=== PATIENT | female | born 1955 | race Caucasian/White ===

== ENCOUNTER 2017-07-16 00:24 | Outpatient (RCR) | payer OTHER, SELFPAY ==
[2017-07-16 11:23] VITALS: BP 148/76; PULSE 110; RESP 20; TEMP 36.2; BMI 67.6
--- NOTE | 2017-07-16 12:54 | PCM.WC.HP ---
(1) Obesity (BMI 30.0-34.9) Status: Chronic Current Visit: Yes Code(s): E66.9 - Obesity, unspecified (2) Diabetes mellitus Status: Chronic Current Visit: Yes Qualifiers: Diabetes mellitus type: type 2 Diabetes mellitus complication status: with neurologic complications Code(s): E11.9 - Type 2 diabetes mellitus without complications (3) Diabetic foot ulcer associated with type 2 diabetes mellitus Status: Acute Current Visit: Yes Qualifiers: Diabetic foot ulcer location: midfoot Laterality: left Non-pressure ulcer stage: with necrosis of muscle Qualified Code(s): E11.621 - Type 2 diabetes mellitus with foot ulcer; L97.423 - Non-pressure chronic ulcer of left heel and midfoot with necrosis of muscle; L97.423 - Non-pressure chronic ulcer of left heel and midfoot with necrosis of muscle; L97.423 - Non-pressure chronic ulcer of left heel and midfoot with necrosis of muscle; L97.423 - Non-pressure chronic ulcer of left heel and midfoot with necrosis of muscle Code(s): E11.621 - Type 2 diabetes mellitus with foot ulcer; L97.509 - Non-pressure chronic ulcer of other part of unspecified foot with unspecified severity (4) Gangrene associated with type 2 diabetes mellitus Status: Acute Current Visit: Yes Code(s): E11.52 - Type 2 diabetes mellitus with diabetic peripheral angiopathy with gangrene (5) Cellulitis of foot Status: Acute Current Visit: Yes Code(s): L03.119 - Cellulitis of unspecified part of limb History of Present Illness Date of Service: 07/16/17 Chief Complaint: Mckeon Grade IV diabetic left foot ulceration with gangrene and cellulitis History of Wound: This is a 62-year-old [facility] female who was in her normal state of health until approximately 3 months ago. Apparently, due to an ill-fitting shoe, she developed a small ulceration on the dorsum of her left foot. This became progressively more severe. She was treated by various means by her primary care physician, but the ulceration worsened, subsequently developing into gangrene and cellulitis. Patient presents at this time with a reddened, erythematous, swollen left foot and tino gangrene on the dorsum of her left foot which extends well into the subcutaneous tissue and likely involves tendon. Past Medical History Past Medical History: Chronic Problems Obesity (BMI 30.0-34.9) (Chronic) Diabetes mellitus (Chronic) Past Medical History: Patient is known to be diabetic, suffering from diabetes mellitus type 2. It is suspected that her diabetes is poorly controlled. She checks blood sugars twice weekly. She denies a history of myocardial infarction, congestive heart failure, hypertension, cerebrovascular accident, cancer, pulmonary disease, renal disease, thyroid disease, gastroesophageal reflux disease, arthritis, and hyperlipidemia. The patient is obese. Surgical History: - - Patient is undergone a section in the remote past. Umbilical hernia repair was performed in 1983. The patient is a T12 P 11 Ab1. Allergies/Adverse Reactions: Allergies cephalexin [From Keflex] Allergy (Verified 07/16/17 12:16) Rash - Family History Maternal - - Patient's mother at age of 49 from cardiac disease. Paternal - - Patient's father is 86 years of age and healthy. Social History: The patient is , and lives with her . 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 She denies use of alcohol and tobacco products. Smoking Status: Never smoker Tobacco Use: Non-smoker Alcohol: None Drugs: None Review of Systems Constitutional: Denies: Chills, Fever, Weight Change Eyes: Denies: Pain, Vision Change HEENT: Denies: Difficulty Hearing, Difficulty Swallowing, Sinus Congestion Cardiovascular: Denies: Chest Pain, Palpitations Respiratory: Denies: Cough, Shortness of Breath Gastrointestinal: Denies: Diarrhea, Nausea, Vomiting Genitourinary: Denies: Dysuria, Hematuria Endocrine: Denies: Heat/ Cold Intolerance, Polydipsia, Polyuria Hematologic/ Lymphatic: Denies: Easy Bruising, Easy Bleeding - Physical Exam Vital Signs Temp Pulse Resp BP 97.2 F L 110 H 20 H 148/76 H 07/16/17 11:23 07/16/17 11:23 07/16/17 11:23 07/16/17 11:23 General: Alert, Oriented x3, Cooperative, No apparent distress, Well developed, Well nourished, - - Patient is morbidly obese. HEENT: Atraumatic, PERRLA, EOMI, Normocephalic Oral: Moist Mucosa, No Gingival or Mucosal Lesions/ Ulcerations Neck: Supple, No JVD, Negative Carotid Bruits, No Nodes, No Nuchal Rigidity, Trachea Midline Lungs: Clear to auscultation, Normal air movement, No rhonchi, No wheeze, No rales Cardiovascular: Regular rate, Regular Rhythm, Normal S1, Normal S2, No murmurs, No Ectopic Activity Abdomen: Soft, Non Tender, Non-Distended, Obese Extremities: No clubbing, No cyanosis, No Calf Tenderness, - - Mild bilateral lower extremity swelling and edema is noted. Swelling and edema particularly noted relative to the left foot. Left foot is reddened and erythematous. Tino gangrene engulfs nearly the entire dorsum of the left foot, appearing to extend down to involve tendons. This represents a Mckeon Grade IV diabetic foot ulceration. There is also a small, professional ulceration on the left lateral calf. Wound Measurements and Assessment - Nurse 1 - General Ulcer Measurement Start: 07/16/17 00:28 Freq: Status: Active Protocol: Activity Type Activity Date Activity User E-Sign Co-Sign Detail Recorded Client Recorded Date Recorded By Document 07/16/17 11:23 DL [id number] 07/16/17 11:48 DL 07/16/17 11:23 Wound Center Nurse 1 [Ulcer Assessment Protocol: WC.WD.LOC] #2 L Lat LE -Current Size (cm) - Length 1 -Current Size (cm) - Width 0.7 -Current Size (cm) - Depth 0.1 -Total Square Cm 0.7 -Photo Taken Yes -Classification - Thickness Unclassifiable (Eschar Covered ) -Exudate Amt None Present (0 %) -Wound Margin Thickened -Granulation Amt None Present (0 %) -Necrosis Amt Large (67-100%) -Necrotic Tissue Type Eschar -Structure Exposed N/A -Texture (Kristel-wound Skin Appearance) No Abnormality -Moisture (Kristel-wound Skin Appearance No Abnormality ) -Color (Kristel-wound Skin Appearance) Erythema -Temperature (Kristel-wound Skin No Abnormality Appearance) (Pt Warm) -Ulcer Cleansing Wound Cleanser -Foul Odor after Cleansing No -Anesthetic Used 4% Lidocaine Solution #1 L Dorsal Foot -Current Size (cm) - Length 7.7 -Current Size (cm) - Width 9.6 -Current Size (cm) - Depth 0.6 -Total Square Cm 73.92 -Photo Taken Yes -Epithelialization Small 1-33% -Classification - Thickness Full Thickness without Exposed Support Structure -Classification - Mckeon Grading ( Grade 3 Diabetic Ulcer) -Exudate Amt Medium (34-66%) -Exudate Type Serosanguineous -Wound Margin Distinct, Outline Attached -Granulation Amt Small (1-33%) -Granulation Quality Red -Necrosis Amt Large (67-100%) -Necrotic Tissue Type Adherent Slough -Structure Exposed N/A -Texture (Kristel-wound Skin Appearance) Localized Edema -Moisture (Kristel-wound Skin Appearance No Abnormality ) -Color (Kristel-wound Skin Appearance) Erythema -Temperature (Kristel-wound Skin Hot Appearance) -Tenderness on Palpation (Kristel-wound Yes Skin Appearance) -Ulcer Cleansing Wound Cleanser -Foul Odor after Cleansing No -Anesthetic Used 4% Lidocaine Solution [Edema Assessment] -Right Calf (cm) 30 -Right Ankle (cm) 20.5 -Left Calf (cm) 31 -Left Ankle (cm) 24 WC - Nurse 2 - General Ulcer CM Notes Start: 07/16/17 00:28 Freq: Status: Active Protocol: Activity Type Activity Date Activity User E-Sign Co-Sign Detail Recorded Client Recorded Date Recorded By Document 07/16/17 12:43 [email or web address] [id number] 07/16/17 12:49 07/16/17 12:43 Wound Center Nurse 2 [Procedure/Treatment] #2 L Lat LE -Time 12:44 -Correct Patient Yes -Correct Side, Site, Position Yes -Procedure Performed No -Wound/Ulcer Outcome Not Healed -Ulcer Cleansing Not Cleansed -Cetacaine [place] No -Bleeding Controlled with NA #1 L Dorsal Foot -Time 12:49 -Correct Patient Yes -Correct Side, Site, Position Yes -Procedure Performed No -Wound/Ulcer Outcome Not Healed [See Physician Procedure note for Specifics] Pain Scale: 0-10 Numeric [Pain] -Is Patient Pain Free? Yes Neurological: Cranial nerves II-XII grossly intact Psych/Mental Status: Normal Affect, Appropriate, Alert and oriented to time, place, person, mood and affect Debridement Note Post-Debridement Measurements/Treatment WC - Nurse 2 - General Ulcer CM Notes Start: 07/16/17 00:28 Freq: Status: Active Protocol: Activity Type Activity Date Activity User E-Sign Co-Sign Detail Recorded Client Recorded Date Recorded By Document 07/16/17 12:43 [email or web address] [id number] 07/16/17 12:49 07/16/17 12:43 Wound Center Nurse 2 #2 L Lat LE -Time 12:44 -Correct Patient Yes -Correct Side, Site, Position Yes -Procedure Performed No -Wound/Ulcer Outcome Not Healed -Ulcer Cleansing Not Cleansed -Cetacaine [place] No -Bleeding Controlled with NA #1 L Dorsal Foot -Time 12:49 -Correct Patient Yes -Correct Side, Site, Position Yes -Procedure Performed No -Wound/Ulcer Outcome Not Healed Pain Scale: 0-10 Numeric Is Patient Pain Free? Yes No debridement was completed today Assessment/Plan Active Problems Obesity (BMI 30.0-34.9) (Chronic) Diabetes mellitus (Chronic) Diabetic foot ulcer associated with type 2 diabetes mellitus (Acute) Gangrene associated with type 2 diabetes mellitus (Acute) Cellulitis of foot (Acute) Assessment: This is a 62-year-old [facility] female who presents with a diabetic left foot ulceration representing a Mckeon Grade IV diabetic foot ulceration. There is tino gangrene, with apparent involvement of underlying subcutaneous tissues and tendons. There is an associated cellulitis. It appears as though this process started approximately 3 months ago with ill-fitted footwear. The patient's presenting manifestations are highly concerning for a limb threatening situation. This issue has been discussed with the patient and her , who is at the bedside, in detail. Plan: Arrangements are to be made for the patient to be transferred to the hospital Emergency Department. Delay of diagnosis and management is not felt to be in the patient's best interest, as her presenting symptoms and manifestations presented limb threatening condition. Diagnostic assessment will likely include admission laboratory studies, including a CBC, a metabolic profile, hemoglobin A1c, wound cultures, radiographs of the left foot, etc. Consultation with a practice consultant would likely be of benefit. It is anticipated that the patient will be started on appropriate antibiotic coverage. Noninvasive lower extremity arterial assessment will allow for assessment of the patient's lower extremity arterial perfusion. Once the patient's medical condition has been stabilized, her continuing outpatient management can be managed at the [facility]. Arrangements have been initiated for patient transfer.
--- NOTE | 2017-07-16 13:05 | HP.PCM_ITS ---
(1) Obesity (BMI 30.0-34.9) Status: Chronic Current Visit: Yes Code(s): E66.9 - Obesity, unspecified (2) Diabetes mellitus Status: Chronic Current Visit: Yes Qualifiers: Diabetes mellitus type: type 2 Diabetes mellitus complication status: with neurologic complications Code(s): E11.9 - Type 2 diabetes mellitus without complications (3) Diabetic foot ulcer associated with type 2 diabetes mellitus Status: Acute Current Visit: Yes Qualifiers: Diabetic foot ulcer location: midfoot Laterality: left Non-pressure ulcer stage: with necrosis of muscle Qualified Code(s): E11.621 - Type 2 diabetes mellitus with foot ulcer; L97.423 - Non-pressure chronic ulcer of left heel and midfoot with necrosis of muscle; L97.423 - Non-pressure chronic ulcer of left heel and midfoot with necrosis of muscle; L97.423 - Non-pressure chronic ulcer of left heel and midfoot with necrosis of muscle; L97.423 - Non- pressure chronic ulcer of left heel and midfoot with necrosis of muscle Code(s): E11.621 - Type 2 diabetes mellitus with foot ulcer; L97.509 - Non- pressure chronic ulcer of other part of unspecified foot with unspecified severity (4) Gangrene associated with type 2 diabetes mellitus Status: Acute Current Visit: Yes Code(s): E11.52 - Type 2 diabetes mellitus with diabetic peripheral angiopathy with gangrene (5) Cellulitis of foot Status: Acute Current Visit: Yes Code(s): L03.119 - Cellulitis of unspecified part of limb History of Present Illness Date of Service: 07/16/17 Chief Complaint: Mckeon Grade IV diabetic left foot ulceration with gangrene and cellulitis History of Wound: This is a 62-year-old [facility] female who was in her normal state of health until approximately 3 months ago. Apparently, due to an ill- fitting shoe, she developed a small ulceration on the dorsum of her left foot. This became progressively more severe. She was treated by various means by her primary care physician, but the ulceration worsened, subsequently developing into gangrene and cellulitis. Patient presents at this time with a reddened, erythematous, swollen left foot and tino gangrene on the dorsum of her left foot which extends well into the subcutaneous tissue and likely involves tendon. Past Medical History Past Medical History: Chronic Problems Obesity (BMI 30.0-34.9) (Chronic) Diabetes mellitus (Chronic) Past Medical History: Patient is known to be diabetic, suffering from diabetes mellitus type 2. It is suspected that her diabetes is poorly controlled. She checks blood sugars twice weekly. She denies a history of myocardial infarction , congestive heart failure, hypertension, cerebrovascular accident, cancer, pulmonary disease, renal disease, thyroid disease, gastroesophageal reflux disease, arthritis, and hyperlipidemia. The patient is obese. Surgical History: - - Patient is undergone a section in the remote past. Umbilical hernia repair was performed in 1983. The patient is a T12 P 11 Ab1. Allergies/Adverse Reactions: Allergies cephalexin [From Keflex] Allergy (Verified 07/16/17 12:16) Rash - Family History Maternal - - Patient's mother at age of 49 from cardiac disease. Paternal - - Patient's father is 86 years of age and healthy. Social History: The patient is , and lives with her . 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 She denies use of alcohol and tobacco products. Smoking Status: Never smoker Tobacco Use: Non-smoker Alcohol: None Drugs: None Review of Systems Constitutional: Denies: Chills, Fever, Weight Change Eyes: Denies: Pain, Vision Change HEENT: Denies: Difficulty Hearing, Difficulty Swallowing, Sinus Congestion Cardiovascular: Denies: Chest Pain, Palpitations Respiratory: Denies: Cough, Shortness of Breath Gastrointestinal: Denies: Diarrhea, Nausea, Vomiting Genitourinary: Denies: Dysuria, Hematuria Endocrine: Denies: Heat/ Cold Intolerance, Polydipsia, Polyuria Hematologic/ Lymphatic: Denies: Easy Bruising, Easy Bleeding - Physical Exam Vital Signs Temp Pulse Resp BP 97.2 F L 110 H 20 H 148/76 H 07/16/17 11:23 07/16/17 11:23 07/16/17 11:23 07/16/17 11:23 General: Alert, Oriented x3, Cooperative, No apparent distress, Well developed, Well nourished, - - Patient is morbidly obese. HEENT: Atraumatic, PERRLA, EOMI, Normocephalic Oral: Moist Mucosa, No Gingival or Mucosal Lesions/ Ulcerations Neck: Supple, No JVD, Negative Carotid Bruits, No Nodes, No Nuchal Rigidity, Trachea Midline Lungs: Clear to auscultation, Normal air movement, No rhonchi, No wheeze, No rales Cardiovascular: Regular rate, Regular Rhythm, Normal S1, Normal S2, No murmurs, No Ectopic Activity Abdomen: Soft, Non Tender, Non-Distended, Obese Extremities: No clubbing, No cyanosis, No Calf Tenderness, - - Mild bilateral lower extremity swelling and edema is noted. Swelling and edema particularly noted relative to the left foot. Left foot is reddened and erythematous. Tino gangrene engulfs nearly the entire dorsum of the left foot, appearing to extend down to involve tendons. This represents a Mckeon Grade IV diabetic foot ulceration. There is also a small, professional ulceration on the left lateral calf. Wound Measurements and Assessment - Nurse 1 - General Ulcer Measurement Start: 07/16/17 00:28 Freq: Status: Active Protocol: Activity Type Activity Date Activity User E-Sign Co-Sign Detail Recorded Client Recorded Date Recorded By Document 07/16/17 11:23 DL [id number] 07/16/17 11:48 DL 07/16/17 11:23 Wound Center Nurse 1 [Ulcer Assessment Protocol: WC.WD.LOC] #2 L Lat LE -Current Size (cm) - Length 1 -Current Size (cm) - Width 0.7 -Current Size (cm) - Depth 0.1 -Total Square Cm 0.7 -Photo Taken Yes -Classification - Thickness Unclassifiable (Eschar Covered ) -Exudate Amt None Present (0 %) -Wound Margin Thickened -Granulation Amt None Present (0 %) -Necrosis Amt Large (67-100%) -Necrotic Tissue Type Eschar -Structure Exposed N/A -Texture (Kristel-wound Skin Appearance) No Abnormality -Moisture (Kristel-wound Skin Appearance No Abnormality ) -Color (Kristel-wound Skin Appearance) Erythema -Temperature (Kristel-wound Skin No Abnormality Appearance) (Pt Warm) -Ulcer Cleansing Wound Cleanser -Foul Odor after Cleansing No -Anesthetic Used 4% Lidocaine Solution #1 L Dorsal Foot -Current Size (cm) - Length 7.7 -Current Size (cm) - Width 9.6 -Current Size (cm) - Depth 0.6 -Total Square Cm 73.92 -Photo Taken Yes -Epithelialization Small 1-33% -Classification - Thickness Full Thickness without Exposed Support Structure -Classification - Mckeon Grading ( Grade 3 Diabetic Ulcer) -Exudate Amt Medium (34-66%) -Exudate Type Serosanguineous -Wound Margin Distinct, Outline Attached -Granulation Amt Small (1-33%) -Granulation Quality Red -Necrosis Amt Large (67-100%) -Necrotic Tissue Type Adherent Slough -Structure Exposed N/A -Texture (Kristel-wound Skin Appearance) Localized Edema -Moisture (Kristel-wound Skin Appearance No Abnormality ) -Color (Kristel-wound Skin Appearance) Erythema -Temperature (Kristel-wound Skin Hot Appearance) -Tenderness on Palpation (Kristel-wound Yes Skin Appearance) -Ulcer Cleansing Wound Cleanser -Foul Odor after Cleansing No -Anesthetic Used 4% Lidocaine Solution [Edema Assessment] -Right Calf (cm) 30 -Right Ankle (cm) 20.5 -Left Calf (cm) 31 -Left Ankle (cm) 24 WC - Nurse 2 - General Ulcer CM Notes Start: 07/16/17 00:28 Freq: Status: Active Protocol: Activity Type Activity Date Activity User E-Sign Co-Sign Detail Recorded Client Recorded Date Recorded By Document 07/16/17 12:43 [email or web address] [id number] 07/16/17 12:49 07/16/17 12:43 Wound Center Nurse 2 [Procedure/Treatment] #2 L Lat LE -Time 12:44 -Correct Patient Yes -Correct Side, Site, Position Yes -Procedure Performed No -Wound/Ulcer Outcome Not Healed -Ulcer Cleansing Not Cleansed -Cetacaine [place] No -Bleeding Controlled with NA #1 L Dorsal Foot -Time 12:49 -Correct Patient Yes -Correct Side, Site, Position Yes -Procedure Performed No -Wound/Ulcer Outcome Not Healed [See Physician Procedure note for Specifics] Pain Scale: 0-10 Numeric [Pain] -Is Patient Pain Free? Yes Neurological: Cranial nerves II-XII grossly intact Psych/Mental Status: Normal Affect, Appropriate, Alert and oriented to time, place, person, mood and affect Debridement Note Post-Debridement Measurements/Treatment WC - Nurse 2 - General Ulcer CM Notes Start: 07/16/17 00:28 Freq: Status: Active Protocol: Activity Type Activity Date Activity User E-Sign Co-Sign Detail Recorded Client Recorded Date Recorded By Document 07/16/17 12:43 [email or web address] [id number] 07/16/17 12:49 07/16/17 12:43 Wound Center Nurse 2 #2 L Lat LE -Time 12:44 -Correct Patient Yes -Correct Side, Site, Position Yes -Procedure Performed No -Wound/Ulcer Outcome Not Healed -Ulcer Cleansing Not Cleansed -Cetacaine [place] No -Bleeding Controlled with NA #1 L Dorsal Foot -Time 12:49 -Correct Patient Yes -Correct Side, Site, Position Yes -Procedure Performed No -Wound/Ulcer Outcome Not Healed Pain Scale: 0-10 Numeric Is Patient Pain Free? Yes No debridement was completed today Assessment/Plan Active Problems Obesity (BMI 30.0-34.9) (Chronic) Diabetes mellitus (Chronic) Diabetic foot ulcer associated with type 2 diabetes mellitus (Acute) Gangrene associated with type 2 diabetes mellitus (Acute) Cellulitis of foot (Acute) Assessment: This is a 62-year-old [facility] female who presents with a diabetic left foot ulceration representing a Mckeon Grade IV diabetic foot ulceration. There is tino gangrene, with apparent involvement of underlying subcutaneous tissues and tendons. There is an associated cellulitis. It appears as though this process started approximately 3 months ago with ill-fitted footwear. The patient's presenting manifestations are highly concerning for a limb threatening situation. This issue has been discussed with the patient and her , who is at the bedside, in detail. Plan: Arrangements are to be made for the patient to be transferred to the hospital Emergency Department. Delay of diagnosis and management is not felt to be in the patient's best interest, as her presenting symptoms and manifestations presented limb threatening condition. Diagnostic assessment will likely include admission laboratory studies, including a CBC, a metabolic profile, hemoglobin A1c, wound cultures, radiographs of the left foot, etc. Consultation with a can tender would likely be of benefit. It is anticipated that the patient will be started on appropriate antibiotic coverage. Noninvasive lower extremity arterial assessment will allow for assessment of the patient's lower extremity arterial perfusion. Once the patient's medical condition has been stabilized, her continuing outpatient management can be managed at the [facility]. Arrangements have been initiated for patient transfer.
== END 2017-08-11 23:59 ==
LOC: WC 00:24
PROVIDERS: Visit Provider Surgery
DX: E11.621 Type 2 diabetes mellitus with foot ulcer (principal); E66.01 Morbid (severe) obesity due to excess calories; Z71.3 Dietary counseling and surveillance; L97.423 Non-pressure chronic ulcer of left heel and midfoot with necrosis of muscle; E11.52 Type 2 diabetes mellitus with diabetic peripheral angiopathy with gangrene; L03.119 Cellulitis of unspecified part of limb
CPT/HCPCS: 99212; G0463

== ENCOUNTER 2017-08-26 14:14 | Inpatient (IN) | payer OTHER, SELFPAY ==
[2017-08-26 14:42] VITALS: BP 180/84; PULSE 73; RESP 16; TEMP 36.7; O2SAT 95
[2017-08-26 14:48] VITALS: BMI 31.6
[2017-08-26 14:52] VITALS: BMI 31.6
[2017-08-26 15:25] VITALS: PULSE 68
--- NOTE | 2017-08-26 15:25 | PCM.HP.STD ---
Problem List (1) Gangrene of left foot Status: Chronic (2) Cellulitis of left foot Status: Resolved (3) Diabetic foot ulcer associated with type 2 diabetes mellitus Status: Acute Qualifiers: Diabetic foot ulcer location: midfoot Laterality: left Non-pressure ulcer stage: with necrosis of muscle Qualified Code(s): E11.621 - Type 2 diabetes mellitus with foot ulcer; L97.423 - Non-pressure chronic ulcer of left heel and midfoot with necrosis of muscle (4) Chronic ulcer of left foot with necrosis of muscle Status: Chronic (5) Diabetes mellitus Status: Chronic Qualifiers: Diabetes mellitus type: type 2 Diabetes mellitus complication detail: with polyneuropathy (6) Obesity (BMI 30.0-34.9) Status: Chronic (7) Peripheral vascular disease Status: Chronic (8) Non-compliance Status: Acute Comment: with medications and with follow up in the wound care clinic (9) Hypertension Status: Chronic History of Present Illness Date of Admission: 08/26/17 Chief Complaint: Pt sent to the hosp by Dr. Aguillon. She has gangrene of the left hallux and a non-healing wound of the dorsum of the left foot and is scheduled for surgery 08/27 for amputation and debridement The patient is a 62 year old F with a past medical history of hypertension, diabetes mellitus type 2, diabetic peripheral polyneuropathy, peripheral vascular disease and obesity who is well known to me from a recent admission to [facility] in early July 2017 for wet gangrene of the left lower extremity associated with diabetes mellitus type 2 and peripheral vascular disease. She had a stent placed in the left mid popliteal artery and a balloon angioplasty of the mid left anterior tibial artery. At that admission she also had extensive debridement by podiatry and was discharged home on Levaquin and flagyl, metformin, lisinopril and Plavix however currently she is taking only a multivitamin daily and vitamin C. She has not been compliant with her medications and also has not been compliant with regular follow-up in the wound care center or with podiatry. She was seen in the office by Dr. Aguillon today and sent to the hospital for debridement of the wound on the dorsum of the foot and amputation of the Left Hallux. During the admission in July 2017 she complained of exertional chest pain and had an abnormal nuclear stress test. She was taken for cardiac catheterization but that report is not in the chart and we will request it from [facility]. She denies fever, chills, sweats, pain in her left foot, nausea, vomiting, abdominal pain. She is not checking her blood sugars at home. Hemoglobin A1c at her last admission was 6.9%. Past Medical History Past Medical History (Chronic Problems): Chronic Problems Gangrene of left foot (Chronic) Hypertension (Chronic) Obesity (BMI 30.0-34.9) (Chronic) Diabetes mellitus (Chronic) Chronic ulcer of left foot with necrosis of muscle (Chronic) Peripheral vascular disease (Chronic) Diabetes mellitus with neuropathy (Chronic) Malnutrition (Chronic) Allergies cephalexin [From Keflex] Allergy (Verified 08/01/17 10:34) Rash morphine Allergy (Verified 08/01/17 10:34) Unknown Home Medications: Ambulatory Orders Medication Instructions Recorded Ascorbic Acid [Vitamin C] 500 mg PO DAILY@0800 08/26/17 Multivitamins,Therapeutic 1 tablet PO DAILY 08/26/17 [Multivitamin] Surgical History: herniorrhaphy, - - Extensive debridement of the left foot in July 2017 secondary to wet gangrene. She had an angiogram of the left lower extremity with a stent placed in the popliteal artery and balloon angioplasty of the left tibial artery down to the dorsalis pedis. Psychiatric History: No pertinent psych hx [employer] History: No pertinent [employer] history Smoking Status: Never smoker Tobacco Use: Non-smoker Alcohol: None Drugs: None - *Family History Maternal History Items: - - Patient's mother at age of 49 from cardiac disease. Paternal History Items: - - Patient's father is 86 years of age and healthy. Review of Systems Constitutional: Denies: Chills, Fever, Weight Change HEENT: Denies: Head Aches, Sinus Congestion, Sinus Drainage Cardiovascular: Denies: Chest Pain, Light Headedness, Palpitations Respiratory: Denies: Cough, Shortness of breath at rest, Sputum production Gastrointestinal: Denies: Abdominal Pain, Nausea, Vomiting Genitourinary: Denies: Dysuria Gynecological: Denies: Breast symptoms, Vaginal bleeding Musculoskeletal: Denies: Foot Pain, Joint Pain, Joint Tenderness, Leg Pain Skin: Reports: Wounds - She has a nonhealing wound on the dorsum of the left foot and dry gangrene of the left hallux.. Denies: Jaundice, Rash Psychiatric: Denies: Anxiety, Depression, Homicidal Ideations, Suicidal Ideations Endocrine: Denies: Change in Body Habitus Hematologic/ Lymphatic: Denies: Hx of blood clot VTE Information - Inpt Only VTE Present on Admission: No VTE Mechan Device Prophylaxis: SCD's, Knee High CASSANDRA Hose VTE Pharm Prophylaxis ordered?: Yes Patient Problems: Active and Suspected Problems Non-compliance (Acute) with medications and with follow up in the wound care clinic Gangrene associated with type 2 diabetes mellitus (Acute) - Physical Exam General: Alert, Oriented x3, Cooperative, No apparent distress, Well developed, Well nourished HEENT: Atraumatic, PERRLA, EOMI, Normocephalic Oral: Moist Mucosa Neck: Supple, No JVD, Negative Carotid Bruits Lungs: Clear to auscultation, Normal air movement Cardiovascular: Regular rate, Regular Rhythm, Normal S1, Normal S2, Murmur - She has a 2/6 systolic murmur at the second right intercostal space with radiation to the lower left sternal border. Abdomen: Bowel Sounds Present, Soft, Non Tender Extremities: No clubbing, No cyanosis, No edema Skin: Ulcer/ Wound - on the dorsum of the left foot.....80% red granulation tissue with islands of black/louis necrosis.......there is a dry black area on the medial side of the first metatarsal and the great toes is black and dry. The extensor hallux tendon is exposed and dry. the is no odor and no periwound erythema. There is no purulent DC. the margins of the wound on the dorsum of the foot are dry and somewhat rolled under Musculoskeletal: No Muscle Wasting Neurological: Cranial nerves II-XII grossly intact, Neuro grossly intact Psych/Mental Status: Normal Affect, Appropriate - she does not really seem to have good insight to the gravity of the situation and has been non-compliant with medications and follow up and I am very surprised it looks as good as it does Vital Signs Temp Pulse Resp BP Pulse Ox 98.0 F 73 16 180/84 H 95 08/26/17 14:42 08/26/17 14:42 08/26/17 14:42 08/26/17 14:42 08/26/17 14:42 Oxygen Delivery Method Room Air Weight: 195 lb 12.328 oz Body Mass Index (BMI) 31.6 Assessment/Plan Active and Suspected Problems Non-compliance (Acute) with medications and with follow up in the wound care clinic Gangrene associated with type 2 diabetes mellitus (Acute) Impressions 1. Dry gangrene left hallux 2. Nonhealing ulceration on the dorsum of the left foot 3. Peripheral vascular disease-status post stent to the left popliteal artery and balloon angioplasty of the tibial artery in Jul [address] Cm 4. Diabetes mellitus type 2 5. Hypertension 6. Obesity 7. Diabetic peripheral polyneuropathy 8. Noncompliance with medication and with follow-up for wound care-complicates care, management, prognosis and recovery. N.p.o. after midnight 1 dose Lovenox 40 mg subcu now and hold after midnight...... resume 24 hours after surgery Start lisinopril for blood pressure control Hold Plavix for now but would suggest restarting postoperatively due to significant peripheral vascular disease Lab has been ordered. No evidence of infection at this time so no antibiotics have been ordered 4 times daily blood sugars with sliding scale insulin coverage......... diabetes is well controlled as an outpatient with diet alone Code Visit Inpatient E&M: 19167 Init Hosp L2
--- NOTE | 2017-08-26 15:48 | NURSING ---
wound photo: left foot
[2017-08-26] MEDS: 0.9% Normal Saline 1,000 ML 50 ML IV (16:26)
[2017-08-26 17:21] LABS: Bedside Glucose 145 mg/dL (70-110)
--- NOTE | 2017-08-26 17:52 | PN_ITS ---
Patient Problems: Active and Suspected Problems Non-compliance (Acute) with medications and with follow up in the wound care clinic Gangrene associated with type 2 diabetes mellitus (Acute) Subjective: This 62-year-old diabetic female was directly admitted to the hospital this afternoon in order to be medically optimized prior to undergoing her surgical procedure tomorrow afternoon August 27. The patient is well-known to me, as I followed the patient last time she was admitted in early July. After vascular optimization by Dr. Cm on July 19, I surgically debrided the dorsal left foot ulcer on July 20. After first debridement procedure, the left hallux remained slightly dusky, and there were some areas of the ulcer that showed less bleeding than other parts. The patient and her were both notified that further procedures would need to be done in the future, however at this point we would need to let the area demarcate over the coming weeks. After the patient was eventually discharged from the hospital, she has been following up with me in office. Initially, the patient was non compliant and placed what she described as a charcoal tar/olive oil mix over the ulcer because she said it was shown to heal wounds in the [facility]. She also would show up to office wearing a boot with laces overlying the ulcer site. It was stressed to the patient the importance of following dressing change instructions and keeping pressure off of the ulcer site and left hallux. The last month the ulcer has continued to demarcate as well as the left hallux. At this point, the area has been remaining stable and further surgical debridement as well as partial amputation of the first ray is warranted at this time. Currently, the patient denies any feelings of nausea, vomiting, fever, chills, or pain to the left foot. - Physical Exam General: Alert, Oriented x3, Cooperative Extremities: Diminished Peripheral Pulses - DP and PT pulses nonpalpable at this time due to ulcer., Edema - Slight lower extremity edema appreciated, - - Delayed capillary refill time appreciated to digits Skin: Ulcer/ Wound - Ulcer appreciated to the dorsal aspect of the right foot. Desiccated tendon appreciated in the ulcer. Dry gangrenous hallux is noted. No purulence, no malodor, no probing, no tracking, no undermining are appreciated at this time. No surrounding cellulitis noted. The ulcer base is a combination of granular tissue, fibrotic tissue, necrotic tissue, and slough. More granulation tissue present proximally and laterally. Musculoskeletal: - - Muscle strength to the left lower extremity unable to be tested due to ulcer. Neurological: - - Protective sensation absent to greater than 2 of 5 pedal sites tested at random using a 5.07 [place] monofilament Psych/Mental Status: Normal Affect, Appropriate Vital Signs Temp Pulse Resp BP Pulse Ox 98.0 F 73 16 180/84 H 95 08/26/17 14:42 08/26/17 14:42 08/26/17 14:42 08/26/17 14:42 08/26/17 14:42 Oxygen Delivery Method Room Air Weight: 88.8 kg Body Mass Index (BMI) 31.6 POC Glucose 08/26/17 17:16 POC Glucose 145 H Assessment/Plan Active and Suspected Problems Non-compliance (Acute) with medications and with follow up in the wound care clinic Gangrene associated with type 2 diabetes mellitus (Acute) Chronic ulcer left dorsal foot Dry gangrene of left hallux Diabetes mellitus II with neuropathy PVD The patient was examined and evaluated bedside this evening. The wound nurse had already seen and evaluated the patient as well as took pictures of the left foot and dressed the foot. The dressing was not taken down this evening, as it had just been wrapped. Order placed for surgical consent for debridement of all necrotic, nonviable, infected soft tissue and bone as well as partial first ray amputation of the left foot. N.p.o. orders also placed for surgery, as patient is scheduled to undergo this procedure on August [address] Mcdonnell already had orders placed for CBC with differential, CMP, ESR, CRP, hemoglobin A1c and results are pending at this time. Vital signs were reviewed. The planned surgical procedure was then discussed in depth and in detail with the patient as well as the patient's with her permission. All risks, benefits, alternative procedures, and possible outcomes were discussed with the patient and her . They are advised that the complications and risks include, but are not limited to, infection, need for further surgeries in the future, reoccurrence, transfer lesions, deformities, weakness, loss of strength, loss of function, further ulceration, nonhealing, delayed healing, blood clots, chronic swelling, arthritis, Charcot foot and ankle, nerve damage, inability to walk, inability to wear shoes, severe pain, complex regional pain syndrome, need for below knee amputation and complete loss of limb, or even loss of life. They relate that they understand all of this. The alternative options were discussed. All of the patient's and the patient's 's questions were answered to their satisfaction. They agree to continue with the planned procedure for tomorrow. Please feel free to contact me with any questions or concerns.
[2017-08-26 18:10] LABS: Absolute Lymphocyte Count 1.94 X10^3/ul (0.83-4.51); Absolute Neutrophil Count 3.2 X10^3/uL (2.0-7.7); Basophil# 0.02 X10^3/uL; Basophil% 0.3 % (0-1); Eosinophil# 0.11 X10^3/uL; Eosinophils% 1.9 % (0-5); Hematocrit 38.5 % (37-47); Hemoglobin 12.6 g/dl (12.0-15.0); Lymphocyte # 1.94 X10^3/ul (4.0); Lymphocyte % 33.2 % (19-41); Mean Corp Hgb Conc 32.7 g/gl (32-36); Mean Corpuscular Hgb 27.7 pg (27.0-32.0); Mean Corpuscular Volume 84.6 fL (81-99); Mean Platelet Vol. 9.4 fl (6.2-12.0); Monocyte# 0.57 X10^3/uL; Monocyte% 9.8 % (0-10); Neutrophil # 3.19 X10^3/uL (2.7-7.7); Neutrophil % 54.6 % (47-70); Platelet Count 240 K/mm3 (150-450); RBC Distribution Width CV 16.1 % (11.6-14.6); Red Blood Count 4.55 M/mm3 (4.2-5.4); White Blood Count 5.8 K/mm3 (4.4-11.0)
[2017-08-26 18:18] LABS: POSITIVE DIFFERENTIAL NO; POSITIVE MORPHOLOGY NO
[2017-08-26 18:26] LABS: Hemoglobin A1c 6.4 % (4.2-6.3)
[2017-08-26 18:51] LABS: ALB/GLOB Ratio 0.9 RATIO (0.9-2.4); AST(SGOT) 27 U/L (15-37); Alanine Aminotransfer ALT/SGPT 25 U/L (12-78); Albumin, Serum 3.2 g/dL (3.4-5.0); Alkaline Phosphatase 66 U/L (45-117); Anion Gap 6 (5-15); BUN 16 mg/dL (7-18); BUN/Creat Ratio 31.1 RATIO (10-20); Calcium,Total 8.9 mg/dL (8.5-10.1); Chloride 105 mmol/L (98-107); Creatinine, Serum 0.51 mg/dL (0.55-1.02); EST Glomerular Filtration Rate 129 mL/min (>60); Est Glom Filt Rate - Afr Amer 156 mL/min (>60); Estimated Creatinine Clearance 107.07 ml/min; Globulin 3.7 g/dL (2.2-4.2); Glucose 131 mg/dL (70-110); Magnesium 1.8 mg/dL (1.6-2.6); Potassium 4.1 mmol/L (3.5-5.1); Protein, Total 6.9 g/dL (6.4-8.2); Sodium Level 138 mmol/L (136-145)
[2017-08-26 18:56] LABS: Erythrocyte Sedimentation Rate 38 mm/hr (0-30)
[2017-08-26 21:46] VITALS: BP 147/76; PULSE 71; RESP 16; TEMP 36.9; O2SAT 95
[2017-08-26] MEDS: Lisinopril 10 MG Tablet PO (22:02)
[2017-08-26 22:16] LABS: Bedside Glucose 139 mg/dL (70-110)
[2017-08-27] VITALS (12 sets, daily range): BP systolic 136–182; BP diastolic 68–87; PULSE 66–91; RESP 16–20; TEMP 35.5–36.4; O2SAT 94–97; BMI 31.6
--- NOTE | 2017-08-27 06:00 | EKG12_ITS ---
Test Reason : PRE OP Blood Pressure : / mmHG Vent. Rate : 071 BPM Atrial Rate : 071 BPM P-R Int : 188 ms QRS Dur : 084 ms QT Int : 408 ms P-R-T Axes : 066 044 056 degrees QTc Int : 443 ms Sinus rhythm with occasional Premature ventricular complexes Otherwise normal ECG When compared with ECG of 20-JUL-2017 05:27, Premature ventricular complexes are now Present Confirmed by TIMMY GREEN ([id number]), editor trade journal MARILYN WRIGHT ([id number]) on 09/05/2017 1:40:25 PM Referred By: KIRA Confirmed By:TIMMY GREEN
[2017-08-27 06:40] LABS: Bedside Glucose 131 mg/dL (70-110)
[2017-08-27] MEDS: Multivitamins,Therapeutic Tablet 1 TABLET PO (07:30)
[2017-08-27] MEDS: Ascorbic Acid 500 MG Tablet PO (07:30)
[2017-08-27] MEDS: Lisinopril 10 MG Tablet PO ×2 (07:31→21:43)
--- NOTE | 2017-08-27 12:09 | CASEMGMT ---
RN CM Face to Face with patient for initial transition planning/care coordination assessment. RN CM introduced self and role at [facility]. Patient sitting up in bed, alert and oriented, at bedside. Patient willing to participate in assessment and is able to answer all questions appropriately. Care providers, pharmacy, and demographics verified. See link attached. Patient wishes to discharge home, denies need for home health or DME at this time. Patient states that daughter assists with dressing changes and per patient doctor stated they would be doing a dressing that is once weekly and changed in wound clinic. Patient and state that they have a wheelchair at home as well as cane and crutches. If walker is needed patient and state they will find one on their own. Patient and state they have access to transportation to appointments. Patient states he has no further needs or concerns at this time. CM to follow for discharge planning needs that may arise. Disposition Plan: Patient to discharge home with family support and follow-up plans in place. SEKOU SPRAGUE to monitor for discharge needs.
[2017-08-27] MEDS: 0.9% Normal Saline 1,000 ML 50 ML IV (12:10)
[2017-08-27 12:16] LABS: Bedside Glucose 129 mg/dL (70-110)
--- NOTE | 2017-08-27 14:58 | RAD_ITS ---
STUDY: X-RAY - LEFT FOOT CLINICAL: Female, 62 years old. Fluoroscopic guidance for toe amputation TECHNIQUE: 1 view(s) of the foot. Dose area product: 0.284 cGycm2 COMPARISON: None. FINDINGS: Partial amputation of the first metatarsus. No malalignment. RAD/Foot 2 Views IMPRESSION: Fluoroscopic guidance for first metatarsal amputation. Electronically Signed: Tj Campbell MD at 19:53 EST , Service support ,
--- NOTE | 2017-08-27 15:00 | BON_PTH ---
PATIENT: CLAYTON ALVAREZ LOC: MS3 U#:[id number] AGE/SX: 62/F ROOM: MS311 RE08/26/[address]: Dr. Juan Aguillon DPM : 1955 BED: 1 DIS: 08/29/2017 SPEC #: [id number] RECD: 08/28/17 09:31 STATUS: TORI REJesse #: [id number] CLARITA: 08/27/17 15:[address]: Juan Aguillon DEPT: SURGICAL PATHOLOGY RECD BY: Otis Orr ENTERED: 08/28/17 10:22 SP TYPE: Bone OTHR DR: Dr. Billie Mcdonnell, DO Dr. Rinku Mercado DO Tissues: A - Great toe, NOS B - Bone of foot, NOS Procedures: Decalcification bone/plaque Special Stain Group I Surgery Specimen Level III Surgery Specimen Level IV AFB Stain (control) GMS Stain (control) HEADER OPERATION: Debridement of all nonviable, necrotic, infected soft tissue PRE-OP DIAGNOSIS: Gangrene, left foot, cellulitis, left foot, diabetic foot ulcer, chronic ulcer of left foot with necrosis of muscle, peripheral vascular disease TISSUE SUBMITTED: A. Left great toe and 1st metatarsal, B. Clearance fragment, left foot MICROSCOPIC DIAGNOSIS A. Left great toe and first metatarsal, amputation: Gangrenous necrosis and associated inflammation. Special stains for acid fast bacilli and fungi are negative for organisms; matched controls are appropriate. Detached piece of bone with chronic inflammation, negative for acute osteomyelitis. B. Clearance fragment left foot: A piece of bone with chronic inflammation, negative for acute osteomyelitis. SJ:sophia 09/03/17 MICROSCOPIC DESCRIPTION Slides are reviewed. GROSS DESCRIPTION A - Received in fixative is one container labeled with the patient's name and designated left great toe and first metatarsal. The specimen consists of a portion of toe measuring 6 x 3 x 2.5 cm. The entire skin appears to be brownish-black and gangrenous. Also present in the container are multiple detached pieces of soft tissue measuring in aggregate 6 x 4 x 0.5 cm. Also present in the container are three detached pieces of bone measuring in aggregate 4 x 2.5 x 2.5 cm. Quarter Trimmer sections are submitted in five cassettes as follows: 1 ? Gangrenous portion of skin, 2 ? Detached pieces of soft tissue, 3 ? Bone underneath the gangrenous area, 4 & 5 ? detached pieces of bone. B - Received in fixative is one container labeled with the patient's name and designated clearance fragment left foot. The specimen consists of a piece of bone measuring 1 x 1.2 x 1 cm. The entire specimen is submitted in one cassette after decalcification. / TSERING:sophia 08/28/17 TC:2 CPT: 86376, 54262, 92625, 50329 x2
[2017-08-27] MEDS: Clindamycin 900 MG/50 ML BAG 75 MG IV (15:10)
[2017-08-27] MEDS: Bupivacaine Mpf 0.5% 30 ML VIAL (15:16)
--- NOTE | 2017-08-27 15:26 | PCA ---
PT OFF FLOOR
--- NOTE | 2017-08-27 16:54 | RAD_ITS ---
STUDY: X-RAY - LEFT FOOT CLINICAL: Female, 62 years old. Postop TECHNIQUE: 3 view(s) of the foot. COMPARISON: August 27, 2017 FINDINGS: Normal talus, calcaneus, and tarsal bones. Normal visualized subtalar, talonavicular, calcaneocuboid, tarsal and tarsometatarsal articulations. Postsurgical changes status post amputation of the great toe through the base of the metatarsal.. Normal metatarsophalangeal joint of the great toe. Normal tibial and fibular sesamoid bones. Normal interphalangeal joint of the great toe. Normal phalanges of the great toe. Normal second through fifth metatarsophalangeal joints. Normal interphalangeal joints and phalanges of the lesser toes. There is diffuse soft tissue swelling of the mid to distal medial foot RAD/Foot min 3 Views IMPRESSION: Postsurgical changes status post amputation of the great toe through the proximal metatarsal Electronically Signed: Luis Germain MD at 17:47 EST , Service support ,
--- NOTE | 2017-08-27 16:56 | PCA ---
PT OFF FLOOR
--- NOTE | 2017-08-27 17:04 | PCM.IMDPSTOP ---
Problem List (1) Chronic ulcer of left foot with necrosis of bone Status: Chronic (2) Gangrene of left foot Status: Chronic (3) Diabetes mellitus with neuropathy Status: Chronic (4) Obesity (BMI 30.0-34.9) Status: Chronic (5) Peripheral vascular disease Status: Chronic (6) Malnutrition Status: Chronic Immediate Post-Op Note Date of Procedure: 08/27/17 Primary Surgeon/Physician: Juan Aguillon DPM deputy of counter intelligence: Marci Hardin Pre-Operative Diagnosis: Gangrene of left hallux with chronic ulcer of dorsal left foot down to necrotic bone. Post-Operative Diagnosis: same Surgery/Procedure Performed:: Debridement of ulceration down to bone of left foot with partial first ray amputation. Description of Surgical Findings:: Necrotic and infected ulcer down to bone. Hemostasis controlled. See detailed operation report. The patient tolerated the procedure and anesthesia well. She was transferred to PACU with vital signs stable and vascular status intact to the left foot. All orders were placed electronically and patient will continue to be followed while in the hospital. Estimated Blood Loss: 100 Specimen's removed: Amputated left hallux and distal part of left first metatarsal sent to pathology and microbiology for further evaluation. Clear fragment of left first metatarsal sent to pathology and microbiology for further evaluation. Type of Anesthesia:: Local MAC - Admit VTE Documentation VTE Present on Admission: No VTE Mechan Device Prophylaxis: SCD's VTE Pharm Prophylaxis ordered?: Yes
--- NOTE | 2017-08-27 17:17 | OP.PN_ITS ---
Problem List (1) Chronic ulcer of left foot with necrosis of bone Status: Chronic (2) Gangrene of left foot Status: Chronic (3) Diabetes mellitus with neuropathy Status: Chronic (4) Obesity (BMI 30.0-34.9) Status: Chronic (5) Peripheral vascular disease Status: Chronic (6) Malnutrition Status: Chronic Immediate Post-Op Note Date of Procedure: 08/27/17 Primary Surgeon/Physician: Juan Aguillon DPM bus and trolley inspecting dispatcher: Marci Hardin Pre-Operative Diagnosis: Gangrene of left hallux with chronic ulcer of dorsal left foot down to necrotic bone. Post-Operative Diagnosis: same Surgery/Procedure Performed:: Debridement of ulceration down to bone of left foot with partial first ray amputation. Description of Surgical Findings:: Necrotic and infected ulcer down to bone. Hemostasis controlled. See detailed operation report. The patient tolerated the procedure and anesthesia well. She was transferred to PACU with vital signs stable and vascular status intact to the left foot. All orders were placed electronically and patient will continue to be followed while in the hospital. Estimated Blood Loss: 100 Specimen's removed: Amputated left hallux and distal part of left first metatarsal sent to pathology and microbiology for further evaluation. Clear fragment of left first metatarsal sent to pathology and microbiology for further evaluation. Type of Anesthesia:: Local MAC - Admit VTE Documentation VTE Present on Admission: No VTE Mechan Device Prophylaxis: SCD's VTE Pharm Prophylaxis ordered?: Yes
--- NOTE | 2017-08-27 17:33 | OP.PCM_ITS ---
Problem List (1) Chronic ulcer of left foot with necrosis of bone Status: Chronic (2) Gangrene of left foot Status: Chronic (3) Diabetes mellitus with neuropathy Status: Chronic (4) Obesity (BMI 30.0-34.9) Status: Chronic (5) Peripheral vascular disease Status: Chronic (6) Malnutrition Status: Chronic Report of Operation Date of Procedure: 08/27/17 Pre-Operative Diagnosis: Gangrene of left hallux with chronic ulcer of dorsal left foot down to necrotic bone. Post-Operative Diagnosis: same Surgery/Procedure Performed:: Debridement of ulceration down to bone of left foot with partial first ray amputation. Description of Surgical Findings:: Materials: 2-0 prolene Hemostasis: Anatomic dissection. 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 Clear fragment of left first metatarsal sent to pathology and microbiology for further evaluation. Estimated Blood Loss (mL): 100 Description of Procedure: Indications: This patient is a 62-year-old diabetic female, who has a history of diabetes, peripheral vascular disease, obesity, and a nonhealing ulcer to the dorsal aspect of the left foot down to necrotic bone as well as a gangrenous left hallux. This patient was first seen on consult during an earlier hospital stay in early July 2017. At that time, the patient and her relate that the ulcer area started as a scab 3 months prior, and it continued to increase in size while they were trying to treat by applying different lotions and salves as well as herbs and home wound care. Eventually the patient presented to the wound center and was then admitted to the hospital with a gangrenous and malodorous ulcer. On July 19, 2017, Dr. Cm with vascular surgery, performed an angiogram. After completion of angiogram Dr. Cm indicated that the patient was maximized from a vascular circulation standpoint and it was okay to proceed with debridement of her ulcer. The next day on July 20, I took the patient to surgery for surgical debridement of the ulceration down to the tendon and muscle layer. Upon completion of the procedure, I related to the patient as well as the patient's with her permission, that the blood flow was much better to the lateral and proximal aspects of the ulcer site, and there was less bleeding distally and medially. Her left hallux at that time was slightly dusky. The patient and her were both informed that further surgical intervention would be needed in the future once the left ulcer site and hallux were able to further demarcate. Once the patient was discharged from the hospital, she has been following up with me in office on a weekly basis. At her initial office visit the patient presented to office with a thick black layer of topical ointment over her ulcer site. She says that in the [facility] community they use this charcoal tar/olive oil mixture to help heal areas. It was stressed with the patient that she needs to strictly obey the dressing change orders and be compliant in order to heal the foot. She has also presented to office wearing a tied boot over the foot when she was instructed to have absolutely no pressure over the left foot. Again compliance was stressed. Over the last month, the ulcer site and left hallux have been closely monitored while allowing the area to demarcate. As previously noted, tissue to the lateral and proximal aspects of the ulcer site was noted to be more granular in nature and there were increasing areas of fibrotic tissue, slough, necrotic and gangrenous tissue further distal and medial. The left hallux that started out as dusky, continued to progress into a dry gangrene of the entire hallux. All of the options were then discussed with the patient and the patient's . At the patient's most recent office visit, the area was noted to be stable and demarcated, and it was recommended at this time to the patient and the patient's , that we go ahead and proceed with further debridement of all nonviable necrotic and infected soft tissue and bone with partial first ray amputation of the left foot. The patient was then admitted back to the hospital in order to be medically optimized for surgery. The case was discussed with Dr. Mcdonnell, who is familiar with the patient. This planned procedure was then discussed in great detail and to the patient and her 's understanding. The patient and her both agree to proceed with the operation at this time. All of the risks and potential complications were reviewed with the patient. She understands the importance of proper compliance following this procedure to optimize the potential for healing, but no guarantees were given. She is advised that the complications and risks include, but are not limited to, further infection, need for further surgeries, recurrence, transfer lesions, deformity, weakness, loss of strength, loss of function, further ulceration, nonhealing, delayed healing, blood clots, chronic swelling, arthritis, Charcot foot/ankle, nerve damage, inability to walk, inability to wear shoes, severe pain, complex regional pain syndrome, need for below the knee amputation, loss of complete limb, or loss of life. The alternative options were discussed with the patient as well as her . All their questions were answered to their satisfaction. It was then agreed to proceed forward with debridement of the ulcer as well as partial first ray amputation of the left foot. The consent form was reviewed with the patient and was freely signed. Again, no guarantees were given. Description of Procedure: The patient was brought back to the operating room and placed on the operating table in the supine position. The patient was given a dose of clindamycin preoperatively. The patient received MAC anesthesia per the anesthesiologist. A local anesthetic block was then performed consisting of 20 mL of 0.5% Marcaine plain. No tourniquet was used during this procedure, and hemostasis was obtained using anatomic dissection and local control. The left foot and ankle was then scrubbed prepped and draped in the usual aseptic manner. A timeout was performed and the patient was properly identified and the surgical plan was confirmed. Next attention was directed to the dorsal aspect of the left foot. Prior to debridement, a measurement was taken, and then the ulcer was shown to measure 9.3 cm x 7.7 cm x 0.3 cm. The entire hallux was gangrenous. Next, a [employer] versa jet was used on setting 8 for debridement of necrotic, nonviable, and infected soft tissue in the ulcer site. Again, the bleeding tissue was noted to be better to the proximal lateral aspects of the ulcer. Next, a #15 scalpel blade was used to carefully dissect and disarticulate the gangrenous hallux at the left first metatarsophalangeal joint, and passed from the operative table. Following removal of the hallux, dissection was carefully carried back freeing up the distal half of the first metatarsal. A sagittal saw was then used to carefully remove the first metatarsal head. Once the bone cut was made, a 15 blade was used to carefully dissect and remove the metatarsal head as well as both sesamoid bones. These were also passed from the operative table. Some of the bone and tissue from the left hallux and first metatarsal head was then sent to microbiology for aerobic, anaerobic, fungal, and acid-fast evaluation, and some of the bone and tissue was sent to pathology for further evaluation. The desiccated extensor hallucis tendon was then debrided as far proximally as possible using a #15 scalpel blade. Next, a clearance fragment was taken from the remaining distal aspect of the first metatarsal, and part of this was sent to microbiology for aerobic, anaerobic, fungal, and acid-fast evaluation, and some of the bone was also sent to pathology for evaluation. A small area of slight periosteal bone necrosis was appreciated to the proximal first metatarsal. This small area of bone necrosis was debrided using a combination of bone rongeur and curette. The remaining underlying bone appeared healthy. No purulence was appreciated during this procedure. Next, using a combination of a #15 scalpel blade, versa jet, and curette, the entire surgical site was again carefully debrided and all nonviable and necrotic tissue was removed. Upon completion, all of the necrotic and nonviable soft tissue and bone was removed, leaving behind healthy bleeding tissue and bone. The operative site was then flushed with copious amounts of normal sterile saline. The distal and medial tissue was mobilized as much as possible and used to cover as much of the first metatarsal as possible. This was held in place using 4 retention sutures using 2-0 Prolene. Post debridement measurement was taken and shown to be 12.2 cm x 8.3 cm x 0.4 cm. A dressing was then applied, consisting of Adaptic, saline soaked 4 x 4's, dry 4 x 4's, ABDs, and a Kerlix bandage. The patient tolerated the procedure and anesthesia well with no complications. Postoperative orders were placed electronically. Postoperative instructions were reviewed with the patient and the patient's in great detail. She was instructed to remain nonweightbearing to the left foot at all times. She is able to move short distances with assistance and heel weightbearing to the left foot. She will be readmitted to the floor. She was transferred to the recovery room with vital signs stable and in good condition. No complications took place during this procedure. She will continue to be followed as an inpatient.
[2017-08-27 17:46] LABS: Bedside Glucose 108 mg/dL (70-110)
[2017-08-27] MEDS: Enoxaparin 40 MG/0.4 ML Syringe SC (18:38)
[2017-08-27] MEDS: oxyCODONE 5 MG Tablet PO (21:43)
[2017-08-27] MEDS: Glucerna Shake 120 ML LIQUID PO (21:44)
[2017-08-27 21:51] LABS: Bedside Glucose 265 mg/dL (70-110)
[2017-08-28] MEDS: 0.9% Normal Saline 1,000 ML 50 ML IV (02:38)
[2017-08-28 04:23] VITALS: BP 142/85; PULSE 68; RESP 18; TEMP 36.7; O2SAT 96
[2017-08-28] MEDS: oxyCODONE 5 MG Tablet PO ×4 (04:44→23:18)
--- NOTE | 2017-08-28 06:56 | PCM.PROGNOTE ---
Patient Problems: Active and Suspected Problems Non-compliance (Acute) with medications and with follow up in the wound care clinic Gangrene associated with type 2 diabetes mellitus (Acute) Subjective: Patient was seen bedside this morning and was resting comfortably status post surgical debridement of left dorsal foot ulcer down to bone and partial first ray amputation. She states that she was feeling some pain over night, but was given some pain medication, and since then she has been resting comfortably. She denies any feelings of nausea, vomiting, fever, or chills at this time. - Physical Exam General: Alert, Oriented x3, Cooperative Extremities: No Calf Tenderness - Negative kathryn and rae sign, Diminished Peripheral Pulses - DP and PT pulses non palpable due to ulcer to dorsal left foot., Edema - some left lower extremity edema appreciated Skin: Ulcer/ Wound - Ulcer to dorsal left foot noted down to bone in surgery. Upon examination this morning, the base is still granular. The four retention sutures are still intact. No purulence appreciated. Some sanguinous drainage appreciated to dressing, but no striketrhough. No extending cellulitis surrounding the surgical site. No malodor. Ulcer noted to be 12.2 cm x 8.3 cm x 0.4 cm. Musculoskeletal: - - muscle strength not tested this morning to left lower extremity Neurological: - - protective sensation absent to greater than 2 of 5 pedal sites tested at random using a 5.07 semmes eileen monofilament Psych/Mental Status: Normal Affect, Appropriate Vital Signs Temp Pulse Resp BP Pulse Ox 98.1 F 68 18 142/85 H 96 08/28/17 04:23 08/28/17 04:23 08/28/17 04:23 08/28/17 04:23 08/28/17 04:23 Oxygen Delivery Method Room Air Weight: 88.8 kg Body Mass Index (BMI) 31.6 Finger Stick Blood Glucose 108 Intake and Output for Last 24 Hours 08/26/17 08/27/17 08/28/17 23:59 23:59 23:59 Intake Total 2080 / 2080 1530 / 1530 Output Total 500 / 500 300 / 300 Balance 1580 / 1580 1230 / 1230 POC Glucose 08/27/17 08/27/17 08/27/17 21:39 17:43 12:04 POC Glucose 265 H 108 129 H Assessment/Plan Active and Suspected Problems Non-compliance (Acute) with medications and with follow up in the wound care clinic Gangrene associated with type 2 diabetes mellitus (Acute) S/P Surgical debridement of chronic ulcer to left foot and partial left first ray amputation Patient was examined and evaluated this morning. No excessive bleeding was noted over night and there was no strike through to dressing. Patient pain controlled at this time. Microbiology and Patholoy results are still pending. The surgical site appears to be granular in nature at this time. Orders were placed for the wound nurse to please place a wound vac over the surgical site before the patient is discharged home, along with education on how the wound vac works. I spoke with the patient and her about this as well. Orders were also placed to coordinate home health care for wound vac changes twice a week. CBC with diff and CMP ordered this morning. Patient is to continue to be non weight bearing as much as possible to the left foot. If she has to move, she must have assistance and use heel touch weight bearing to the left foot. Once patient is discharged, she is to follow up in my office. I went over any questions or concerns with the patient and her in great detail this morning. Please contact me with any further questions or concerns.
[2017-08-28 07:01] LABS: Bedside Glucose 146 mg/dL (70-110)
[2017-08-28 07:35] VITALS: BP 142/69; PULSE 94; RESP 18; TEMP 37.4; O2SAT 94
[2017-08-28] MEDS: Ascorbic Acid 500 MG Tablet PO (07:46)
[2017-08-28] MEDS: Lisinopril 10 MG Tablet PO ×2 (07:46→21:28)
[2017-08-28] MEDS: Multivitamins,Therapeutic Tablet 1 TABLET PO (07:46)
[2017-08-28 08:05] LABS: Absolute Lymphocyte Count 1.47 X10^3/ul (0.83-4.51); Absolute Neutrophil Count 5.5 X10^3/uL (2.0-7.7); Basophil# 0.02 X10^3/uL; Basophil% 0.3 % (0-1); Eosinophil# 0.06 X10^3/uL; Eosinophils% 0.8 % (0-5); Hematocrit 36.8 % (37-47); Hemoglobin 12.1 g/dl (12.0-15.0); Lymphocyte # 1.47 X10^3/ul (4.0); Lymphocyte % 18.6 % (19-41); Mean Corp Hgb Conc 32.9 g/gl (32-36); Mean Corpuscular Hgb 27.8 pg (27.0-32.0); Mean Corpuscular Volume 84.4 fL (81-99); Mean Platelet Vol. 8.9 fl (6.2-12.0); Monocyte# 0.83 X10^3/uL; Monocyte% 10.5 % (0-10); Neutrophil # 5.51 X10^3/uL (2.7-7.7); Neutrophil % 69.7 % (47-70); Platelet Count 214 K/mm3 (150-450); RBC Distribution Width CV 15.9 % (11.6-14.6); RBC Distribution Width SD 49.1 fl (35.1-43.9); Red Blood Count 4.36 M/mm3 (4.2-5.4); White Blood Count 7.9 K/mm3 (4.4-11.0)
[2017-08-28 08:06] LABS: POSITIVE COUNT NO; POSITIVE DIFFERENTIAL NO; POSITIVE MORPHOLOGY NO
[2017-08-28 08:23] LABS: ALB/GLOB Ratio 0.9 RATIO (0.9-2.4); AST(SGOT) 13 U/L (15-37); Alanine Aminotransfer ALT/SGPT 20 U/L (12-78); Albumin, Serum 2.9 g/dL (3.4-5.0); Alkaline Phosphatase 69 U/L (45-117); Anion Gap 8 (5-15); BUN 10 mg/dL (7-18); BUN/Creat Ratio 22.7 RATIO (10-20); Calcium,Total 8.3 mg/dL (8.5-10.1); Chloride 106 mmol/L (98-107); Creatinine, Serum 0.44 mg/dL (0.55-1.02); EST Glomerular Filtration Rate 154 mL/min (>60); Est Glom Filt Rate - Afr Amer 186 mL/min (>60); Globulin 3.3 g/dL (2.2-4.2); Glucose 129 mg/dL (70-110); Potassium 3.9 mmol/L (3.5-5.1); Protein, Total 6.2 g/dL (6.4-8.2); Sodium Level 139 mmol/L (136-145)
[2017-08-28] MEDS: Glucerna Shake 120 ML LIQUID PO ×4 (10:35→21:28)
[2017-08-28 11:21] LABS: Bedside Glucose 235 mg/dL (70-110)
[2017-08-28 12:00] VITALS: BP 127/63; PULSE 98; RESP 18; TEMP 37.3
--- NOTE | 2017-08-28 12:54 | CASEMGMT ---
RN CELESTINE and wound nurse discussing discharge plans with patient and spouse. Doctor had ordered wound vac for patient and wound nurse discussing if they would be able to charge the wound vac. Patient and spouse state that they do not have electricity or access to be able to charge wound vac unit twice daily. Wound nurse discussed she would update doctor regarding wound care. Patient and stated that they would like home health to assist with wound care. SEKOU SPRAGUE called [facility] for pricing which patient had at her last discharge to home. SEKOU SPRAGUE also called [facility] for pricing. RN CM updated patient and spouse regarding pricing and picked [facility]. Referral made to [facility] and they would be able to see the patient Saturday09/03/17. Patient and stated they were ok with start of care date. Patient states that her daughter will be assisting with dressing changes at home. RN CELESTINE and wound nurse discussed having daughter come to [facility] in am to teach how to complete wound care. Patient and stated they would arrange for daughter to come to hospital. SEKOU SPRAGUE will continue to follow this patient and plan for a safe discharge.
--- NOTE | 2017-08-28 15:38 | NURSING ---
wound photo: left foot
[2017-08-28 16:21] LABS: Bedside Glucose 189 mg/dL (70-110)
--- NOTE | 2017-08-28 18:41 | PCM.PN.BLA ---
Progress Note Postoperative day #1 All events the past 24 hours of been reviewed. She has been afebrile and vital signs are stable. She is 94-96% saturated on room air. Blood pressures are better with restarting lisinopril. White blood cell count is normal at 7.9 with a normal differential. Hemoglobin and platelets are within normal limits. BMP is unremarkable. Hemoglobin A1c is 6.4 on no medication. She tells me that when she ran out of Plavix and lisinopril she thought she was done and did not request refills from her PCP. She states her pain is adequately controlled. She feels rather sleepy. She denies any nausea. Alert and oriented ?3, no apparent distress Lungs-clear to auscultation Heart-regular rate and rhythm, no murmur, no gallop, no rub, no ectopics Abdomen-obese, soft, nontender, nondistended, normal bowel sounds The amputation site is clean and the incision margins are well coapted no purulent discharge, no odor, good granulation tissue present no evidence of cellulitis. Impressions 1. Dry gangrene left hallux -postop day #1-status post amputation of the great toe 2. Nonhealing ulceration on the dorsum of the left foot 3. Peripheral vascular disease-status post stent to the left popliteal artery and balloon angioplasty of the tibial artery in Jul [address] Cm 4. Diabetes mellitus type 2 -well controlled with diet alone 5. Hypertension - better with the restart of the ALYSE. I did tell her that she should stay on this medication and will need to get refills from Dr. Mercado. 6. Obesity 7. Diabetic peripheral polyneuropathy Restart Plavix for PVD and to help keep the stents open in the LLE DC tomorrow' Dtr will be doing the dressing changes at home ....they have no electricity so can not send with a wound vac. Code Visit Inpatient E&M: 00706 Subs Hosp L1
[2017-08-28 19:50] VITALS: BP 166/64; PULSE 89; RESP 16; TEMP 38; O2SAT 96
[2017-08-28 22:01] LABS: Bedside Glucose 151 mg/dL (70-110)
[2017-08-28] MEDS: Acetaminophen 325 MG Tablet 650 MG PO (23:17)
[2017-08-29 01:37] VITALS: BP 148/72; PULSE 75; RESP 16; TEMP 37.1; O2SAT 96
--- NOTE | 2017-08-29 06:36 | PCM.DC ---
- Discharge Diagnoses Current Active Problems: Current Active and Chronic Problems Chronic ulcer of left foot with necrosis of bone (Chronic) Gangrene of left foot (Chronic) Gangrene of left foot (Chronic) Non-compliance (Acute) with medications and with follow up in the wound care clinic Obesity (BMI 30.0-34.9) (Chronic) Gangrene associated with type 2 diabetes mellitus (Acute) Chronic ulcer of left foot with necrosis of muscle (Chronic) Peripheral vascular disease (Chronic) Diabetes mellitus with neuropathy (Chronic) You will use the following diet at home:: Calorie/Carbohydrate Controlled (specify 1200, 1400, etc), Cardiac - low fat and low salt Your food should be the consistency of: Regular Your liquids should be the consistency of: Regular/Thin Weight Bearing Status: Partial weight bearing Keep extremity elevated above heart level: Left Leg Call your doctor if your incision/area has: Continuous Slow Oozing, Sudden Increased Bleeding, Increased Pain/ Swelling, Increased Redness, Foul Smelling Discharge, Swelling at the incision site Call your doctor if you observe: Fever of 101 or Higher, Shortness of breath, Dizziness, Fainting spells, Chest pain Additional Instructions: 1. You have high blood pressure and I have given you a prescription for a medication called Lisinopril to control your blood pressure. I am only allowed to give you a prescription for 1 month of medication since I am not your PCP. You will need to get a prescription from Dr. Mercado for refills. 2. I have also given you a prescription for a medication called Plavix to help keep the stents in the arteries of the left leg open. 3. Elevate your Left leg when sitting to help keep the swelling down. 4. Rony is a drink that you will do twice daily at home......this provides valuable protein to help heal the wound. Pending Tests on Discharge: cultures from the left foot done at the time of the surgery Allergies/Adverse Reactions: Allergies cephalexin [From Keflex] Allergy (Verified 08/01/17 10:34) Rash morphine Allergy (Verified 08/01/17 10:34) Unknown Medications to take at Discharge Ascorbic Acid [Vitamin C] 500 mg PO DAILY@0800 08/26/17 Multivitamins,Therapeutic [Multivitamin] 1 tablet PO DAILY 08/26/17 Acetaminophen [Tylenol Tablet] 650 mg PO Q6H PRN PRN tablet 08/29/17 Clopidogrel Bisulfate [Plavix] 75 mg PO DAILY #30 tab 08/29/17 Lisinopril 20 mg PO DAILY #30 tab 08/29/17 Nutritional Supplement [Rony - ORANGE FLAVOR] 1 packet PO BIDCM #60 packet 08/29/17 Oxycodone HCl/Acetaminophen [Percocet 5/325] 1 - 2 tab PO Q6H PRN PRN #30 tab 08/29/17 The following prescriptions were given: Oxycodone HCl/Acetaminophen [Percocet 5/325] 1 - 2 tab PO Q6H PRN PRN #30 tab PRN Reason: Pain Clopidogrel Bisulfate [Plavix] 75 mg PO DAILY #30 tab Lisinopril 20 mg PO DAILY #30 tab Nutritional Supplement [Rony - ORANGE FLAVOR] 1 packet PO BIDCM #60 packet Primary Care Physician: Rinku Mercado MD [Primary Care Provider] - Please follow up with your Primary Care Physician in: 10 days to get the BP checked Please Follow Up With: Juan Aguillon DPM When: 1 week in the office
[2017-08-29 06:46] LABS: Bedside Glucose 125 mg/dL (70-110)
--- NOTE | 2017-08-29 06:48 | DCINST_ITS ---
- Discharge Diagnoses Current Active Problems: Current Active and Chronic Problems Chronic ulcer of left foot with necrosis of bone (Chronic) Gangrene of left foot (Chronic) Gangrene of left foot (Chronic) Non-compliance (Acute) with medications and with follow up in the wound care clinic Obesity (BMI 30.0-34.9) (Chronic) Gangrene associated with type 2 diabetes mellitus (Acute) Chronic ulcer of left foot with necrosis of muscle (Chronic) Peripheral vascular disease (Chronic) Diabetes mellitus with neuropathy (Chronic) You will use the following diet at home:: Calorie/Carbohydrate Controlled ( specify 1200, 1400, etc), Cardiac - low fat and low salt Your food should be the consistency of: Regular Your liquids should be the consistency of: Regular/Thin Weight Bearing Status: Partial weight bearing Keep extremity elevated above heart level: Left Leg Call your doctor if your incision/area has: Continuous Slow Oozing, Sudden Increased Bleeding, Increased Pain/ Swelling, Increased Redness, Foul Smelling Discharge, Swelling at the incision site Call your doctor if you observe: Fever of 101 or Higher, Shortness of breath, Dizziness, Fainting spells, Chest pain Additional Instructions: 1. You have high blood pressure and I have given you a prescription for a medication called Lisinopril to control your blood pressure. I am only allowed to give you a prescription for 1 month of medication since I am not your PCP. You will need to get a prescription from Dr. Mercado for refills. 2. I have also given you a prescription for a medication called Plavix to help keep the stents in the arteries of the left leg open. 3. Elevate your Left leg when sitting to help keep the swelling down. 4. Rony is a drink that you will do twice daily at home......this provides valuable protein to help heal the wound. Pending Tests on Discharge: cultures from the left foot done at the time of the surgery Allergies/Adverse Reactions: Allergies cephalexin [From Keflex] Allergy (Verified 08/01/17 10:34) Rash morphine Allergy (Verified 08/01/17 10:34) Unknown Medications to take at Discharge Ascorbic Acid [Vitamin C] 500 mg PO DAILY@0800 08/26/17 Multivitamins,Therapeutic [Multivitamin] 1 tablet PO DAILY 08/26/17 Acetaminophen [Tylenol Tablet] 650 mg PO Q6H PRN PRN tablet 08/29/17 Clopidogrel Bisulfate [Plavix] 75 mg PO DAILY #30 tab 08/29/17 Lisinopril 20 mg PO DAILY #30 tab 08/29/17 Nutritional Supplement [Rony - ORANGE FLAVOR] 1 packet PO BIDCM #60 packet Oxycodone HCl/Acetaminophen [Percocet 5/325] 1 - 2 tab PO Q6H PRN PRN #30 tab The following prescriptions were given: Oxycodone HCl/Acetaminophen [Percocet 5/325] 1 - 2 tab PO Q6H PRN PRN #30 tab PRN Reason: Pain Clopidogrel Bisulfate [Plavix] 75 mg PO DAILY #30 tab Lisinopril 20 mg PO DAILY #30 tab Nutritional Supplement [Rony - ORANGE FLAVOR] 1 packet PO BIDCM #60 packet Primary Care Physician: Rinku Mercado MD [Primary Care Provider] - Please follow up with your Primary Care Physician in: 10 days to get the BP checked Please Follow Up With: Juan Aguillon DPM When: 1 week in the office
[2017-08-29 08:55] VITALS: BP 128/68; PULSE 80; RESP 16; TEMP 36.7; O2SAT 97
[2017-08-29] MEDS: Ascorbic Acid 500 MG Tablet PO (08:55)
[2017-08-29] MEDS: Multivitamins,Therapeutic Tablet 1 TABLET PO (08:55)
[2017-08-29] MEDS: Lisinopril 10 MG Tablet PO (08:56)
[2017-08-29] MEDS: Clopidogrel Bisulfate 75 MG Tablet PO (08:56)
[2017-08-29] MEDS: Glucerna Shake 120 ML LIQUID PO (08:58)
[2017-08-29] MEDS: Acetaminophen 325 MG Tablet 650 MG PO (09:02)
--- NOTE | 2017-08-29 09:42 | PCM.DC.SUM ---
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 Electronically Signed: Tj Campbell MD at 19:53 EST , Service support , Foot X-Ray 08/27/17 16:54 IMPRESSION: Postsurgical changes status post amputation of the great toe through the proximal metatarsal Electronically Signed: Luis Germain MD at 17:47 EST , Service support , Laboratory Results - last 24 hr 08/28/17 08/28/17 08/28/17 11:10 16:12 21:26 POC Glucose 235 H 189 H 151 H 08/29/17 06:15 POC Glucose 125 H Microbiology 08/27/17 Unknown Tissue - Left Foot Gram Stain - Final 08/27/17 Unknown Tissue - Left Foot Wound Culture - Preliminary Gram positive organism 08/27/17 Unknown Tissue - Left Foot Anaerobic Culture - Preliminary No growth in 48 hours. 08/27/17 Unknown Tissue - Left Foot Gram Stain - Final 08/27/17 Unknown Tissue - Left Foot Wound Culture - Preliminary Gram positive organism 08/27/17 Unknown Tissue - Left Foot Anaerobic Culture - Preliminary No growth in 48 hours. Consultations 08/26/17 15:31 Consult: Onc/Wound/genetic supervisor Routine Comment: Dr. Juan Aguillon-podiatry Operations: - - Debridement of left foot with amputation of the great toe and a partial first ray amputation by Dr. Aguillon on 08/27/2017. Procedures: None Summary of Care Provided: The patient is a 62 year old F with a past medical history of hypertension, diabetes mellitus type 2, diabetic peripheral polyneuropathy, peripheral vascular disease and obesity who is well known to me from a recent admission to [facility] in early July 2017 for wet gangrene of the left lower extremity associated with diabetes mellitus type 2 and peripheral vascular disease. She had a stent placed in the left mid popliteal artery and a balloon angioplasty of the mid left anterior tibial artery. At that admission she also had extensive debridement by podiatry of the dorsum of the left foot. She was discharged home on Levaquin/Flagyl, metformin, lisinopril and Plavix however, her med reconciliation at admission listed only a multivitamin daily and vitamin C. She quit taking the medications when she no longer had any pills. She did not attempt to refill the prescriptions for Plavix and lisinopril with Dr. Mercado. She was seen in the office by Dr. Aguillon on 08/26/2017 and sent to the hospital for debridement of the wound on the dorsum of the foot and amputation of the Left Hallux. Surgery was performed on 08/27/2017. She was restarted on lisinopril 20 mg daily and also Plavix 75 mg daily to keep the stent in the left lower extremity patent. On 08/29/2017 she was afebrile with stable vital signs. Blood pressure improved significantly with reinstitution of lisinopril. Hemoglobin A1c was 6.4 and she is diet controlled. Final wound cultures are pending at the time of discharge but the preliminary is a very rare growth of a gram-positive organism.....which per the laboratory equipment cleaner looks like a coag neg Staph. She had a low-grade temp to 100.4 at 8 PM on 117 but the following morning her temperature was 98.7. White blood cell count on 08/28/2017 was 7.9 with an unremarkable differential. She was discharged home and her daughter will be doing her dressings daily. Sheila Maravilla from wound care instructed her daughter in proper application of the dressings. She will have home health at home. She will follow-up with Dr. Aguillon in the office in 1 week. She was given prescriptions for Plavix 75 mg, lisinopril 20 mg and Rony 1 twice daily. We will continue ascorbic acid and a multivitamin. She was instructed to follow-up with Dr. Rinku Mercado in the office in 10-14 days and was told that going forward she will need to continue the antihypertensive medication and Plavix. She was instructed to get refills for these prescriptions from Dr. Mercado. At the time of the first admission she was complaining of exertional CP. She had a nuclear stress that was equivocal. If she has recurrent CP would refer to cardiology to be considered for a cardiac catheterization. This note was generated with [email or web address] dictation software. It may contain incorrect words, spelling, and punctuation that were not noted in checking the note before signing. Weight Bearing Status: Partial weight bearing Keep extremity elevated above heart level: Left Leg Call your doctor if your incision/area has: Continuous Slow Oozing, Sudden Increased Bleeding, Increased Pain/ Swelling, Increased Redness, Foul Smelling Discharge, Swelling at the incision site Call your doctor if you observe: Fever of 101 or Higher, Shortness of breath, Dizziness, Fainting spells, Chest pain Home Medications: Medications to take at Discharge Ascorbic Acid [Vitamin C] 500 mg PO DAILY@0800 08/26/17 Multivitamins,Therapeutic [Multivitamin] 1 tablet PO DAILY 08/26/17 Acetaminophen [Tylenol Tablet] 650 mg PO Q6H PRN PRN tablet 08/29/17 Clopidogrel Bisulfate [Plavix] 75 mg PO DAILY #30 tab 08/29/17 Lisinopril 20 mg PO DAILY #30 tab 08/29/17 Nutritional Supplement [Rony - ORANGE FLAVOR] 1 packet PO BIDCM #60 packet 08/29/17 Oxycodone HCl/Acetaminophen [Percocet 5/325] 1 - 2 tab PO Q6H PRN PRN #30 tab 08/29/17 Following Prescrptions Were Given to Patient: Oxycodone HCl/Acetaminophen [Percocet 5/325] 1 - 2 tab PO Q6H PRN PRN #30 tab PRN Reason: Pain Clopidogrel Bisulfate [Plavix] 75 mg PO DAILY #30 tab Lisinopril 20 mg PO DAILY #30 tab Nutritional Supplement [Rony - ORANGE FLAVOR] 1 packet PO BIDCM #60 packet Primary Care Physician: Rinku Mercado MD [Primary Care Provider] - Please follow up with your Primary Care Physician in: 10 days to get the BP checked Please Follow Up With: Juan Aguillon DPM When: 1 week in the office Meaningful Use Info Meaningful Use Diagnoses (Choose all that apply): None applicable Code Visit Inpatient E&M: 75482 Disch Hosp
--- NOTE | 2017-08-29 10:04 | DS.PCM_ITS ---
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 Electronically Signed: Tj Campbell MD at 19:53 EST , Service support , Foot X-Ray 08/27/17 16:54 IMPRESSION: Postsurgical changes status post amputation of the great toe through the proximal metatarsal Electronically Signed: Luis Germain MD at 17:47 EST , Service support , Laboratory Results - last 24 hr 08/28/17 08/28/17 08/28/17 11:10 16:12 21:26 POC Glucose 235 H 189 H 151 H 08/29/17 06:15 POC Glucose 125 H Microbiology 08/27/17 Unknown Tissue - Left Foot Gram Stain - Final 08/27/17 Unknown Tissue - Left Foot Wound Culture - Preliminary Gram positive organism 08/27/17 Unknown Tissue - Left Foot Anaerobic Culture - Preliminary No growth in 48 hours. 08/27/17 Unknown Tissue - Left Foot Gram Stain - Final 08/27/17 Unknown Tissue - Left Foot Wound Culture - Preliminary Gram positive organism 08/27/17 Unknown Tissue - Left Foot Anaerobic Culture - Preliminary No growth in 48 hours. Consultations 08/26/17 15:31 Consult: Onc/Wound/paper tube cutter Routine Comment: Dr. Juan Aguillon-podiatry Operations: - - Debridement of left foot with amputation of the great toe and a partial first ray amputation by Dr. Aguillon on 08/27/2017. Procedures: None Summary of Care Provided: The patient is a 62 year old F with a past medical history of hypertension , diabetes mellitus type 2, diabetic peripheral polyneuropathy, peripheral vascular disease and obesity who is well known to me from a recent admission to [facility] in early July 2017 for wet gangrene of the left lower extremity associated with diabetes mellitus type 2 and peripheral vascular disease. She had a stent placed in the left mid popliteal artery and a balloon angioplasty of the mid left anterior tibial artery. At that admission she also had extensive debridement by podiatry of the dorsum of the left foot. She was discharged home on Levaquin/Flagyl, metformin, lisinopril and Plavix however, her med reconciliation at admission listed only a multivitamin daily and vitamin C. She quit taking the medications when she no longer had any pills. She did not attempt to refill the prescriptions for Plavix and lisinopril with Dr. Mercado. She was seen in the office by Dr. Aguillon on 08/26/2017 and sent to the hospital for debridement of the wound on the dorsum of the foot and amputation of the Left Hallux. Surgery was performed on 08/27/2017. She was restarted on lisinopril 20 mg daily and also Plavix 75 mg daily to keep the stent in the left lower extremity patent. On 08/29/2017 she was afebrile with stable vital signs. Blood pressure improved significantly with reinstitution of lisinopril. Hemoglobin A1c was 6.4 and she is diet controlled. Final wound cultures are pending at the time of discharge but the preliminary is a very rare growth of a gram-positive organism.....which per the dental laboratory technician apprentice looks like a coag neg Staph. She had a low-grade temp to 100.4 at 8 PM on 117 but the following morning her temperature was 98.7. White blood cell count on 08/28/2017 was 7.9 with an unremarkable differential. She was discharged home and her daughter will be doing her dressings daily. Sheila Maravilla from wound care instructed her daughter in proper application of the dressings. She will have home health at home. She will follow-up with Dr. Aguillon in the office in 1 week. She was given prescriptions for Plavix 75 mg, lisinopril 20 mg and Rony 1 twice daily. We will continue ascorbic acid and a multivitamin. She was instructed to follow-up with Dr. Rinku Mercado in the office in 10-14 days and was told that going forward she will need to continue the antihypertensive medication and Plavix. She was instructed to get refills for these prescriptions from Dr. Mercado. At the time of the first admission she was complaining of exertional CP. She had a nuclear stress that was equivocal. If she has recurrent CP would refer to cardiology to be considered for a cardiac catheterization. This note was generated with [employer] dictation software. It may contain incorrect words, spelling, and punctuation that were not noted in checking the note before signing. Weight Bearing Status: Partial weight bearing Keep extremity elevated above heart level: Left Leg Call your doctor if your incision/area has: Continuous Slow Oozing, Sudden Increased Bleeding, Increased Pain/ Swelling, Increased Redness, Foul Smelling Discharge, Swelling at the incision site Call your doctor if you observe: Fever of 101 or Higher, Shortness of breath, Dizziness, Fainting spells, Chest pain Home Medications: Medications to take at Discharge Ascorbic Acid [Vitamin C] 500 mg PO DAILY@0800 08/26/17 Multivitamins,Therapeutic [Multivitamin] 1 tablet PO DAILY 08/26/17 Acetaminophen [Tylenol Tablet] 650 mg PO Q6H PRN PRN tablet 08/29/17 Clopidogrel Bisulfate [Plavix] 75 mg PO DAILY #30 tab 08/29/17 Lisinopril 20 mg PO DAILY #30 tab 08/29/17 Nutritional Supplement [Rony - ORANGE FLAVOR] 1 packet PO BIDCM #60 packet Oxycodone HCl/Acetaminophen [Percocet 5/325] 1 - 2 tab PO Q6H PRN PRN #30 tab Following Prescrptions Were Given to Patient: Oxycodone HCl/Acetaminophen [Percocet 5/325] 1 - 2 tab PO Q6H PRN PRN #30 tab PRN Reason: Pain Clopidogrel Bisulfate [Plavix] 75 mg PO DAILY #30 tab Lisinopril 20 mg PO DAILY #30 tab Nutritional Supplement [Rony - ORANGE FLAVOR] 1 packet PO BIDCM #60 packet Primary Care Physician: Rinku Mercado MD [Primary Care Provider] - Please follow up with your Primary Care Physician in: 10 days to get the BP checked Please Follow Up With: Juan Aguillon DPM When: 1 week in the office Meaningful Use Info Meaningful Use Diagnoses (Choose all that apply): None applicable Code Visit Inpatient E&M: 07365 Disch Hosp
[2017-08-29 11:20] VITALS: BP 155/68; PULSE 80; RESP 16; TEMP 36.7; O2SAT 98
== END 2017-08-29 11:34 | disposition home or self-care (01) | DRG 240 ==
PROVIDERS: Admitting Provider Internal Medicine; Family Provider Family Medicine; PCP Family Medicine; Visit Provider Podiatrist
PROC: 0Y6N0Z9 Detachment at Left Foot, Partial 1st Ray, Open Approach (ICD-10-PCS; principal; 2017-08-27 14:45)
DX: E11.52 Type 2 diabetes mellitus with diabetic peripheral angiopathy with gangrene (principal); E11.42 Type 2 diabetes mellitus with diabetic polyneuropathy; I96 Gangrene, not elsewhere classified; E11.621 Type 2 diabetes mellitus with foot ulcer; E66.9 Obesity, unspecified; I10 Essential (primary) hypertension; L97.524 Non-pressure chronic ulcer of other part of left foot with necrosis of bone; Z68.31 Body mass index [BMI] 31.0-31.9, adult; Z91.19 Patient's noncompliance with other medical treatment and regimen
CPT/HCPCS: 36415; 73620; 73630; 76000; 80053; 82962; 83036; 83735; 85025; 85652; 86140; 87015; 87070; 87075; 87077; 87102; 87106; 87116; 87186; 87205; 87206; 88304; 88305; 88311; 88312; 93005; 97802; J7030; A4216; J2405

== ENCOUNTER → 2023-06-05 | Outpatient (CLI) | payer OTHER, SELFPAY | END | disposition home or self-care (01) | PROVIDERS: PCP Family Medicine; Visit Provider Physician Assistant Surgical | DX: L03.116 Cellulitis of left lower limb (principal) | CPT/HCPCS: 87070; 87077; 87186; 87205 ==

== ENCOUNTER 2024-11-03 15:19 | Observation (INO) | payer OTHER, SELFPAY ==
[2024-11-03] VITALS (9 sets, daily range): BP systolic 127–160; BP diastolic 62–83; PULSE 74–87; RESP 15–18; TEMP 36.4–36.9; O2SAT 96–100; BMI 35.8
--- NOTE | 2024-11-03 07:38 | ECHOD_ITS ---
Reason For Study Reason For Study: CHEST PAIN Procedure This was a 2D Doppler, Color Flow transthoracic echocardiogram. The study was technically difficult. Exam performed in department. Left Ventricle Normal LV size. Moderate concentric left ventricular hypertrophy. Apical hypertrophic cardiomyopathy cannot be completely excluded. The left ventricular ejection fraction is 70 %. No regional wall motion abnormalities noted. Right Ventricle Normal RV size. Normal systolic function. Mitral Valve There is mild mitral annular calcification. Tricuspid Valve Normal tricuspid valve. Aortic Valve Trisinus/trileaflet aortic valve. Pulmonic Valve Normal pulmonic valve. Great Vessels Normal aortic root. The pulmonary artery is normal size. Inferior vena cava collapse with respiration. Pericardium/Pleural No pericardial effusion. MMode/2D Measurements & Calculations LVIDd: 4.2 cm IVSd: 1.4 cm LAV(MOD-bp): 48.1 ml LVIDs: 2.9 cm LVPWd: 1.4 cm LAV(MOD-sp2): 48.4 ml RVDd: 2.5 cm FS: 30.8 % LAV(MOD-sp4): 48.1 ml LVAd ap4: 22.4 cm2 LVAd ap2: 15.6 cm2 SV(MOD-sp4): 34.6 ml LVLd ap4: 7.9 cm LVLd ap2: 7.2 cm EDV(MOD-sp4): 57.0 ml EDV(MOD-sp2): 30.2 ml EDV(sp4-el): 53.9 ml EDV(sp2-el): 28.8 ml LVAs ap4: 11.8 cm2 LVAs ap2: 8.5 cm2 LVLs ap4: 5.9 cm LVLs ap2: 5.8 cm ESV(MOD-sp4): 22.5 ml ESV(MOD-sp2): 11.4 ml ESV(sp4-el): 20.1 ml ESV(sp2-el): 10.6 ml EF(MOD-sp4): 60.6 % EF(MOD-sp2): 62.4 % EF(sp4-el): 62.7 % SV(MOD-sp2): 18.9 ml SV(sp4-el): 33.8 ml LA A4 area: 17.2 cm2 RA A4 area: 11.9 cm2 TAPSE: 2.4 cm Time Measurements MV dec time: 0.12 sec Doppler Measurements & Calculations MV E max joana: 95.9 cm/sec MV V2 max: 119.7 cm/sec MV P1/2t max joana: 128.3 cm/sec MV A max joana: 46.8 cm/sec MV max P.7 mmHg MV P1/2t: 37.9 msec MV E/A: 2.0 MV V2 mean: 57.1 cm/sec MV mean P.6 mmHg MV dec slope: 992.2 cm/sec2 MV V2 VTI: 20.4 cm MVA(P1/2t): 5.8 cm2 Ao V2 max: 192.4 cm/sec LV V1 max: 80.0 cm/sec PA V2 max: 104.6 cm/sec Ao max P.8 mmHg LV V1 max P.6 mmHg Ao V2 mean: 123.0 cm/sec LV V1 mean P.3 mmHg Ao mean P.9 mmHg LV V1 mean: 54.4 cm/sec Ao V2 VTI: 32.1 cm LV V1 VTI: 14.7 cm AV (velocity ratio): 0.46 ECHO/Echo Complete Interpretation Summary Normal LV size. Moderate concentric left ventricular hypertrophy. The left ventricular ejection fraction is 70 %. Apical hypertrophic cardiomyopathy cannot be completely excluded. Ordering Physician: Teresa Millan Referring Physician: Teresa Millan Performed By: Estela Ritchie, SHAKIR, RVT
[2024-11-03 10:28] LABS: Absolute Lymphocyte Count 1.27 X10^3/uL (0.83-4.51); Absolute Neutrophil Count 5.9 X10^3/uL (2.0-7.7); Basophil# 0.05 X10^3/uL; Basophil% 0.6 % (0-1); Eosinophil# 0.08 X10^3/uL; Hematocrit 39.2 % (37-47); Hemoglobin 13.8 g/dL (12.0-15.0); Lymphocyte # 1.27 X10^3/ul (0.83-4.51); Lymphocyte % 15.8 % (19-41); Mean Corp Hgb Conc 35.2 g/dL (32-36); Mean Corpuscular Hgb 29.8 pg (27.0-32.0); Mean Corpuscular Volume 84.7 fL (81-99); Mean Platelet Vol. 10.1 fl (6.2-12.0); Monocyte# 0.72 X10^3/uL; NRBC Flagged by Analyzer 0 % (0-5); Neutrophil # 5.87 X10^3/uL (2.7-7.7); Neutrophil % 73.2 % (47-70); Platelet Count 208 K/mm3 (150-450); RBC Distribution Width CV 12.8 % (11.6-14.6); RBC Distribution Width SD 39.1 fl (35.1-43.9); Red Blood Count 4.63 M/mm3 (4.2-5.4)
--- NOTE | 2024-11-03 10:46 | STRESSREP_ITS ---
Stress Test Report Pharmacologic myocardial perfusion stress test. 69-year-old lady with a history of chest pain Resting EKG demonstrates sinus rhythm with a right bundle branch block with a rate of 88 bpm. Resting blood pressure is 170/110 mmHg. 0.4 mg of regadenoson was infused per usual protocol followed by rapid intravenous saline flush injection. Continuous EKG monitoring was performed. The maximum heart rate was 117 bpm which was 77% of max impacted heart rate the maximum workload was 1 metabolic equivalent. At rest there were no ST or T wave changes noted to suggest ischemia and at peak infusion nonspecific ST changes were noted which did not meet the criteria for ischemia. Patient did develop significant hypertension as well as chest discomfort described as a heaviness which responded to sublingual nitroglycerin tablets x 3. The final blood pressure was 140/78 mmHg. Myocardial perfusion protocol. 15 mCi of technetium 99m sestamibi was injected at rest. 0.4 mg of regadenoson was infused per usual protocol. At peak infusion 45 mCi of technetium 99m sestamibi was injected stress images were obtained stress and rest images were r econstructed and compared in the short axis vertical long and horizontal long axis. Gated images were also obtained. Perfusion SPECT analysis: Review of the stress images demonstrate normal uptake of tracer noted in all areas of the myocardium except for the proximal anterior wall extending all the way to the apex with a large perfusion defect. The resting images demonstrated near normalization of the above suggesting severe ischemia involving the anterior wall towards the apex. It also included the apex. The inferior wall appeared to have normal perfusion. There was mild transient ischemic dilatation noted. Gated SPECT analysis: The gated ejection fraction is 48%. Conclusion: Markedly abnormal pharmacologic myocardial perfusion stress test. Anterior ischemia present Borderline ejection fraction.
--- NOTE | 2024-11-03 10:56 | CON.PCM.CA_ITS ---
Assessment & Plan Assessment/Plan (1) Chest pain: PLAN: She does present with stress induced chest discomfort which is fairly typical for angina. My recommendation at this time is for us to investigate the above with a cardiac catheterization. Depending on the findings further recommendations will be made. (2) Abnormal cardiovascular stress test: PLAN: She does have a markedly abnormal stress test. She will undergo a cardiac catheterization and we will evaluate the results of the above test. Further recommendations will be made. (3) Hypertension: PLAN: She does have a history of hypertension she will continue with the ALYSE inhibitor at this time. I will also recommend that we put her on a beta- pennie. Thank you for allowing me to participate in the care of your patient. Please don't hesitate to call if any issues arise. (4) Diabetes mellitus: QUALIFIERS: Diabetes mellitus type: type 2 Diabetes mellitus complication detail: with polyneuropathy PLAN: She does appear to have diabetes mellitus. I do not think that she is appropriately treated for the above. I will consult the hospitalist for help in management. HPI Consult Data Date of Consult: 11/03/24 HPI Narrative HPI Narrative: CLAYTON ALVAREZ, is a 69 F who presents for a stress test. She apparently has been complaining of chest discomfort described as a heaviness on her chest which appears to occur when she is anxious. She takes her anxiety pills and this calms her down. She does have a history of hypertension, diabetes mellitus, obesity, and her lipid status is not known. She presented for stress test today and developed chest discomfort in the middle of the stress test with marked elevation of her blood pressure. EKG changes were noted and I was called to evaluate her. She was given sublingual nitroglycerin which improved her symptomatology. Nuclear images demonstrated a markedly abnormal stress test with anterior ischemia and she was admitted directly to the cardiac catheterization lab for further workup. At this particular time she is free of any chest discomfort. She is difficult to get a good history out of in terms of her level of exertion. [facility] Home Medications ?Medication ?Instructions ?Recorded ?Last Taken ?Type glimepiride 4 mg tablet 4 mg PO DAILY 11/03/2411/02 History hydroxyzine HCl 25 mg tablet 25 mg PO TID PRN anxiety 11/03/24 Unknown History lisinopril 20 mg tablet 20 mg PO DAILY 11/03/2410/11 History Allergy/AdvReac Type Severity Reaction Status Date / Time cephalexin (From Keflex) Allergy Rash Verified 06/05/23 12:05 morphine Allergy Unknown Verified 06/05/23 12:05 Social History Smoking Status: Never smoker ROS Constitutional Constitutional: Denies fever(s) or weight loss Eyes Eyes: Reports systems reviewed and no addt'l complaints, except as documented ENT HEENT: Reports systems reviewed and no addt'l complaints, except as documented Cardiovascular Cardiovascular: Reports chest pain, chest pain at rest, chest pain with activity and dyspnea on exertion; Denies dyspnea at rest, edema, palpitations or paroxysmal nocturnal dyspnea Respiratory/Chest Respiratory/Chest: Denies dyspnea on exertion, productive cough, shortness of breath at rest or shortness of breath with exertion Gastrointestinal Gastrointestinal: Denies change in bowel habits, nausea, vomiting or weight changes Genitourinary Genitourinary: Denies difficulty urinating Musculoskeletal Musculoskeletal: Denies joint stiffness or muscle weakness Integumentary Integumentary: Denies lesions Neurologic Neurologic: Denies dizziness or syncope Psychiatric Psychiatric: Denies anxiety Endocrine Endocrinology: Denies excessive sweating or fatigue Hematologic/Lymphatic Hematologic/Lymphatic: Denies anemia Allergic/Immunologic Allergic/Immunologic: Denies seasonal rhinorrhea Physical Exam Const alert, oriented x3 and no apparent distress General Appearance: cooperative HEENT hearing grossly normal bilaterally Head and Scalp: atraumatic Eyes EOMs intact bilaterally Neck General: normal visual inspection Chest inspection of chest normal and palpation of chest normal Resp normal respiratory effort Auscultation: clear to auscultation bilaterally Cardio regular rate, regular rhythm, S1 normal heart sound and S2 normal heart sound Jugular Venous Distention: JVD GI normal to inspection, nondistended, normoactive bowel sounds Extremity normal capillary refill and no pedal edema Peripheral Pulses: Yes pulses 2+ throughout and femoral pulses present Skin no rashes or lesions noted Neuro oriented x3 and CN's II-XII intact bilaterally Psych Appearance: grossly normal and appropriate Risk Stratification Risk Stratification Applicable: Yes Age >/= 65: Yes >/= 3 CAD Risk Factors (HTN, HLD, DM, family hx of CAD, or current smoker): Yes Aspirin Use in the Past 7 Days: No Severe Angina (>/= episodes in 24 hours): Yes EKG ST Changes >/= 0.5mm: Yes Positive Cardiac Marker: No MARCI Risk Stratification Score: 4 MARCI % Risk: 20% Risk Objective Data Vital Signs: Weight: 202 lb 4 oz Body Mass Index (BMI) 35.8 Lab / Micro Data 11/03/24 10:21 11/03/24 10:21 Labs: Laboratory Results - last 24 hr 11/03/24 10:21: WBC 8.0, RBC 4.63, Hgb 13.8, Hct 39.2, MCV 84.7, MCH 29.8, MCHC 35.2, RDW Std Deviation 39.1, RDW Coeff of Rosalie 12.8, Plt Count 208, MPV 10.1, Immature Gran % (Auto) 0.400, Neut % (Auto) 73.2 H, Lymph % (Auto) 15.8 L, Clay % (Auto) 9.0, Eos % (Auto) 1.0, Baso % (Auto) 0.6, Absolute Neuts (auto) 5.9, Absolute Lymphs (auto) 1.27, Nucleated RBC % 0 Cardiology Labs/Tests 11/03/24 10:21: WBC 8.0, RBC 4.63, Hgb 13.8, Hct 39.2, MCV 84.7, MCH 29.8, MCHC 35.2, Plt Count 208, MPV 10.1, Immature Gran % (Auto) 0.400, Neut % (Auto) 73.2 H, Lymph % (Auto) 15.8 L, Clay % (Auto) 9.0, Eos % (Auto) 1.0, Baso % (Auto) 0.6, Absolute Neuts (auto) 5.9, Nucleated RBC % 0 Rhythm: EKG: ECHO: Stress Test: Cardiac Cath: PCI: CT Surgery: Holter monitor: EPS: PPM: CXR: Chest CT Scan: Radiography Diagnostic Testing: Radiology Impression Echocardiogram 11/03/24 07:38 Interpretation Summary Normal LV size. Moderate concentric left ventricular hypertrophy. The left ventricular ejection fraction is 70 %. Apical hypertrophic cardiomyopathy cannot be completely excluded. Ordering Physician: Teresa Millan Referring Physician: Teresa Millan Performed By: Estela Ritchie RDCS, RVT
[2024-11-03 11:39] LABS: Anion Gap 14 (5-15); BUN 16 mg/dL (4-19); BUN/Creat Ratio 19.7 RATIO (10-20); Calcium,Total 9.3 mg/dL (7.6-11.0); Carbon Dioxide 22.6 mmol/L (21.0-32.0); Chloride 104 mmol/L (98-108); Creatinine, Serum 0.82 mg/dL (0.70-1.20); EST Glomerular Filtration Rate 78 (>60); Estimated Creatinine Clearance 69.65 ml/min (50-250); Glucose 200 mg/dL (70-99); Potassium 3.6 mmol/L (3.3-5.1); Sodium Level 140 mmol/L (133-145)
--- NOTE | 2024-11-03 15:15 | EKG12_ITS ---
Test Reason : AM Blood Pressure : */* mmHG Vent. Rate : 73 BPM Atrial Rate : 73 BPM P-R Int : 258 ms QRS Dur : 150 ms QT Int : 458 ms P-R-T Axes : 64 65 32 degrees QTcB Int : 504 ms Sinus rhythm with 1st degree A-V block Right bundle branch block T wave abnormality, consider lateral ischemia Abnormal ECG When compared with ECG of 03-Nov-2024 16:09, MANUAL COMPARISON REQUIRED DATA IS UNCONFIRMED Confirmed by MACIE JEAN, FAINA ([id number]), commercial production editor STANLEY DANG ([id number]) on 11/04/2024 8:33:03 AM Referred By: Teresa Millan Confirmed By: FAINA QUIJANO MD
--- NOTE | 2024-11-03 15:31 | CL.I_ITS ---
Patient Name: CLAYTON ALVAREZ Study Date: 11/03/2024 Performing: Joel Davidson MD Ht: 161.29 inches 409.67 cm : 1955 Wt: 202.25 lbs 91.74 kg Age: 69 Gender: female BSA: 3.84 PROCEDURE(S) PERFORMED IC12-(52498/C9600)EDIS W/WO PTCA, SINGLE CORONARY ARTERY DC02-(03590)LHC/COR CLINICAL PROFILE AND CO-MORBIDITIES Heart Failure: None CONCLUSIONS Successful PTCA/EDIS Mid LAD using Ericka [place] 2.25x26 mm, post-dilated using 2.5 mm balloon Successful PTCA/EDIS Prox LAD using Frederic [place] 2.5x22 mm, optimized proximally using 3.0 mm balloon Successful EDIS distal LAD using Ericka [place] 2.0x15 mm Successful PTCA/EDIS Mid LCX using Frederic [place] 2.5x38 mm, optimized proximally using 3.0 mm balloon RECOMMENDATIONS ASA Indefinitley P2Y12 inhibitors for atleast 6 months DESCRIPTION OF PROCEDURE The patient arrived to the procedure lab. The risks and benefits of the procedure as well as a full description of our services here and current unavailability of surgical backup were fully explained to the patient and/or their significant other prior to the catheterization. The Timeout was completed, verifying the correct patient and procedure. The patient's procedural site was prepped and draped in the usual fashion. Local anesthetic was given subcutaneously to right radial region with Lidocaine 2%. Local anesthetic was given subcutaneously to right groin region with Lidocaine 2% Using a modified Seldinger technique,arterial access was obtained via the right femoral artery, a 5Fr sheath was inserted. Left Coronary Artery selective angiography was performed in multiple views using a 5 Fr. JL4 catheter. Right Coronary Artery selective angiography was then performed in multiple views using a 5 Fr. 3DRC (Song) catheter. XB 3.5 Guide catheter was inserted and engaged into the LCA. Runthrough Guide wire was advanced to the LAD. 2 x 20 Emerge Balloon catheter was inserted. Balloon catheter was advanced across lesion in the LAD, mid. PTCA balloon inflated at 8 atms for 21 secs. PTCA balloon inflated at 6 atms for 8 secs. PTCA balloon inflated at 6 atms for 6 secs. 2.25 x 26 Frederic Drug Eluting stent was inserted. Drug Eluting stent was advanced across the lesion in the LAD, mid. Angiogram performed post stent deployment. 2.5 x 22 Frederic Drug Eluting stent was inserted. Drug Eluting stent was advanced across the lesion in the LAD, proximal. Angiogram performed post stent deployment. 2.5 x 20 NC Emerge Balloon catheter was inserted post stent mid LAD. Drug Eluting stent was inserted. 2.0 x 15 Ericka Drug Eluting stent was advanced across the lesion in the LAD, distal. Angiogram performed post stent deployment. 2 x 12 NC Emerge Balloon catheter was inserted post stent Distal. Angiogram performed post balloon dilatation. 3 x 15 NC Euphora Balloon catheter was inserted post stent proximal. Guide wire was repositioned to the Circumflex 2 x 20 Emerge Balloon catheter was inserted. Balloon catheter was advanced across lesion in the circumflex, mid. PTCA balloon inflated at 8 atms for 13 secs. 2.5 x 38 Frederic Drug Eluting stent was inserted. Drug Eluting stent was advanced across the lesion in the circumflex, mid. 2.5 x 20 NC Emerge Balloon catheter was inserted post stent mid Cx. 3 x 15 NC Euphora Balloon catheter was inserted post stent. 1.5 x 8 Emerge Balloon catheter was inserted. Balloon catheter was advanced across lesion in the circumflex, mid. PTCA balloon inflated at 8 atms for 13 secs. PTCA balloon inflated at 8 atms for 24 secs. 3 x 15 NC Euphora Balloon catheter was inserted post stent Mid Cx.. Angiogram performed post balloon dilatation. Contrast was injected through the sheath and the Right Iliac and Femoral artery were assessed for possible closure device. The arterial sheath was pulled and a Perclose closure device was deployed for hemostasis INTERVENTION INFORMATION LESION SITE: LAD (Mid) Lesion Complexity: High/C, lesion length: 25 mm Pre Stenosis: 95 % Pre intervention MARCI flow: 3 PROCEDURE: Drug Eluting Stent with pre and post dilatation Post Stenosis: 0 % Post intervention MARCI flow: 3 Lesion Devices: Terumo .014 180cm Runthrough Extra Floppy straight Cordis 6 Fr XB3.5 100cm Guide Catheter [employer] Sci EMERGE MR 2.00x20 BALLOON Medtronic 2.25 x 26 ERICKA FRONTIER EDIS [employer] Sci NC EMERGE MR 2.50x20 BALLOON LESION SITE: LAD (Proximal) Lesion Complexity: High/C, lesion length: 20 mm Pre Stenosis: 95 % Pre intervention MARCI flow: 3 PROCEDURE: Drug Eluting Stent with pre and post dilatation Post Stenosis: 0 % Post intervention MARCI flow: 3 Lesion Devices: Terumo .014 180cm Runthrough Extra Floppy straight Cordis 6 Fr XB3.5 100cm Guide Catheter Medtronic 2.50 x 22 ERICKA FRONTIER EDIS Medtronic NC EUPHORA RX 3.0x15 BALLOON LESION SITE: LAD (Distal) Lesion Complexity: Non-High/Non-C, lesion length: 13 mm Pre Stenosis: 80 % Pre intervention MARCI flow: 3 Post Stenosis: 0 % Post intervention MARCI flow: 3 Lesion Devices: Terumo .014 180cm Runthrough Extra Floppy straight Cordis 6 Fr XB3.5 100cm Guide Catheter Medtronic 2.00 x 15 ERICKA FRONTIER EDIS [employer] Sci NC EMERGE MR 2.00x12 BALLOON LESION SITE: Circumflex (Mid) Lesion Complexity: High/C, lesion length: 36 mm Pre Stenosis: 95 % Pre intervention MARCI flow: 3 PROCEDURE: Drug Eluting Stent with pre and post dilatation Post Stenosis: 0 % Post intervention MARCI flow: 3 Lesion Devices: Terumo .014 180cm Runthrough Extra Floppy straight Cordis 6 Fr XB3.5 100cm Guide Catheter [employer] Sci EMERGE MR 2.00x20 BALLOON [employer] Sci NC EMERGE MR 2.50x20 BALLOON Medtronic 2.50 x 38 ERICKA FRONTIER EDIS Terumo .014 180cm Runthrough Extra Floppy straight COMPLICATIONS No Complications PROCEDURE MEDICATIONS Fentanyl 50 mcg IV Versed 1 mg IV Versed 1 mg IV Versed 1 mg IV Fentanyl 50 mcg IV Fentanyl 50 mcg IV Oxygen: 2 L/min via nasal cannula Aspirin (325mg) 1 Tabs PO 11/03/2024 10:45:21 Brilinta 180 mg PO @ 11/03/2024 13:18:26 Labetalol 10 mg 11/03/2024 13:12:18 Heparin 7000 unit(s) IV 11/03/2024 13:23:23 Heparin 4000 unit(s) IV 11/03/2024 13:40:18 Heparin 2000 unit(s) IV 11/03/2024 14:24:04 Metoprolol 5 mg 11/03/2024 13:20:43 Nitro 400 mcg IC 11/03/2024 13:45:38 Nitro 400 mcg IC 11/03/2024 13:50:32 Nitro glycerin 25mg / 250ml D5W @ 20 mcg/min IV started 11/03/2024 13:53:42 Nitro 200 mcg IC 11/03/2024 14:01:06 Nitro glycerin 25mg / 250ml D5W @ 10 mcg/min (decreased rate) 11/03/2024 14:03:21 Nitro glycerin 25mg / 250ml D5W @ 0 mcg/min discontinued 11/03/2024 14:09:49 Nitro 200 mcg IC 11/03/2024 14:37:33 Nitro 200 mcg IC 11/03/2024 14:42:04 Nitro glycerin 25mg / 250ml D5W @ 10 mcg/min IV started 11/03/2024 14:43:26 Nitro 200 mcg IC 11/03/2024 14:50:09 Nitro 200 mcg IC 11/03/2024 14:56:00 Vasotec 2.5 mg PO 11/03/2024 13:43:29 IV Bolus: .9 NaCl 250 ml total 11/03/2024 14:21:49 SUMMARY OF HEMODYNAMIC DATA Time AIR REST ECG 10:45:09 AO 206/92 (139) SA 13:06:00 AO 143/73 (101) 13:57:14 AO 93/55 (70) 14:14:52 AO 134/60 (88) 14:34:17 AIR REST 15:22:33 Signed By Joel Davidson MD On 11/03/2024 15:32:50 Signed By Joel Davidson MD On 11/03/2024 15:30:59 Joel Davidson MD
[2024-11-03 15:35] LABS: ACT Activated Clotting Time 210 sec (74-137)
[2024-11-03 15:36] LABS: ACT Activated Clotting Time 349 sec (74-137)
[2024-11-03 15:37] LABS: ACT Activated Clotting Time 239 sec (74-137)
--- NOTE | 2024-11-03 15:39 | CRPHASE1 ---
Patient Communication Patient Information PHII Cardiac Rehab Discussed with Patient:: Yes Guide to Cardiac Rehab Given to Patient:: Yes Cardiac Rehab Facility Choice List Given to Patient:: Yes Communication to Cardiac Rehab Choice Program [facility] CR PHII:: Communication Given to CR Market Consultant:: Joel Davidson Phase II Cardiac Rehab:: Yes Sessions:: 36 sessions - 3 days/wk, 12 weeks Cardiac Rehabilitation Info Program Information Cardiac Rehabilitation Program Information: Cardiac Rehab The cardiac rehab team at [facility] consists of highly skilled exercise physiologists, nurses, respiratory therapists and physicians working together with you. Our purpose is to help you have a full recovery and achieve the goals you set for yourself. Over the years many of our patients have returned to activities they assumed they would never do again! We can help restore your confidence and motivation to make lifestyle changes that can have a significant impact on your health and quality of life! We can help answer questions and concerns you may have about exercise, lifestyle, medications, diet, stress and anxiety which are common following a hospitalization. WE monitor ECG and vital signs during exercise and discuss your progress with you and report to your physician(s). Cardiac Rehab is proven to help reduce readmissions, improve functional capacity and lower recurrence of problems with your heart. Our Cardiac Rehab program is Certified by the [place] [employer]-Vascular and Pulmonary [employer] (AACVPR) and Accredited by the [place] [employer] through our [facility]. You can contact us at . We invite you to call us with your questions or to get started in our program. If you have other questions or concerns be sure to ask your physician/provider during your follow-up visit. WE look forward to seeing you!
--- NOTE | 2024-11-03 15:40 | CRPH1.INSTRU ---
General Education Discussed with Patient CAD and cardiac anatomy and function:: Patient communicates acknowledgment and Needs reinforcement Explanation of diagnoses and procedures:: Patient communicates acknowledgment and Needs reinforcement Sign/Symptoms of DC:: Patient communicates acknowledgment and Needs reinforcement Antiplatelet therapy: Patient communicates acknowledgment and Needs reinforcement Proper use of NTG-SL: Patient communicates acknowledgment and Needs reinforcement Emergency procedures and activation of EMS: Patient communicates acknowledgment and Needs reinforcement Compliance of all prescribed medications: Patient communicates acknowledgment and Needs reinforcement Dyslipidemia Risk Factors Patient Dyslipidemia Risk Factors Are:: Total Cholesterol, Triglycerides, HDL and LDL Recommendations Recommendations Include:: Lipid profile not available and Therapeutic Lifestyle Change dietary guidelines Response Code Dyslipidemia Response Code:: Patient communicates acknowledgment and Needs reinforcement Overweight/Obesity Risk Factors Patient Overweight/Obesity Risk Factors Are:: Obesity - > or = 30 Recommendations Recommendations Include:: Weight loss of 5-10%, Reduced calorie diet and Exercise 5-7 times/week Response Code Overweight/Obesity:: Patient communicates acknowledgment and Needs reinforcement Hypertension Recommendations Recommendations Include:: BP <130/80 if diabetic and Decrease/maintain normal body weight Response Code Hypertension:: Patient communicates acknowledgment and Needs reinforcement Diabetes Risk Factors Patient Diabetes Risk Factors Are:: Elevated blood sugars Recommendations Recommendations Include:: Maintain fasting blood sugars 70-110 md/dL, Maintain HgbA1c of 6% or less and Decrease/maintain body weight Response Code Diabetes:: Patient communicates acknowledgment and Needs reinforcement Sedentary Risk Factors Patient Sedentary Risk Factors Are:: Lack of regular exercise Recommendations Recommendations Include:: Aerobic exercise 5-7 times/week for 20-30 minutes continuously, Benefits of regular exercise, Discussed home walking program and Monitored Outpatient Cardiac Rehab Response Code Sedentary Response Code:: Patient communicates acknowledgment and Needs reinforcement
[2024-11-03] MEDS: Nitroglycerin Infusion 250 ML 6 MG IV (15:45)
[2024-11-03] MEDS: 0.9% Normal Saline (1000mL) 1,000 ML 100 ML IV (16:27)
--- NOTE | 2024-11-03 16:31 | CL.D_ITS ---
Patient Name: CLAYTON ALVAREZ Study Date: 11/03/2024 Performing: Jovanni Patel MD Ht: 161 inches 409.67 cm : 1955 Wt: 202.5 lbs 91.74 kg Age: 69 Gender: female BSA: 3.84 Amended PROCEDURE(S) PERFORMED IC12-(56884/C9600)EDIS W/WO PTCA, SINGLE CORONARY ARTERY IC12-(71802/C9600)EDIS W/WO PTCA, SINGLE CORONARY ARTERY DC02-(61144)C/COR CLINICAL PROFILE AND INDICATIONS Indications: Worsening Angina Heart Failure: None Stress/Imaging Date: 11/03/24Stress Test with SPECT MPI: Positive High Risk CAD Presentations: Unstable angina. CONCLUSIONS Severe two-vessel disease involving the LAD, diagonal vessel, and circumflex artery. Preserved ejection fraction. RECOMMENDATIONS Referred for immediate PCI DESCRIPTION OF PROCEDURE The patient arrived to the procedure lab. The risks and benefits of the procedure as well as a full description of our services here and current unavailability of surgical backup were fully explained to the patient and/or their significant other prior to the catheterization. The Timeout was completed, verifying the correct patient and procedure. The patient's procedural site was prepped and draped in the usual fashion. Local anesthetic was given subcutaneously to right radial region with Lidocaine 2%. Local anesthetic was given subcutaneously to right groin region with Lidocaine 2%. Using a modified Seldinger technique, arterial access was obtained via the right femoral artery, a 5Fr sheath was inserted. Left Coronary Artery selective angiography was performed in multiple views using a 5 Fr. JL4 catheter. Right Coronary Artery selective angiography was then performed in multiple views using a 5 Fr. 3DRC (Song) catheter.Contrast was injected through the sheath and the Right Iliac and Femoral artery were assessed for possible closure device.The arterial sheath was pulled and a Perclose closure device was deployed for hemostasis CORONARY ANGIOGRAPHY DOMINANCE: Right Dominant LEFT HEART ASSESSMENT Left Ventricular Ejection Fraction: by LV Gram 70 % Normal LV wall motion Normal Left Ventricular systolic function LEFT MAIN: Mild calcification, No significant disease noted LEFT ANTERIOR DESCENDING ARTERY: This is a medium size vessel with a proximal long 95% stenosis, and mid 90% stenosis and a distal 80 to 90% stenosis. The first diagonal vessel also had a long proximal 90% stenosis present. CIRCUMFLEX ARTERY: Medium size vessel with a mid tandem 90, 90, and 85% stenotic lesion noted. RIGHT CORONARY ARTERY: Mild luminal irregularities less than 30% COLLATERAL FLOW: Collateral flow from Right to Left COMPLICATIONS No Complications PROCEDURE MEDICATIONS Fentanyl 50 mcg IV Versed 1 mg IV Versed 1 mg IV Versed 1 mg IV Fentanyl 50 mcg IV Fentanyl 50 mcg IV Oxygen: 2 L/min via nasal cannula Aspirin (325mg) 1 Tabs PO 11/03/2024 10:45:21 Brilinta 180 mg PO @ 11/03/2024 13:18:26 Labetalol 10 mg 11/03/2024 13:12:18 Heparin 7000 unit(s) IV 11/03/2024 13:23:23 Heparin 4000 unit(s) IV 11/03/2024 13:40:18 Heparin 2000 unit(s) IV 11/03/2024 14:24:04 Metoprolol 5 mg 11/03/2024 13:20:43 Nitro 400 mcg IC 11/03/2024 13:45:38 Nitro 400 mcg IC 11/03/2024 13:50:32 Nitro glycerin 25mg / 250ml D5W @ 20 mcg/min IV started 11/03/2024 13:53:42 Nitro 200 mcg IC 11/03/2024 14:01:06 Nitro glycerin 25mg / 250ml D5W @ 10 mcg/min (decreased rate) 11/03/2024 14:03:21 Nitro glycerin 25mg / 250ml D5W @ 0 mcg/min discontinued 11/03/2024 14:09:49 Nitro 200 mcg IC 11/03/2024 14:37:33 Nitro 200 mcg IC 11/03/2024 14:42:04 Nitro glycerin 25mg / 250ml D5W @ 10 mcg/min IV started 11/03/2024 14:43:26 Nitro 200 mcg IC 11/03/2024 14:50:09 Nitro 200 mcg IC 11/03/2024 14:56:00 Vasotec 2.5 mg PO 11/03/2024 13:43:29 IV Bolus: .9 NaCl 250 ml total 11/03/2024 14:21:49 SUMMARY OF HEMODYNAMIC DATA Time AIR REST ECG 10:45:09 AO 206/92 (139) SA 13:06:00 AO 143/73 (101) 13:57:14 AO 93/55 (70) 14:14:52 AO 134/60 (88) 14:34:17 AIR REST 15:22:33 Signed By Jovanni Patel MD On 11/03/2024 16:30:45 Jovanni Patel MD
[2024-11-03] MEDS: hydroCHLOROthiazide 25 MG Tablet PO (17:10)
--- NOTE | 2024-11-03 18:03 | PN.HOSP_ITS ---
Reason for Visit Reason for Visit: Diagnoses Type 2 diabetes mellitus without complications (11/03/24) Essential (primary) hypertension (11/03/24) Atherosclerotic heart disease of lummi coronary artery without angina pectoris (11/03/24) Chest pain, unspecified (11/03/24) Abnormal result of other cardiovascular function study (11/03/24) Subjective Subjective 69-year-old female history of diabetes, hypertension, anxiety presented [facility] 11/03/2024 for a heart catheterization. On an outpatient basis she underwent a stress test and had a markably abnormal test so she presented 11/03 for a cardiac catheterization. Cardiac cath showed severe two- vessel disease involving LAD and patient underwent [place] EDIS 2.25 X 26mm to Mid LAD; 2.5 X 22mm to Prox LAD; 2.0 X 15mm to distal LAD; and 2.5 X 38 to mid LCX. She was subsequently transferred to PCU on nitro drip with Coreg, hydrochlorothiazide, lisinopril as well as Plavix and atorvastatin. She was noted to have elevated glucoses so hospitalist contacted for medical management/diabetes management. Patient evaluated at bedside and reports she had been a little bit nauseous, fill in front of her but due to needing to go through her groin she is still supposed to lay flat so she is a little bit bothered and is so difficult to eat. Denies any chest pain or shortness of breath. Urine is slightly dark in nature when she reports it could be a kidney infection. She said she gets some sometimes at home but poor historian and had difficulty describing this any further, said she will usually just sitting QT and it is fine. Reports some urinary frequency but said this happens with her elevated glucoses, she said occasionally she will get some dysuria but this is intermittent and happens at home as well. No other new or acute complaints Objective Data Objective Data Vital Signs: Vital Signs Temp Pulse Resp BP Pulse Ox O2 Del Method 97.6 F L 75 18 154/78 H 96 Room Air 11/03/24 15:45 11/03/24 17:30 11/03/24 16:30 11/03/24 17:30 11/03/24 16:30 11/03/24 16:30 Oxygen Delivery Method Room Air Weight: 91.739 kg Body Mass Index (BMI) 35.8 Intake & Output: Intake and Output for Last 24 Hours 11/01/24 11/02/24 11/03/24 23:59 23:59 23:59 Intake Total 7.5 / 7.5 Balance 7.5 / 7.5 Lab / Micro Data 11/03/24 10:21 11/03/24 10:21 Labs: Laboratory Results - last 24 hr 11/03/24 10:21: WBC 8.0, RBC 4.63, Hgb 13.8, Hct 39.2, MCV 84.7, MCH 29.8, MCHC 35.2, RDW Std Deviation 39.1, RDW Coeff of Rosalie 12.8, Plt Count 208, MPV 10.1, Immature Gran % (Auto) 0.400, Neut % (Auto) 73.2 H, Lymph % (Auto) 15.8 L, [place] % (Auto) 9.0, Eos % (Auto) 1.0, Baso % (Auto) 0.6, Absolute Neuts (auto) 5.9, Absolute Lymphs (auto) 1.27, Nucleated RBC % 0, Sodium 140, Potassium 3.6, Chloride 104, Carbon Dioxide 22.6, Anion Gap 14, BUN 16, Creatinine 0.82, Estim Creat Clear Calc 69.65, Est GFR (MDRD) Non-Af 78, BUN/Creatinine Ratio 19.7, G lucose 200 H, Calcium 9.3 11/03/24 12:37: Activated Clotting Time 210 H 11/03/24 13:48: Activated Clotting Time 349 H 11/03/24 14:03: Activated Clotting Time 239 H Radiography Diagnostic Testing: Radiology Impression Echocardiogram 11/03/24 07:38 Interpretation Summary Normal LV size. Moderate concentric left ventricular hypertrophy. The left ventricular ejection fraction is 70 %. Apical hypertrophic cardiomyopathy cannot be completely excluded. Ordering Physician: Teresa Millan Referring Physician: Teresa Millan Performed By: Estela Ritchie, GWENCS, RVT Physical Exam Narrative General: Alert, no apparent distress somewhat poor historian HEENT: Atraumatic, normocephalic Eyes: Anicteric, normal conjunctiva, extraocular movements grossly intact Neck: Supple Respiratory: Clear to auscultation bilaterally, normal respiratory effort Cardiovascular: Regular rate and rhythm GI: Soft, nontender, nondistended Extremities: No edema Musculoskeletal: Moving all extremities Neuro: No overt focal neurological deficits Skin: No rashes appreciated, presently being recovered from cath Psych: Cooperative Assessment & Plan Assessment/Plan (1) Diabetes mellitus: QUALIFIERS: Diabetes mellitus type: type 2 Diabetes mellitus complication detail: with polyneuropathy PLAN: Plan # Uncontrolled type 2 diabetes mellitus -Glucose checks and sliding scale insulin -Patient was continued on her home glimepiride -Will check an A1c -Advised the patient follow closely with her PCP, reports that she just saw them a few days ago and that they had not made changes, she reports her a.m. glucose is often in the 90s but throughout the day goes up to 200s to 300s, stressed that I will be important to get this under control on an outpatient basis # Abnormally colored urine -Suspected may be due to nitro drip but difficult to tell with patient's vacillating story -Will check UA and urine culture but will forego starting empiric antibiotics unless culture positive, UA highly suspicious or patient has temperature/does have other signs or symptoms of infection #Anxiety -Continue home medications # Hypertension -Patient with significant hypertension in the [employer] and went to PCU on nitro drip -Patient continued on home lisinopril and show had hydrochlorothiazide and Coreg added # Coronary disease now status post stenting -[place] EDIS 2.25 X 26mm to Mid LAD; 2.5 X 22mm to Prox LAD; 2.0 X 15mm to distal LAD; and 2.5 X 38 to mid LCX -Cardiology primary -Patient on beta-pennie, clopidogrel, statin -Also on nitro drip #DVT ppx: SCDs Brea Manjarrez MD Time spent in the patient's overall evaluation, decision-making process, review of diagnostic data, adjustment of management, discussion with other providers, nursing and ancillary staff involved in patient's care documentation, 35 Minutes Charges/Coding Visit Charges Office Visits / Consults: 68170 OV L4 Est 30min
[2024-11-03] MEDS: Atorvastatin Calcium 40 MG Tablet PO (20:42)
[2024-11-03] MEDS: Carvedilol 6.25 MG Tablet PO (20:42)
[2024-11-03] MEDS: Clopidogrel Bisulfate 300 MG Tablet PO (20:47)
[2024-11-03] MEDS: Insulin Lispro 100 UNIT/ML INSULN.PEN SC (20:47)
[2024-11-03 21:03] LABS: Bedside Glucose 311 mg/dL (74-106)
[2024-11-04 01:32] LABS: Mucous, Urine 0 SEEN /hpf (<or=2+); Squamous Epithelial Cells - UA 0 SEEN /hpf (5-10); White Blood Cells 0 SEEN /hpf (0-5)
[2024-11-04 01:35] LABS: Color, Urine Red (Yellow); Glucose, Dipstick Normal (Normal); Ketone-Dipstick 5 mg/dl (Negative); Leukocyte Esterase-Dipstick Negative /ul (Negative); Nitrite-Dipstick Negative (Negative); Occult Blood-Urine 250 /ul (Negative); Protein-Dipstick 500 mg/dl (Negative); Urine Bilirubin Dipstick Negative (Negative); Urine Clarity Turbid (Clear); Urine Urobilinogen Normal (Normal)
[2024-11-04 01:57] LABS: Bacteria RARE /hpf (None Seen); Red Blood Cells-Urine > 100 SEEN /hpf (0-5)
[2024-11-04 02:19] LABS: Cholesterol 276 mg/dL (<=200); High Density Lipoprotein 52 mg/dL; Low Density Lipoprotein Calc. 195 mg/dL; Triglycerides 150 mg/dL; Very Low Density Lipoprotein 30 mg/dL (5-40); cholesterol:hdl ratio screen 5.36
[2024-11-04 02:51] VITALS: BP 145/45; PULSE 76; RESP 14; TEMP 36.6; O2SAT 100
[2024-11-04 03:15] LABS: Hemoglobin A1c 7.6 % (<=5.6)
--- NOTE | 2024-11-04 03:38 | EKG12_ITS ---
Test Reason : POST PCI Blood Pressure : */* mmHG Vent. Rate : 76 BPM Atrial Rate : 76 BPM P-R Int : 256 ms QRS Dur : 142 ms QT Int : 458 ms P-R-T Axes : 64 67 65 degrees QTcB Int : 515 ms Sinus rhythm with 1st degree A-V block Right bundle branch block Abnormal ECG When compared with ECG of 27-Aug-2017 06:25, Premature ventricular complexes are no longer Present NH interval has increased Right bundle branch block is now Present Confirmed by MACIE JEAN, FAINA ([id number]), editor house organ TERESA HSU ([id number]) on 11/05/2024 12:53:01 PM Referred By: Teresa Millan Confirmed By: FAINA QUIJANO MD
[2024-11-04 07:12] LABS: Hematocrit 36.3 % (37-47); Mean Corp Hgb Conc 35.8 g/dL (32-36); Mean Corpuscular Hgb 29.6 pg (27.0-32.0); Mean Corpuscular Volume 82.7 fL (81-99); Mean Platelet Vol. 10.3 fl (6.2-12.0); Platelet Count 218 K/mm3 (150-450); RBC Distribution Width CV 13.1 % (11.6-14.6); RBC Distribution Width SD 39.2 fl (35.1-43.9); Red Blood Count 4.39 M/mm3 (4.2-5.4)
--- NOTE | 2024-11-04 07:32 | PCM.PN.CARD ---
Subjective Subjective Patient seen and evaluated. Doing much better this morning. No complaints. Underwent extensive stenting yesterday Objective Data Vital Signs: Vital Signs Temp Pulse Resp BP Pulse Ox O2 Del Method 98 F 76 14 145/45 H 100 Room Air 11/04/24 02:51 11/04/24 02:51 11/04/24 02:51 11/04/24 02:51 11/04/24 02:51 11/04/24 02:51 Oxygen Delivery Method Room Air Weight: 202 lb 4 oz Body Mass Index (BMI) 35.8 Intake & Output: Intake and Output for Last 24 Hours 11/02/24 11/03/24 11/04/24 23:59 23:59 23:59 Intake Total 11.3 / 161.3 1550 / 1550 Output Total 0 / 0 Balance 11.3 / 161.3 1550 / 1550 Lab / Micro Data 11/04/24 06:47 11/03/24 10:21 Labs: Laboratory Results - last 24 hr 11/03/24 10:21: WBC 8.0, RBC 4.63, Hgb 13.8, Hct 39.2, MCV 84.7, MCH 29.8, MCHC 35.2, RDW Std Deviation 39.1, RDW Coeff of Rosalie 12.8, Plt Count 208, MPV 10.1, Immature Gran % (Auto) 0.400, Neut % (Auto) 73.2 H, Lymph % (Auto) 15.8 L, [place] % (Auto) 9.0, Eos % (Auto) 1.0, Baso % (Auto) 0.6, Absolute Neuts (auto) 5.9, Absolute Lymphs (auto) 1.27, Nucleated RBC % 0, Sodium 140, Potassium 3.6, Chloride 104, Carbon Dioxide 22.6, Anion Gap 14, BUN 16, Creatinine 0.82, Estim Creat Clear Calc 69.65, Est GFR (MDRD) Non-Af 78, BUN/Creatinine Ratio 19.7, Glucose 200 H, Hemoglobin A1c 7.6, Calcium 9.3, Triglycerides 150, Cholesterol 276 H, LDL Cholesterol, Calc 195, VLDL Cholesterol 30, HDL Cholesterol 52, Cholesterol/HDL Ratio 5.36 11/03/24 12:37: Activated Clotting Time 210 H 11/03/24 13:48: Activated Clotting Time 349 H 11/03/24 14:03: Activated Clotting Time 239 H 11/03/24 20:36: POC Glucose 311 H 11/04/24 01:08: Urine Color Red, Urine Clarity Turbid, Urine pH 7.0, Ur Specific [place] 1.010, Urine Protein 500 H, Urine Glucose (UA) Normal, Urine Ketones 5 H, Urine Occult Blood 250 H, Urine Nitrite Negative, Urine Bilirubin Negative, Urine Urobilinogen Normal, Ur Leukocyte Esterase Negative, Urine RBC > 100 SEEN, Urine WBC 0 SEEN, Ur Squamous Epith Cells 0 SEEN, Urine Bacteria RARE, Urine Mucus 0 SEEN 11/04/24 06:47: WBC 11.0, RBC 4.39, Hgb 13.0, Hct 36.3 L, MCV 82.7, MCH 29.6, MCHC 35.8, RDW Std Deviation 39.2, RDW Coeff of Rosalie 13.1, Plt Count 218, MPV 10.3 Cardiology Labs/Tests 11/03/24 10:21: WBC 8.0, RBC 4.63, Hgb 13.8, Hct 39.2, MCV 84.7, MCH 29.8, MCHC 35.2, Plt Count 208, MPV 10.1, Immature Gran % (Auto) 0.400, Neut % (Auto) 73.2 H, Lymph % (Auto) 15.8 L, [place] % (Auto) 9.0, Eos % (Auto) 1.0, Baso % (Auto) 0.6, Absolute Neuts (auto) 5.9, Nucleated RBC % 0, Sodium 140, Potassium 3.6, Chloride 104, Carbon Dioxide 22.6, Anion Gap 14, BUN 16, Creatinine 0.82, Est GFR (MDRD) Non-Af 78, BUN/Creatinine Ratio 19.7, Glucose 200 H, Hemoglobin A1c 7.6, Calcium 9.3, Triglycerides 150, Cholesterol 276 H, VLDL Cholesterol 30, HDL Cholesterol 52, Cholesterol/HDL Ratio 5.36 11/04/24 01:08: Urine Color Red, Urine Clarity Turbid, Urine pH 7.0, Ur Specific [place] 1.010, Urine Protein 500 H, Urine Glucose (UA) Normal, Urine Ketones 5 H, Urine Occult Blood 250 H, Urine Nitrite Negative, Urine Bilirubin Negative, Urine Urobilinogen Normal, Ur Leukocyte Esterase Negative, Urine RBC > 100 SEEN, Urine WBC 0 SEEN 11/04/24 06:47: WBC 11.0, RBC 4.39, Hgb 13.0, Hct 36.3 L, MCV 82.7, MCH 29.6, MCHC 35.8, Plt Count 218, MPV 10.3 Rhythm: EKG: ECHO: Stress Test: Cardiac Cath: PCI: CT Surgery: Holter monitor: EPS: PPM: CXR: Chest CT Scan: Radiography Diagnostic Testing: Radiology Impression Echocardiogram 11/03/24 07:38 Interpretation Summary Normal LV size. Moderate concentric left ventricular hypertrophy. The left ventricular ejection fraction is 70 %. Apical hypertrophic cardiomyopathy cannot be completely excluded. Ordering Physician: Teresa Millan Referring Physician: Teresa Millan Performed By: Estela Ritchie, SHAKIR, RVT Physical Exam Const alert, oriented x3 and no apparent distress General Appearance: cooperative HEENT hearing grossly normal bilaterally Head and Scalp: atraumatic Eyes EOMs intact bilaterally Neck General: normal visual inspection Chest inspection of chest normal and palpation of chest normal Resp normal respiratory effort Auscultation: clear to auscultation bilaterally Cardio regular rate, regular rhythm, S1 normal heart sound and S2 normal heart sound Jugular Venous Distention: JVD GI normal to inspection, nondistended, normoactive bowel sounds Extremity normal capillary refill and no pedal edema Peripheral Pulses: Yes pulses 2+ throughout and femoral pulses present Skin no rashes or lesions noted Neuro oriented x3 and CN's II-XII intact bilaterally Psych Appearance: grossly normal and appropriate Assessment & Plan Assessment/Plan (1) Abnormal cardiovascular stress test: PLAN: She does have a markedly abnormal stress test. Her cardiac catheterization demonstrated severe two-vessel disease for which she underwent angioplasty and stenting extensively of the left anterior descending artery, and the circumflex artery. Her ejection fraction was preserved. She will continue medications with the following: Aspirin, Clopidogrel, High intensity statin. (2) Hypertension: PLAN: She does have a history of hypertension she will continue with the ALYSE inhibitor at this time. On the low-dose beta-pennie she did develop some intermittent 2-1 heart block and so I would hold off on this at this present time. Would add amlodipine 5 mg a day to her regimen Continue hydrochlorothiazide (3) Diabetes mellitus: QUALIFIERS: Diabetes mellitus type: type 2 Diabetes mellitus complication detail: with polyneuropathy PLAN: She does appear to have diabetes mellitus which was not very well-controlled. I appreciate the hospitalist business process consultant input Will treat appropriately and have her follow-up with her primary care physician. Dietitian input is also appreciated.
[2024-11-04 07:34] LABS: Hemoglobin A1c 7.5 % (<=5.6)
[2024-11-04 07:38] LABS: ALB/GLOB Ratio -5.2 RATIO (0.9-2.4); AST(SGOT) 53 U/L (<=31); Alanine Aminotransfer ALT/SGPT 22 U/L (<=34); Albumin, Serum 3.6 g/dL (3.4-4.8); Alkaline Phosphatase 63 U/L (35-104); Anion Gap 16 (5-15); BUN 20 mg/dL (4-19); BUN/Creat Ratio 20.7 RATIO (10-20); Calcium,Total 7.9 mg/dL (7.6-11.0); Carbon Dioxide 22.2 mmol/L (21.0-32.0); Chloride 101 mmol/L (98-108); Creatinine, Serum 0.94 mg/dL (0.70-1.20); EST Glomerular Filtration Rate 65 (>60); Estimated Creatinine Clearance 60.76 ml/min (50-250); Globulin -0.7 g/dL (2.2-4.2); Glucose 151 mg/dL (70-99); Potassium 3.4 mmol/L (3.3-5.1); Protein, Total 2.9 g/dL (5.9-8.4); Sodium Level 139 mmol/L (133-145); Total Bilirubin 0.48 mg/dL (0.00-1.30)
--- NOTE | 2024-11-04 07:39 | DCINST_ITS ---
Discharge Instructions Diet Discharge Diet: No restrictions (You may continue your normal diet.) DC O2, CPAP, BIPAP needs Home O2 Discharge instructions: No Dressing / Incision Discharge Activity: Return to Normal Activity Lifting Restrictions: 10 pounds and also avoid any pushing or pulling for 3 days after your test. Additional Activity Instructions:: You must have someone drive you home. Do not drive until instructed by your doctor. You must have someone stay with you all night after your test. Rest in bed or on the couch until the next morning. Limit the number of times you go up and down stairs the day of your test. Apply pressure to the puncture site if you sneeze or cough. Dressing / Incision Call your doctor if your incision/area has: Increased Pain/ Swelling, Increased Redness, Foul Smelling Discharge and Swelling at the incision site Call your doctor if you observe: Fever of 101 or Higher Additional Dressing/Incision Instructions:: Keep the dressing (bandage) on until the next morning. You may then shower, but do not take a tub bath for 5 days after your test. It is normal to have some tenderness and discomfort at the puncture site. Sometimes bruising also occurs. However, if pain, numbness, or coldness occurs below the puncture site (in your leg, toes, arms or fingers) call your doctor at once. You may have a small, marble sized knot at the puncture site. This is normal. Do not rub it. It will go away in 4-6 weeks. Bleeding can occur from the area where the puncture was done. Blood may spurt or drip from the site. If blood spurts, apply pressure right away to stop bleeding and call 911. Although rare, bleeding into the tissue (hematoma) can also occur. If this happens, a large, firm area goose egg under the skin will appear. If any of these occur, lie down as flat as you can and have someone apply firm pressure to the cath site with a gauze pad or a clean washcloth for 10-15 minutes. Call 911 or go to the Emergency Department. Follow Up Care When: Appointment will be made for heart group follow-up. Test Results: Test results from this visit will be discussed in further detail at your follow- up appointment, if applicable. Discharge Plan Admission Admit Date/Time: 11/03/24 15:19 Attending Provider: Joel Davidson Primary Care Provider: Teresa Millan NP Consulting Providers: Brea Manjarrez; Lianne English Discharge Orders/Prescriptions Prescriptions: No Action lisinopril 20 mg tablet 20 mg PO DAILY Patient Comments: TAKE 1 TABLET DAILY glimepiride 4 mg tablet 4 mg PO DAILY Patient Comments: TAKE 1 TABLET TWICE DAILY hydroxyzine HCl 25 mg tablet 25 mg PO TID PRN (Reason: anxiety) Referrals / Follow Up: Teresa Millan NP, [facility] [Primary Care Provider] -
--- NOTE | 2024-11-04 07:46 | PN.HOSP_ITS ---
Reason for Visit Reason for Visit: Uncontrolled blood sugar Subjective Subjective Patient states she takes a half a tablet of her 4 mg of glimepiride at night. She states she was on metformin and insulin however she stopped taking them both because it was making her blood sugars higher. Objective Data Objective Data Vital Signs: Vital Signs Temp Pulse Resp BP Pulse Ox O2 Del Method 98 F 76 14 145/45 H 100 Room Air 11/04/24 02:51 11/04/24 02:51 11/04/24 02:51 11/04/24 02:51 11/04/24 02:51 11/04/24 02:51 Oxygen Delivery Method Room Air Weight: 91.739 kg Body Mass Index (BMI) 35.8 Intake & Output: Intake and Output for Last 24 Hours 11/02/24 11/03/24 11/04/24 23:59 23:59 23:59 Intake Total 11.3 / 161.3 1550 / 1550 Output Total 0 / 0 Balance 11.3 / 161.3 1550 / 1550 Lab / Micro Data 11/04/24 06:47 11/04/24 06:47 Labs: Laboratory Results - last 24 hr 11/03/24 10:21: WBC 8.0, RBC 4.63, Hgb 13.8, Hct 39.2, MCV 84.7, MCH 29.8, MCHC 35.2, RDW Std Deviation 39.1, RDW Coeff of Rosalie 12.8, Plt Count 208, MPV 10.1, Immature Gran % (Auto) 0.400, Neut % (Auto) 73.2 H, Lymph % (Auto) 15.8 L, [place] % (Auto) 9.0, Eos % (Auto) 1.0, Baso % (Auto) 0.6, Absolute Neuts (auto) 5.9, Absolute Lymphs (auto) 1.27, Nucleated RBC % 0, Sodium 140, Potassium 3.6, Chloride 104, Carbon Dioxide 22.6, Anion Gap 14, BUN 16, Creatinine 0.82, Estim Creat Clear Calc 69.65, Est GFR (MDRD) Non-Af 78, BUN/Creatinine Ratio 19.7, G lucose 200 H, Hemoglobin A1c 7.6, Calcium 9.3, Triglycerides 150, Cholesterol 276 H, LDL Cholesterol, Calc 195, VLDL Cholesterol 30, HDL Cholesterol 52, Cholesterol/HDL Ratio 5.36 03/25/25 12:37: Activated Clotting Time 210 H 11/03/24 13:48: Activated Clotting Time 349 H 11/03/24 14:03: Activated Clotting Time 239 H 11/03/24 20:36: POC Glucose 311 H 11/04/24 01:08: Urine Color Red, Urine Clarity Turbid, Urine pH 7.0, Ur Specific [place] 1.010, Urine Protein 500 H, Urine Glucose (UA) Normal, Urine Ketones 5 H , Urine Occult Blood 250 H, Urine Nitrite Negative, Urine Bilirubin Negative, Urine Urobilinogen Normal, Ur Leukocyte Esterase Negative, Urine RBC > 100 SEEN, Urine WBC 0 SEEN, Ur Squamous Epith Cells 0 SEEN, Urine Bacteria RARE, Urine Mucus 0 SEEN 11/04/24 06:47: WBC 11.0, RBC 4.39, Hgb 13.0, Hct 36.3 L, MCV 82.7, MCH 29.6, MCHC 35.8, RDW Std Deviation 39.2, RDW Coeff of Rosalie 13.1, Plt Count 218, MPV 10.3, Sodium 139, Potassium 3.4, Chloride 101, Carbon Dioxide 22.2, Anion Gap 16 H, BUN 20 H, Creatinine 0.94, Estim Creat Clear Calc 60.76, Est GFR (MDRD) Non- Af 65, BUN/Creatinine Ratio 20.7 H, Glucose 151 H, Hemoglobin A1c 7.5, Calcium 7.9, Total Bilirubin 0.48, AST 53 H, ALT 22, Alkaline Phosphatase 63, Total Protein 2.9 L, Albumin 3.6, Globulin -0.7 L, Albumin/Globulin Ratio -5.2 L Radiography Diagnostic Testing: Radiology Impression Echocardiogram 11/03/24 07:38 Interpretation Summary Normal LV size. Moderate concentric left ventricular hypertrophy. The left ventricular ejection fraction is 70 %. Apical hypertrophic cardiomyopathy cannot be completely excluded. Ordering Physician: Teresa Millan Referring Physician: Teresa Millan Performed By: Estela Ritchie, SHAKIR, RVT Physical Exam Const alert, oriented x3, no apparent distress and well nourished; Negative for average body habitus or healthy appearing Constitutional Narrative: Obese, [place], white female, sitting up in bed, appears comfortable, nontoxic HEENT head/scalp atraumatic Head and Scalp: normocephalic Resp normal respiratory effort, no retractions, no use of accessory muscles and clear to auscultation bilaterally Auscultation: Negative for rales, rhonchi or wheezes Cardio regular rate, regular rhythm, S1 normal heart sound, S2 normal heart sound, no murmurs, no rub, no gallops and no clicks GI normal to inspection, nondistended, normoactive bowel sounds, soft to palpation and non-tender Extremity no clubbing, cyanosis or edema Extremity Narrative: 2+ pedal pulses, 2+ radial pulses Neuro oriented x3 and moves all extremities Speech: speech normal Psych affect normal Psych Narrative: Interacts appropriately, eye contact is good Assessment & Plan Assessment/Plan (1) Diabetes mellitus: QUALIFIERS: Diabetes mellitus type: type 2 Diabetes mellitus complication detail: with polyneuropathy (2) Hyperglycemia: PLAN: Plan DM-2 (uncontrolled) -Hemoglobin A1c was 7.6 and given the severity of her coronary disease we should try to drive this as well as possible -Patient is understanding of her diabetes seems to be somewhat compromised -Consultation to dietitian for some education on diet -Continue home glimepiride at 2 mg at at bedtime -Will add metformin 500 mg p.o. twice daily -Patient will need a repeat hemoglobin A1c at the end of January or early February 2025 to asses glycemic control -I have requested patient not check her home blood sugars as she is making adjustments in her regimen without instruction based on her own assessments Abnormally colored urine -Resolved -Patient did have some hematuria -Will need repeat UA as an outpatient for follow-up but no signs of infection Anxiety -Continue home medications CAD/HPL/essential hypertension -[place] EDIS 2.25 X 26mm to Mid LAD; 2.5 X 22mm to Prox LAD; 2.0 X 15mm to distal LAD; and 2.5 X 38 to mid LCX placed on 11/03/2024 -Medications per primary service Obesity -BMI is 35.8 next-recommend weight loss -Complicates treatment, prognosis, outcomes Disposition: -Okay for discharge -Discussed with Dr. Patel Charges/Coding Visit Charges Inpatient E&M: 17720 Subs Hosp L2
[2024-11-04 08:06] LABS: Bedside Glucose 168 mg/dL (74-106)
[2024-11-04 08:20] VITALS: BP 155/64; PULSE 77; RESP 16; TEMP 36.5; O2SAT 93
[2024-11-04] MEDS: Lisinopril 20 MG Tablet PO (08:22)
[2024-11-04] MEDS: Aspirin 81 MG TAB.CHEW PO (08:22)
[2024-11-04] MEDS: amLODIPine 5 MG Tablet PO (08:22)
[2024-11-04] MEDS: Clopidogrel Bisulfate 75 MG Tablet PO (08:22)
[2024-11-04] MEDS: Glimepiride 4 MG Tablet PO (08:22)
[2024-11-04] MEDS: hydroCHLOROthiazide 25 MG Tablet PO (08:22)
[2024-11-04 08:49] LABS: Bedside Glucose 146 mg/dL (74-106)
--- NOTE | 2024-11-04 09:29 | CASEMGMT ---
Patient has order for discharge. RN CM in to discuss needs at discharge, at bedside. Patient denies needs or help at discharge. Patient had no further questions or concerns
== END 2024-11-04 10:07 | disposition home or self-care (01) ==
LOC: PCU 15:51
PROVIDERS: Internal Medicine; Internal Medicine Cardiovascular Disease; Admitting Provider Internal Medicine Cardiovascular Disease; PCP Nurse Practitioner Family; Referring Provider Nurse Practitioner Family; Visit Provider Internal Medicine Cardiovascular Disease
DX: I25.110 Atherosclerotic heart disease of native coronary artery with unstable angina pectoris (principal); E11.65 Type 2 diabetes mellitus with hyperglycemia; E11.42 Type 2 diabetes mellitus with diabetic polyneuropathy; Z79.84 Long term (current) use of oral hypoglycemic drugs; I10 Essential (primary) hypertension; R94.39 Abnormal result of other cardiovascular function study; Z79.899 Other long term (current) drug therapy; E66.9 Obesity, unspecified; Z68.35 Body mass index [BMI] 35.0-35.9, adult; R82.90 Unspecified abnormal findings in urine; F41.9 Anxiety disorder, unspecified; E78.5 Hyperlipidemia, unspecified
CPT/HCPCS: 36415; 78452; 80048; 80053; 80061; 81001; 82962; 83036; 85025; 85027; 85347; 87086; 92928; 93005; 93017; 93306; 93454; 96361; 96365; 96366; 99152; 99153; 99221; A9500; C1874; C1894; Q9967; A4216; C1725; C1760; C1769; C1887; C9600; G0378; J2785

== ENCOUNTER 2025-01-18 11:11 | Inpatient (IN) | payer OTHER, SELFPAY ==
[2025-01-18] VITALS (7 sets, daily range): BP systolic 163–184; BP diastolic 50–70; PULSE 43–97; RESP 16–18; TEMP 36.8–37; O2SAT 93–100; BMI 36.5; BMI 33.2
--- NOTE | 2025-01-18 11:49 | RAD_ITS ---
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 There is a soft tissue defect with absence of the 3rd distal phalanx and majority of the 3rd middle phalanx, which may be postsurgical. There is no visible acute fracture or dislocation. There is soft tissue swelling in the dorsal and plantar aspect of the metatarsal region. There is no visible radiopaque foreign body or definite soft tissue air. Vascular calcifications are visible. 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 There is a soft tissue defect with absence of the 3rd distal phalanx and majori ty of the 3rd middle phalanx, which may be postsurgical. Consider MRI with and without contrast, or three-phase bone scan if there is clinical suspicion of acute osteomyelitis. There is soft tissue swelling in the dorsal and plantar aspect of the metatarsa l region. Reading Location: [facility]
[2025-01-18] MEDS: 0.9% Normal Saline (1000mL) 1,000 ML 1000 ML IV (12:10)
[2025-01-18 12:19] LABS: Erythrocyte Sedimentation Rate 25 mm/hr (0-30)
[2025-01-18 12:22] LABS: Absolute Lymphocyte Count 1.52 X10^3/uL (0.83-4.51); Absolute Neutrophil Count 6.8 X10^3/uL (2.0-7.7); Basophil# 0.08 X10^3/uL; Basophil% 0.8 % (0-1); Eosinophil# 0.18 X10^3/uL; Eosinophils% 1.9 % (0-5); Hematocrit 32.8 % (37-47); Hemoglobin 11.4 g/dL (12.0-15.0); Lymphocyte # 1.52 X10^3/ul (0.83-4.51); Lymphocyte % 15.9 % (19-41); Mean Corp Hgb Conc 34.8 g/dL (32-36); Mean Corpuscular Hgb 29.4 pg (27.0-32.0); Mean Corpuscular Volume 84.5 fL (81-99); Mean Platelet Vol. 9.9 fl (6.2-12.0); Monocyte% 9.4 % (0-10); NRBC Flagged by Analyzer 0 % (0-5); Neutrophil # 6.83 X10^3/uL (2.7-7.7); Neutrophil % 71.6 % (47-70); POSITIVE COUNT YES; RBC Distribution Width CV 12.1 % (11.6-14.6); RBC Distribution Width SD 36.9 fl (35.1-43.9); Red Blood Count 3.88 M/mm3 (4.2-5.4); White Blood Count 9.6 K/mm3 (4.4-11.0)
--- NOTE | 2025-01-18 12:22 | EX.ED.DYSGE1 ---
HPI History of Present Illness Chief Complaint: Lower Extremity Injury Narrative Narrative: Chief complaint and HPI: Left foot infection. 69-year-old female with past medical history of left foot surgery secondary to gangrene, DM2, CAD, HLD presents for evaluation of left foot infection. History taken by patient as well as medical record. On chart review, patient had gangrene of the left hallux with chronic ulcer dorsal left foot down to necrotic bone in which she required debridement and amputation. This was in August [address] Aguillon. Patient states that she followed with him for several months after but has not seen him in years. She states over the past week she developed a wound to the dorsum of her left foot as well as erythema and swelling. She has also noticed necrosis of the toes. She denies any fever, chills, nausea, vomiting. Review of systems: See HPI Medications: As listed on the chart Allergies: As listed on the chart PFSH: Per chart Vital signs: As listed on the chart. Reviewed. Physical exam: Gen: A&O x3, NAD Head: Normocephalic, atraumatic Eyes: No sclera icterus, conjunctiva clear ENT: Moist mucous membranes CV: RRR, no murmurs Resp: Lungs CTA BL, no w/r/c GI: Abd soft, non-distended, non-tender, no r/r/g Musc: Full ROM, patient has a large ulcer/wound to the dorsum of the left foot with surrounding erythema and warmth, she has chronic surgical changes including amputation of the first toe, she has necrosis to the tip/distal aspect of the 2nd and 3rd toe. Third toe is partially auto amputating. There is another small ulcer to the dorsum of the second toe. Good capillary refill. DP pulse unable to be dopplerable or palpated secondary to large ulcer, PT dopplerable Skin: Warm, dry Neuro: Alert, oriented, grossly intact, sensation intact Psych: Cooperative, appropriate mood and affect [facility] Medical History (Updated 01/18/25 @ 11:58 by Yasemin Romero) Diabetes Left great toe amputee Home Medications ?Medication ?Instructions ?Recorded ?Last Taken ?Type lisinopril 20 mg tablet 20 mg PO DAILY 11/03/24 01/18/25 History amlodipine 5 mg tablet 5 mg PO DAILY #90 tabs 11/04/24 01/18/25 Rx aspirin 81 mg chewable tablet 81 mg PO BREAKFAST #90 tabs 11/04/24 01/18/25 Rx clopidogrel 75 mg tablet 75 mg PO DAILY #90 tabs 11/04/24 01/18/25 Rx glimepiride 4 mg tablet 4 mg PO DAILY #1 TAB 11/04/24 01/17/25 Rx hydrochlorothiazide 25 mg tablet 25 mg PO DAILY #90 tabs 11/04/24 01/18/25 Rx doxycycline hyclate 100 mg tablet 100 mg PO BID 01/18/25 01/18/25 History Allergy/AdvReac Type Severity Reaction Status Date / Time cephalexin (From Keflex) Allergy Rash Verified 01/18/25 11:12 morphine Allergy Unknown Verified 01/18/25 11:12 Surgical History Stented coronary artery (11/03/24) Social History (Reviewed 11/26/24 @ 10:41 by Rivka Bee INTERIOR DESIGN PROFESSOR, INTERIOR DESIGN PROFESSOR-C) Smoking Status: Never smoker EXAM Physical Exam Const Vital Signs: 01/18/25 11:12 Temperature 98.4 F Temperature Source Oral Pulse Rate 97 Respiratory Rate 18 Blood Pressure 167/70 H Blood Pressure Mean 102 Pulse Ox 98 Oxygen Delivery Method Room Air MDM MDM MDM Narrative Medical decision making narrative: 69-year-old female with past medical history of left foot surgery secondary to gangrene, DM2, CAD, HLD presents for evaluation of left foot infection. History taken by patient as well as medical record. See HPI. Patient has diabetic ulcer as well as left foot infection with necrosis and partial toe amputation. Differential diagnosis includes but is not limited to wet gangrene, dry gangrene, cellulitis, osteomyelitis. NS bolus ordered with Zosyn and vancomycin. Infectious workup ordered including x-ray of left foot. Patient offered pain medicine but declined. CBC without leukocytosis. Patient has anemia with hemoglobin 11.4. Platelets count unremarkable. BMP unremarkable except for hyperglycemia of 272. Patient is a known diabetic. No anion gap. Lactic acid unremarkable. CRP elevated at 67.5. ESR normal at 25. X-ray of the left foot was personally reviewed interpreted by me, ED physician. No dislocation or fracture. Soft tissue swelling visualized. Per radiology there is a soft tissue defect with absence of third distal phalanx of majority of third middle phalanx, which may be postsurgical. Consider MRI for clinical suspicion of acute osteomyelitis. Soft tissue swelling the dorsal and plantar aspects of the metatarsal region. Patient will warrant admission. I spoke with podiatry, Dr. Lee. He will see the patient in consult. Patient was discussed with the hospitalist who accepted admission. Impression: 1. Left diabetic foot infection with necrosis 2. Hyperglycemia with history of type 2 diabetes Lab Data Labs: Laboratory Results - last 24 hr 01/18/25 11:50 WBC 9.6 RBC 3.88 L Hgb 11.4 L Hct 32.8 L MCV 84.5 MCH 29.4 MCHC 34.8 RDW Std Deviation 36.9 RDW Coeff of Rosalie 12.1 Plt Count TNP MPV 9.9 Immature Gran % (Auto) 0.400 Neut % (Auto) 71.6 H Lymph % (Auto) 15.9 L [place] % (Auto) 9.4 Eos % (Auto) 1.9 Baso % (Auto) 0.8 Absolute Neuts (auto) 6.8 Absolute Lymphs (auto) 1.52 Nucleated RBC % 0 Platelet Estimate ADEQUATE ESR 25 Sodium 137 Potassium 4.2 Chloride 101 Carbon Dioxide 22.3 Anion Gap 13 BUN 19 Creatinine 0.94 Estim Creat Clear Calc 61.36 Est GFR (MDRD) Non-Af 65 BUN/Creatinine Ratio 20.4 H Glucose 272 H Hemoglobin A1c 9.6 H Lactic Acid 1.5 Calcium 9.0 C-React Prot Ext Range 67.50 H Radiography Diagnostic Testing: Clinical Impression(s) from Imaging Studies Foot X-Ray 01/18/25 11:49 IMPRESSION: There is prior amputation beyond the proximal portion of the 1st metatarsal. There is a soft tissue defect with absence of the 3rd distal phalanx and majority of the 3rd middle phalanx, which may be postsurgical. Consider MRI with and without contrast, or three-phase bone scan if there is clinical suspicion of acute osteomyelitis. There is soft tissue swelling in the dorsal and plantar aspect of the metatarsal region. Reading Location: [facility] Discharge Plan Disposition Disposition: Acute Care [facility] Discharge Date/Time: 01/18/25 14:18
[2025-01-18] MEDS: Piperacil/Tazobactam 4.5 GM in 0.9% Normal Saline (100mL MB+) 100 ML IV (12:48)
[2025-01-18 13:01] LABS: Anion Gap 13 (5-15); BUN 19 mg/dL (4-19); BUN/Creat Ratio 20.4 RATIO (10-20); Carbon Dioxide 22.3 mmol/L (21.0-32.0); Chloride 101 mmol/L (98-108); Creatinine, Serum 0.94 mg/dL (0.70-1.20); EST Glomerular Filtration Rate 65 (>60); Estimated Creatinine Clearance 61.36 ml/min (50-250); Glucose 272 mg/dL (70-99); Potassium 4.2 mmol/L (3.3-5.1); Sodium Level 137 mmol/L (133-145)
[2025-01-18 13:02] LABS: Differential Indicated SCAN CRITERIA MET; Platelet Estimate ADEQUATE (ADEQ)
--- NOTE | 2025-01-18 13:26 | PCM.HP.STD ---
HPI - General General Date of Admission: 01/18/25 Date of Service: 01/18/25 Chief Complaint: Left foot infection HPI Narrative CLAYTON ALVAREZ, is a 69 F who presented to [facility] ED on 01/18/25 with left foot infection. Patient has history of diabetes with prior left foot infection with left great toe amputation back in 2018. She follows with podiatry for several months then but has not seen podiatry now in several years. She is now developed a worsening wound on the dorsum of her left foot with erythema and swelling over the past week or so. She has also noticed that her blood sugars have been running higher than normal. She denies any fevers or chills. Has had some pain in the left foot. In the ED she was hypertensive to the 160s systolic but otherwise afebrile and hemodynamically stable on room air. Labs notable for normal WBC count but elevated CRP of 67. Left x-ray showed soft tissue swelling with concern for osteomyelitis. Case was discussed with podiatry who recommended starting IV antibiotics and admitting under medicine. Hospitalist was then contacted for admission. I saw the patient at bedside in the ED. Patient was sitting back comfortably in bed, conversing normally and in no acute distress. She reported a mild dull left foot pain, similar to previous days. Notes that the pain has been fairly well-controlled with Tylenol. Continues to deny any fevers or chills. No other acute concerns at this time. [facility] Medical History Diabetes Left great toe amputee Home Medications ?Medication ?Instructions ?Recorded ?Last Taken ?Type lisinopril 20 mg tablet 20 mg PO DAILY 11/03/24 01/18/25 History amlodipine 5 mg tablet 5 mg PO DAILY #90 tabs 11/04/24 01/18/25 Rx aspirin 81 mg chewable tablet 81 mg PO BREAKFAST #90 tabs 11/04/24 01/18/25 Rx clopidogrel 75 mg tablet 75 mg PO DAILY #90 tabs 11/04/24 01/18/25 Rx glimepiride 4 mg tablet 4 mg PO DAILY #1 TAB 11/04/24 01/17/25 Rx hydrochlorothiazide 25 mg tablet 25 mg PO DAILY #90 tabs 11/04/24 01/18/25 Rx doxycycline hyclate 100 mg tablet 100 mg PO BID 01/18/25 01/18/25 History Allergy/AdvReac Type Severity Reaction Status Date / Time cephalexin (From Keflex) Allergy Rash Verified 01/18/25 11:12 morphine Allergy Unknown Verified 01/18/25 11:12 Surgical History Stented coronary artery (11/03/24) Social History Smoking Status: Never smoker ROS Constitutional Constitutional: Denies chills, fatigue, fever(s) or weakness Cardiovascular Cardiovascular: Denies chest pain Respiratory/Chest Respiratory/Chest: Denies shortness of breath at rest Gastrointestinal Gastrointestinal: Denies abdominal pain Musculoskeletal Musculoskeletal: Reports other Details: Left foot pain with swelling and erythema Neurologic Neurologic: Denies dizziness, focal weakness or headache(s) Vital Signs Vital Signs Vital Signs: 01/18/25 11:12 Temperature 98.4 F Temperature Source Oral Pulse Rate 97 Respiratory Rate 18 Blood Pressure 167/70 H Blood Pressure Mean 102 Pulse Ox 98 Oxygen Delivery Method Room Air Weight Weight: 93.44 kg Body Mass Index (BMI) 36.5 Physical Exam Const alert, oriented x3 and no apparent distress Constitutional Narrative: Pleasant elderly [place] female, class I obesity, sitting back comfortably in bed, conversing normally, in no acute distress. General Appearance: cooperative and comfortable HEENT normocephalic, head/scalp atraumatic, hearing grossly normal bilaterally, nasal mucous membranes and turbinates normal and moist oral mucous membranes Eyes PERRL, EOMs intact bilaterally and conjunctivae normal Neck full ROM Chest inspection of chest normal Resp normal respiratory effort, normal air movement, no use of accessory muscles and clear to auscultation bilaterally Cardio regular rate, regular rhythm, no murmurs and peripheral pulses 2+ throughout GI normal to inspection, nondistended, normoactive bowel sounds, soft to palpation, non-tender and non-distended Back/Spine normal ROM Extremity Extremity Narrative: Left foot with significant wound on dorsum with erythema and swelling noted. Skin no rashes or lesions noted Psych mental status grossly normal Results Lab / Micro Data 01/18/25 11:50 01/18/25 11:50 Labs: Laboratory Results - last 24 hr 01/18/25 11:50: WBC 9.6, RBC 3.88 L, Hgb 11.4 L, Hct 32.8 L, MCV 84.5, MCH 29.4, MCHC 34.8, RDW Std Deviation 36.9, RDW Coeff of Rosalie 12.1, Plt Count TNP, MPV 9.9, Immature Gran % (Auto) 0.400, Neut % (Auto) 71.6 H, Lymph % (Auto) 15.9 L, [place] % (Auto) 9.4, Eos % (Auto) 1.9, Baso % (Auto) 0.8, Absolute Neuts (auto) 6.8, Absolute Lymphs (auto) 1.52, Nucleated RBC % 0, Platelet Estimate ADEQUATE, ESR 25, Sodium 137, Potassium 4.2, Chloride 101, Carbon Dioxide 22.3, Anion Gap 13, BUN 19, Creatinine 0.94, Estim Creat Clear Calc 61.36, Est GFR (MDRD) Non-Af 65, BUN/Creatinine Ratio 20.4 H, Glucose 272 H, Calcium 9.0, C-React Prot Ext Range 67.50 H Imaging Radiology Impression Foot X-Ray 01/18/25 11:49 IMPRESSION: There is prior amputation beyond the proximal portion of the 1st metatarsal. There is a soft tissue defect with absence of the 3rd distal phalanx and majority of the 3rd middle phalanx, which may be postsurgical. Consider MRI with and without contrast, or three-phase bone scan if there is clinical suspicion of acute osteomyelitis. There is soft tissue swelling in the dorsal and plantar aspect of the metatarsal region. Reading Location: [facility] Assessment & Plan Assessment/Plan (1) Diabetic infection of left foot: PLAN: Plan Patient is a 69-year-old female who presented to [facility] ED on 01/18/2025 with left foot infection. 1. Left diabetic foot infection ? Admit under inpatient status to [facility]. Podiatry, wound care, and PT/OT/case management consulted. Presented with worsening left foot wound with erythema and swelling. CRP elevated at 67. Foot x-ray showed soft tissue swelling with concern for osteomyelitis. S/p excisional debridement down to bone done at the bedside by podiatry on afternoon of 01/18, cultures sent. Will treat with IV vancomycin and Zosyn for now. Per podiatry, patient would benefit from transmetatarsal amputation but surgery will be placed on hold until pulse volume recordings are obtained. Importantly, patient had extensive cardiac stenting done in October as noted below so would preferably wait on procedure until at least 6 months out from stent placement; could discuss this further with cardiology as needed. 2. Type 2 diabetes mellitus with hyperglycemia, diabetic neuropathy ? A1c 9.6% on admit. Diabetes had been better controlled recently with previous A1c's around 7.5%, suspect elevated A1c is largely secondary to infection. Only on home glimepiride 4 mg daily for diabetes. Hold glimepiride. Will treat with sliding scale insulin with meals while inpatient, adjust as needed. 3. History of CAD with recent stenting, hypertension, hyperlipidemia ? Follows with [place] cardiology. Found on left heart cath on 11/03/2024 to have severe two-vessel disease involving the LAD, diagonal vessel and circumflex artery and had extensive stenting done at that time. Hypertensive to the 160s on admit. Continue home aspirin, Plavix, amlodipine, hydrochlorothiazide and lisinopril. 4. Class I obesity ? BMI 33 on admit. Complicates hospital course, care and prognosis. DVT prophylaxis: Lovenox CODE STATUS: Full code, verified Expected disposition: TBD Total clinical time spent by myself addressing the patient's medical issues, reviewing all the data, and collaborating with patient's care team: 75 minutes. Charges/Coding Visit Charges Inpatient E&M: 23063 Init Hosp L3
[2025-01-18 13:40] LABS: Lactic Acid 1.5 mmol/L (0.0-2.0)
[2025-01-18] MEDS: Vancomycin HCl 2,000 MG in 0.9% Normal Saline (500mL Bag) 500 ML 270 MG IV (13:44)
--- NOTE | 2025-01-18 15:03 | PCM.RX.CS ---
Consult Antibiotic Management Pharmacy has been consulted to manage selected antibiotic: Vancomycin Type of Intervention Type of Consult: New start Suspected Infection Suspected Infection: Skin/Soft tissue Prior Doses of Antibiotics Prior Doses of Antibiotics Received/Current Regimen: Vancomycin 2000 mg IV x 1 given 01/17/25 @ 1345 Labs Labs: Sodium 137 mmol/L (133-145) 01/18/25 11:50 Potassium 4.2 mmol/L (3.3-5.1) 01/18/25 11:50 Chloride 101 mmol/L (98-108) 01/18/25 11:50 Carbon Dioxide 22.3 mmol/L (21.0-32.0) 01/18/25 11:50 Anion Gap 13 (5-15) 01/18/25 11:50 BUN 19 mg/dL (4-19) 01/18/25 11:50 Creatinine 0.94 mg/dL (0.70-1.20) 01/18/25 11:50 Est GFR (MDRD) Non-Af 65 (>60) 01/18/25 11:50 BUN/Creatinine Ratio 20.4 RATIO (10-20) H 01/18/25 11:50 Glucose 272 mg/dL (70-99) H 01/18/25 11:50 Dosing Weight Weight used for dosin kg Estimated Creatinine Clearance Estimated Creatinine Clearance: ~ 61 Goal Trough Goal Trough: 15-20 mcg/mL Pharmacy Plan for Drug Dosing Pharmacy Plan for Drug Dosing: Vancomycin 2000 mg IV x 1 followed by 1000 mg Q12H Pharmacy Service will continue to monitor and adjust dosing as required. Follow-Up Labs Follow-Up Labs: Trough: Vancomycin Date/Time Labs Ordered Labs to be done on [date and time ordered]: 01/20/25 @ 0106
[2025-01-18] MEDS: Acetaminophen 325 MG Tablet 650 MG PO ×2 (15:18→21:51)
[2025-01-18] MEDS: Insulin Lispro 100 UNIT/ML INSULN.PEN SC ×2 (16:00→21:50)
[2025-01-18 16:16] LABS: Hemoglobin A1c 9.6 % (<=5.6)
--- NOTE | 2025-01-18 16:42 | PCM.CONS.GEN ---
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 All findings were discussed with the patient. All questions were answered to the patient's satisfaction. Three-view radiographs: (01/18/2025) three-view nonweightbearing left foot radiographs. Bone stock is within normal limits with patient his age. Evidence of soft tissue defect to the lateral aspect of the third digit with ghosting of bone which is concerning for osteomyelitis. Thickened soft tissue envelope to the second digit with soft tissue defect dorsally which tracks to bone. Concern for osteomyelitis. Excisional debridement down to including subcutaneous tissue, fascia muscle and bone to the 2nd and 3rd digit left foot with a number 3 mm dermal curette done without incident. Culture was taken and sent off to microbiology for culture and sensitivity. Betadine paint was applied to the 2nd and 3rd digit as well as to the full-thickness wound to the dorsal foot and covered with dry sterile dressing and reports Saeed bandage was placed to hold her dressing intact. Wound care orders will be given to the wound care nurse to be changed daily. PVRs: Pending Left foot culture: Pending WBC: 0.6 ESR: 25 CRP: 67.50 Glucose: 272 HbA1c (11/04/24): 7.5 HbA1c (01/18/25): 9.6 Medicine: On board, medical management, IV antibiotics vancomycin and Zosyn After long discussion with the patient and at bedside, I did educate the patient that she is suffering from bone infection to the 2nd and 3rd digit. Due to the past history of amputation to the first ray the patient would benefit from transmetatarsal amputation with musculocutaneous flap closure to the left lower extremity. All risk and benefits were discussed with patient great detail. Surgery will be placed on hold until pulse volume recordings are obtained and if there is concern for arterial disease will recommend vascular consultation for evaluation and possible treatment. Will continue daily follow-up and bedside wound care. Please reach out to Dr. Lee with any question or concerns. Thank you for the consultation! (2) Other specified peripheral vascular diseases: (3) Acute painful diabetic polyneuropathy: HPI Consult Data Date of Consult: 01/18/25 HPI Narrative Reason for Consultation: Left foot osteomyelitis HPI Narrative: CLAYTON HERMOSILLOMISTYBARBARA, is a 69 F with a past medical history of left foot surgery secondary to dry gangrene, diabetes mellitus type 2 peripheral neuropathy, coronary artery disease, hyperlipidemia presenting to [facility] emergency room for evaluation of left foot second digit and third digit infection. Patient states that this has been going on for approximately a few months but has not followed up with a foot ankle specialist since then. She has had previous history and 2018 with an outside provider but does not follow-up regularly. She states that she notices this colorization and a wound to the dorsal aspect of the left foot approximately 1 month ago. She states that the gangrene to the distal aspect of the left second digit started approximately 2 weeks ago as well as the laceration with exposed bone to the third digit. No treatment thus far. She is diabetic and suffers from neuropathy. Blood sugar is not well-maintained. She denies any trauma. Denies constitutional symptoms. No other pedal complaints at this time. [facility] Medical History Diabetes Left great toe amputee Home Medications ?Medication ?Instructions ?Recorded ?Last Taken ?Type lisinopril 20 mg tablet 20 mg PO DAILY 11/03/24 01/18/25 History amlodipine 5 mg tablet 5 mg PO DAILY #90 tabs 11/04/24 01/18/25 Rx aspirin 81 mg chewable tablet 81 mg PO BREAKFAST #90 tabs 11/04/24 01/18/25 Rx clopidogrel 75 mg tablet 75 mg PO DAILY #90 tabs 11/04/24 01/18/25 Rx glimepiride 4 mg tablet 4 mg PO DAILY #1 TAB 11/04/24 01/17/25 Rx hydrochlorothiazide 25 mg tablet 25 mg PO DAILY #90 tabs 11/04/24 01/18/25 Rx doxycycline hyclate 100 mg tablet 100 mg PO BID 01/18/25 01/18/25 History Allergy/AdvReac Type Severity Reaction Status Date / Time cephalexin (From Keflex) Allergy Rash Verified 01/18/25 11:12 morphine Allergy Unknown Verified 01/18/25 11:12 Surgical History Stented coronary artery (11/03/24) Social History Smoking Status: Never smoker Physical Exam Narrative Vascular: DP pulses not palpable, PT pulses faintly palpable to the left lower extremity. Doppler shows no evidence of audible AT and DP. Doppler shows weak monophasic pulse to the posterior tibial artery to left lower extremity. Evidence of blanchable erythema to the distal toes to the level of the midfoot. Skin temperature is warm to warm from proximal ankle to distal digits left lower extremity. Focal increase noted to the left foot. Neurological: Light touch is intact. Patient does respond to painful stimuli. Dermatological: Evidence of full-thickness wound to the dorsal aspect of the left foot with exposed tendon. No drainage appreciated. Evidence of full-thickness wound to the dorsal aspect of the PIPJ of the left second digit with positive probe to bone. Evidence of laceration to the lateral aspect of the third digit with positive probe to bone. Musculoskeletal: Mild pain to palpation of the full-thickness wound to the 2nd and 3rd digit left foot. Mild pain on palpation to full-thickness wound to the dorsal aspect the left foot. No pain with calf pressure. Const alert, oriented x3 and no apparent distress Lab / Micro Data 01/18/25 11:50 01/18/25 11:50 Labs: Laboratory Results - last 24 hr 01/18/25 11:50: WBC 9.6, RBC 3.88 L, Hgb 11.4 L, Hct 32.8 L, MCV 84.5, MCH 29.4, MCHC 34.8, RDW Std Deviation 36.9, RDW Coeff of Rosalie 12.1, Plt Count TNP, MPV 9.9, Immature Gran % (Auto) 0.400, Neut % (Auto) 71.6 H, Lymph % (Auto) 15.9 L, [place] % (Auto) 9.4, Eos % (Auto) 1.9, Baso % (Auto) 0.8, Absolute Neuts (auto) 6.8, Absolute Lymphs (auto) 1.52, Nucleated RBC % 0, Platelet Estimate ADEQUATE, ESR 25, Sodium 137, Potassium 4.2, Chloride 101, Carbon Dioxide 22.3, Anion Gap 13, BUN 19, Creatinine 0.94, Estim Creat Clear Calc 61.36, Est GFR (MDRD) Non-Af 65, BUN/Creatinine Ratio 20.4 H, Glucose 272 H, Hemoglobin A1c 9.6 H, Lactic Acid 1.5, Calcium 9.0, C-React Prot Ext Range 67.50 H Imaging Radiology Impression Foot X-Ray 01/18/25 11:49 IMPRESSION: There is prior amputation beyond the proximal portion of the 1st metatarsal. There is a soft tissue defect with absence of the 3rd distal phalanx and majority of the 3rd middle phalanx, which may be postsurgical. Consider MRI with and without contrast, or three-phase bone scan if there is clinical suspicion of acute osteomyelitis. There is soft tissue swelling in the dorsal and plantar aspect of the metatarsal region. Reading Location: [facility]
[2025-01-18 16:49] LABS: Bedside Glucose 194 mg/dL (74-106)
--- NOTE | 2025-01-18 17:30 | ART_ITS ---
Reason For Study Reason For Study: ULCER Procedure A bilateral lower extremity continuous wave Doppler with analog waveform analysis,segmental pressures,and ankle brachial indexes without exercise. Technically difficult study. Left Segmental Pressures Left brachial= N/A D/T IVmmHg. Left thigh = 77mmHg. Left calf = 55mmHg. Left posterior tibial artery = 37mmHg. Left dorsalis pedis artery = 60mmHg. The left posterior tibial artery waveforms are monophasic. The left dorsalis pedis waveforms are monophasic. Right Segmental Pressures Right brachial= 169mmHg. Right high thigh = >254mmHg. Right calf = 151mmHg. Right posterior tibial artery = 94mmHg. Right dorsalis pedis artery = 117mmHg. The right posterior tibial artery waveforms are monophasic. The right dorsalis pedis waveforms are monophasic. Indices The right resting ankle brachial index is 0.69. The right ankle brachial index by the posterior tibial artery is 0.56. The right ankle brachial index by the dorsalis pedis is 0.69. The left resting ankle brachial index is 0.36. The left ankle brachial index by the posterior tibial artery is 0.22. The left ankle brachial index by the dorsalis pedis is 0.36. VL/Lower Ext Art Exam w/o Exercis Interpretation Summary Right BREEZY 0.69, moderate arterial insufficiency. Doppler/PVR waveforms and segm ental pressures reveal infrapopliteal disease. Left BREEZY 0.36, severe arterial insufficiency. Doppler/PVR waveforms and segment al pressures reveal aorto-iliac and proximal femoral disease Ordering Physician: Jesus^Cristobal^^^DPM Referring Physician: Teresa Millan Performed By: Estela Ritchie RVShekhar, RDCS
[2025-01-18] MEDS: 0.9% Normal Saline (250mL Bag) 250 ML 15 ML IV (18:25)
[2025-01-18] MEDS: Piperacil/Tazobactam 3.375 GM in 0.9% Normal Saline (50mL MB+) 50 ML IV (21:50)
[2025-01-19] VITALS (8 sets, daily range): BP systolic 147–195; BP diastolic 46–73; PULSE 73–87; RESP 16–18; TEMP 36.6–37.3; O2SAT 94–97
[2025-01-19 00:35] LABS: Bedside Glucose 231 mg/dL (74-106)
[2025-01-19] MEDS: Vancomycin IV 1,000 MG/200 ML BAG 200 MG IV ×2 (03:00→14:51)
[2025-01-19] MEDS: Acetaminophen 325 MG Tablet 650 MG PO ×2 (07:02→13:42)
[2025-01-19] MEDS: Piperacil/Tazobactam 3.375 GM in 0.9% Normal Saline (50mL MB+) 50 ML IV ×3 (07:02→23:22)
[2025-01-19 07:18] LABS: Hematocrit 30.2 % (37-47); Hemoglobin 10.6 g/dL (12.0-15.0); Mean Corp Hgb Conc 35.1 g/dL (32-36); Mean Corpuscular Hgb 29.2 pg (27.0-32.0); Mean Corpuscular Volume 83.2 fL (81-99); Platelet Count 322 K/mm3 (150-450); RBC Distribution Width CV 12.1 % (11.6-14.6); RBC Distribution Width SD 36.9 fl (35.1-43.9); Red Blood Count 3.63 M/mm3 (4.2-5.4); White Blood Count 9.2 K/mm3 (4.4-11.0)
[2025-01-19 07:21] LABS: Bedside Glucose 140 mg/dL (74-106)
[2025-01-19 07:41] LABS: Anion Gap 13 (5-15); BUN 12 mg/dL (4-19); BUN/Creat Ratio 14.9 RATIO (10-20); Calcium,Total 8.7 mg/dL (7.6-11.0); Carbon Dioxide 22.9 mmol/L (21.0-32.0); Chloride 104 mmol/L (98-108); EST Glomerular Filtration Rate 79 (>60); Estimated Creatinine Clearance 76.44 ml/min (50-250); Glucose 135 mg/dL (70-99); Potassium 3.4 mmol/L (3.3-5.1); Sodium Level 139 mmol/L (133-145)
--- NOTE | 2025-01-19 09:06 | WOUNDNOTE ---
wound photo: left foot
--- NOTE | 2025-01-19 09:06 | WOUNDNOTE ---
wound photo: left foot
[2025-01-19] MEDS: Clopidogrel Bisulfate 75 MG Tablet PO (09:57)
[2025-01-19] MEDS: Enoxaparin 40 MG/0.4 ML Syringe SC (09:57)
[2025-01-19] MEDS: hydroCHLOROthiazide 25 MG Tablet PO (09:57)
[2025-01-19] MEDS: amLODIPine 5 MG Tablet PO (09:57)
[2025-01-19] MEDS: Aspirin 81 MG TAB.CHEW PO (09:57)
[2025-01-19] MEDS: Lisinopril 20 MG Tablet PO (09:57)
--- NOTE | 2025-01-19 11:15 | CASEMGMT ---
SEKOU SPRAGUE Assessment: Face to Face with pt for initial transition planning/care coordination assessment. SEKOU SPRAGUE introduced self and role at [facility], pt voices understanding and consents to assessment. Pt is A&O x4 and answers all questions appropriately at this time. Pt sitting up in bed in no distress with at bedside. Care providers, pharmacy, and demographics verified/updated. Admitting Dx: L foot infection Strata Score: 2 PCP:Yana Specialists:SIA, cardio Preferred Pharmacy: [facility] Insurance: Self Pay Prescription Benefit: no LNOK: Vanessa Kamara, friend Living Arrangements: Pt lives in a two story home with 4 steps to enter with her . Pt reports she is I in ADL/IADLs except her gets groceries. Pt denies concerns at home. Transportation: Pt hires drivers if need be. Pt wishes to have [facility] van transport home if available. Pt states she can hire if the van is not available. DME:BP cuff, w/c, cane, walker, BGM with sufficient strips and lancets HHC/SNF: Pt has had HHC in the past but cannot recall the name of the agency. Pt denies SNF stays. Pt states no concerns with going home at time of dc. Pt reports she has been typically using a w/c for mobility. Pt states she can perform wound care if need be. Pt to have vascular studies then proceed with surgery per report. Pt states no further concerns/needs. CM to follow. Advised pt to ask CM if any further questions/concerns/needs arise, voices understanding. Pt Goal: Home Plan: Home pending course of hospitalization and therapy Ivy SAPP CM
[2025-01-19 11:24] LABS: Bedside Glucose 297 mg/dL (74-106)
[2025-01-19] MEDS: Insulin Lispro 100 UNIT/ML INSULN.PEN SC ×3 (12:29→22:32)
--- NOTE | 2025-01-19 13:35 | PN_ITS ---
Subjective Subjective Patient seen and examined with her nurse by her bedside. She had no active complaints. She denied any pain in her right foot. Foot had been dressed by pain management today. Podiatry on board. She had the arterial studies done today. Review of systems otherwise negative. Objective Data Objective Data Vital Signs: Vital Signs Temp Pulse Resp BP Pulse Ox O2 Del Method 97.8 F 82 16 160/46 H 96 Room Air 01/19/25 09:54 01/19/25 09:54 01/19/25 09:54 01/19/25 09:54 01/19/25 09:54 01/19/25 09:54 Oxygen Delivery Method Room Air Weight: 206 lb Body Mass Index (BMI) 33.2 Intake & Output: Intake and Output for Last 24 Hours 01/17/25 01/18/25 01/19/25 23:59 23:59 23:59 Intake Total 1989 1100 / 1100 Balance 1989 1100 / 1100 Lab / Micro Data 01/19/25 06:55 01/19/25 06:55 Labs: Laboratory Results - last 24 hr 01/18/25 11:50: Hemoglobin A1c 9.6 H, Lactic Acid 1.5 01/18/25 15:23: POC Glucose 194 H 01/18/25 21:47: POC Glucose 231 H 01/19/25 06:42: POC Glucose 140 H 01/19/25 06:55: WBC 9.2, RBC 3.63 L, Hgb 10.6 L, Hct 30.2 L, MCV 83.2, MCH 29.2, MCHC 35.1, RDW Std Deviation 36.9, RDW Coeff of Rosalie 12.1, Plt Count 322, MPV 9.0, Sodium 139, Potassium 3.4, Chloride 104, Carbon Dioxide 22.9, Anion Gap 13, BUN 12, Creatinine 0.80, Estim Creat Clear Calc 76.44, Est GFR (MDRD) Non-Af 79, BUN/Creatinine Ratio 14.9, Glucose 135 H, Calcium 8.7 01/19/25 11:05: POC Glucose 297 H Micro: Microbiology 01/18/25 17:19 Wound - Left Foot Wound Culture - Preliminary GNR lactose police chief deputy Gram positive organism Radiography Diagnostic Testing: Radiology Impression Extremity Arterial Study 01/18/25 17:30 Interpretation Summary Right BREEZY 0.69, moderate arterial insufficiency. Doppler/PVR waveforms and segmental pressures reveal infrapopliteal disease. Left BREEZY 0.36, severe arterial insufficiency. Doppler/PVR waveforms and segmental pressures reveal aorto-iliac and proximal femoral disease Ordering Physician: Jesus^Cristobal^^^DPM Referring Physician: Teresa Millan Performed By: Estela Ritchie RVShekhar, RDCS Physical Exam Const alert, oriented x3 and no apparent distress Constitutional Narrative: class II obesity General Appearance: cooperative HEENT normocephalic, head/scalp atraumatic, moist oral mucous membranes and oropharynx normal Eyes PERRL and EOMs intact bilaterally Neck supple and no JVD Lymph Lymphatic: no lymphedema noted Resp normal respiratory effort, normal air movement and clear to auscultation bilaterally Cardio regular rate, regular rhythm, S1 normal heart sound, S2 normal heart sound and no murmurs GI normal to inspection, nondistended, normoactive bowel sounds, soft to palpation, non-tender and non-distended Extremity Extremity Narrative: right foot wrapped in bandage General Extremity: no tenderness to palpation of joints or extremities Skin Skin Narrative: as under extremities Neuro CN's II-XII intact bilaterally Motor Exam: general weakness Psych thought process normal and cooperative Appearance: appropriate Assessment & Plan Assessment/Plan (1) Diabetic infection of left foot: (2) Acute painful diabetic polyneuropathy: PLAN: Plan #Left diabetic foot infection * Was admitted with a complaint of worsening left foot wound with redness and swelling. CRP was elevated. * X-ray of the left foot shows soft tissue swelling with concern for osteomyelitis. He had bedside debridement of the foot by podiatry on 01/18/2025. Cultures sent. Currently on IV vancomycin and Zosyn. * Arterial studies done today showed severe arterial insufficiency in the left lower extremity with ankle-brachial index of 0.36 and moderate arterial insufficiency in right lower extremity with ankle-brachial index of 0.65. * * #TYpe 2 diabetes mellitus * A1c is 9.6. On glimepiride which is on hold. Insulin sliding scale. Accu- Cheks ACHS. #History of CAD: * Cardiac stents placed in October of this year. * Had two-vessel disease per Cardiac cath involving the LAD, diagonal vessel and circumflex artery and had stents placed then. * On aspirin, Plavix # Hypertension: On amlodipine, hydrochlorothiazide and lisinopril Class I obesity: BMI 33. Complicates acute care, expected recovery and prognosis #DVT prophylaxis: Lovenox Charges/Coding Visit Charges Inpatient E&M: 19609 Subs Hosp L2
[2025-01-19] MEDS: hydrALAZINE 20 MG/ML Vial 10 MG IV (13:43)
[2025-01-19] MEDS: 0.9% Saline Lock 10 ML Syringe IV ×2 (13:43→14:51)
--- NOTE | 2025-01-19 14:19 | CT_ITS ---
PROCEDURE: CTA ABD W/RUNOFF W/WO CONTRAST 01/19/2025 REASON FOR EXAM: ATHEROSCLEROSIS WITH GANGRENE LEFT LOWER EXTREMITY TECHNIQUE: CTA imaging of the abdomen and pelvis with intravenous contrast. Multiplanar and multisequence images were obtained. 3D post processing was performed CONTRAST: 100 mL Isovue 370 One or more dose reduction techniques were used (e.g., Automated exposure control, adjustment of the mA and/or kV according to patient size, use of iterative reconstruction technique). RADIATION DOSE SUMMARY: CTDlvol: 9.5 mGy DLP: 1569 mGycm COMPARISON: None FINDINGS: Aorta: Mild mixed calcified and soft plaque identified. No abdominal aortic aneurysm. Celiac: Unremarkable SMA: Hypodensity narrowing the SMA (series 2, image 57), which may be at least partially artifactual as there is motion in this location. ALIS : Moderate mixed calcified and soft plaque identified. No high grade stenosis. Right Renal: Mild mixed calcified and soft plaque identified. Left Renal: Unremarkable RIGHT Iliac Arteries: Common Iliac: Moderate mixed calcified and soft plaque identified. No high grade stenosis. External Iliac: Moderate mixed calcified and soft plaque identified. No high grade stenosis. Internal Iliac: Unremarkable LEFT Iliac Arteries: Common Iliac: Moderate mixed calcified and soft plaque identified. No high grade stenosis. External Iliac: Moderate mixed calcified and soft plaque identified. No high grade stenosis. Internal Iliac: Unremarkable RIGHT Lower Extremity: Common Femoral: Moderate mixed calcified and soft plaque identified. No high grade stenosis. Superficial Femoral: Moderate mixed calcified and soft plaque results in up to approximately 70% narrowing (series 2, image 167) Deep Femoral: Mild mixed calcified and soft plaque identified. Popliteal: Moderate mixed calcified and soft plaque resulting in approximately 70% luminal narrowing. Anterior Tibial: Mild mixed calcified and soft plaque identified. Tibioperoneal Trunk: Moderate mixed calcified and soft plaque identified. Posterior Tibial: Scattered non-opacification, though is visualized at the level of the ankle Peroneal: Predominantly opacified Dorsalis Pedis: Opacified LEFT Lower Extremity: Common Femoral: Mild mixed calcified and soft plaque identified. Superficial Femoral: Non-opacification throughout the near entirety Deep Femoral: Mild mixed calcified and soft plaque identified. Popliteal: There is a stent present which appears to be opacified within, though with approximately 60% luminal narrowing Anterior Tibial: Not well opacified distal to the level of the mid ellison Tibioperoneal Trunk: Moderate mixed calcified and soft plaque identified with approximately 60% luminal narrowing. Posterior Tibial: Not well opacified distal to the level of the mid ellison Peroneal: Unremarkable Dorsalis Pedis: Opacifies via the peroneal artery Other Findings: Moderate to severe multivessel coronary calcification. Cholelithiasis. CT/CTA Abd w/Runoff W/WO Contrast IMPRESSION: 1. Extensive peripheral arterial disease, as described in detail above. Most notably, there is occlusion of the near entirety of the left superficial femoral artery, and high-grade narrowing of the right s uperficial femoral and bilateral popliteal arteries. Recommend Vascular Surgery and/or Interventional Radiology consultat ion. 2. [id number] coronary calcifications. 3. Cholelithiasis. Reading Location: [id number]
--- NOTE | 2025-01-19 16:19 | PCM.PN.SRG ---
Subjective Subjective Mrs. Menezes is a 69-year-old diabetic female seen at bedside today for follow-up evaluation of cellulitis, dry gangrene and peripheral arterial disease left extremity. She is getting dressing changes by wound care nurse. Will be discussing her PVRs today. Vascular surgery has been consulted. She denies any acute events overnight. She denies any pain to left lower extremity. Denies trauma. Denies constitutional symptoms. No other pedal complaints at this time. Objective Data Objective Data Vital Signs: Vital Signs Temp Pulse Resp BP Pulse Ox O2 Del Method 98 F 86 18 170/60 H 97 Room Air 01/19/25 13:35 01/19/25 14:09 01/19/25 13:35 01/19/25 14:09 01/19/25 14:01/19/25 14:09 Oxygen Delivery Method Room Air Weight: 93.44 kg Body Mass Index (BMI) 33.2 Intake & Output: Intake and Output for Last 24 Hours 01/17/25 01/18/25 01/19/25 23:59 23:59 23:59 Intake Total 1989 1550 / 1550 Balance 1989 1550 / 1550 Lab / Micro Data 01/19/25 06:55 01/19/25 06:55 Labs: Laboratory Results - last 24 hr 01/18/25 15:23: POC Glucose 194 H 01/18/25 21:47: POC Glucose 231 H 01/19/25 06:42: POC Glucose 140 H 01/19/25 06:55: WBC 9.2, RBC 3.63 L, Hgb 10.6 L, Hct 30.2 L, MCV 83.2, MCH 29.2, MCHC 35.1, RDW Std Deviation 36.9, RDW Coeff of Rosalie 12.1, Plt Count 322, MPV 9.0, Sodium 139, Potassium 3.4, Chloride 104, Carbon Dioxide 22.9, Anion Gap 13, BUN 12, Creatinine 0.80, Estim Creat Clear Calc 76.44, Est GFR (MDRD) Non-Af 79, BUN/Creatinine Ratio 14.9, Glucose 135 H, Calcium 8.7 01/19/25 11:05: POC Glucose 297 H Micro: Microbiology 01/18/25 17:19 Wound - Left Foot Gram Stain - Final 01/18/25 17:19 Wound - Left Foot Wound Culture - Preliminary GNR lactose formulator compounder Gram positive organism Radiography Diagnostic Testing: Radiology Impression Extremity Arterial Study 01/18/25 17:30 Interpretation Summary Right BREEZY 0.69, moderate arterial insufficiency. Doppler/PVR waveforms and segmental pressures reveal infrapopliteal disease. Left BREEZY 0.36, severe arterial insufficiency. Doppler/PVR waveforms and segmental pressures reveal aorto-iliac and proximal femoral disease Ordering Physician: Jesus^Cristobal^^^DPM Referring Physician: Teresa Millan Performed By: Estela Ritchie RVShekhar, RDCS Physical Exam Narrative Neurovascular status is unchanged. Blanchable erythema appreciated left lower extremity. Dry gangrene to the 2nd and 3rd digit with exposed bone to the left foot. Stable eschar to the dorsal aspect of the left dorsal foot. Mild pain to palpation to the left 2nd and 3rd digit. No pain with calf compression. 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 All findings were discussed with the patient. All questions were answered to the patient satisfaction. Review of the patient's arterial studies show right infrapopliteal disease and left aorto-iliac and proximal femoral disease and decreased ABIs when measured. Right BREEZY is 0.69, moderate arterial insufficiency.. Left BREEZY 0.36, severe arterial insufficiency. Findings were discussed with vascular surgery who will be consulted for evaluation and recommendations. Cultures: Gram-negative lactose formulator compounder, gram-positive organism Medicine: On board, medical management, IV Vanco/Zosyn Vascular surgery: Consult pending Long discussion with the patient and her today at bedside, still recommending transmetatarsal amputation with tendo Achilles lengthening to left lower extremity. After discussion they are understanding and agreeable. He will need vascular clearance and recommendation prior to any surgical intervention. Will continue wound care dressing per wound nurse as ordered. Continue strict blood sugar control. Please reach out to Dr. Lee of any questions or concerns. (2) Other specified peripheral vascular diseases: (3) Acute painful diabetic polyneuropathy: (4) Diabetic infection of left foot:
[2025-01-19 16:51] LABS: Bedside Glucose 219 mg/dL (74-106)
--- NOTE | 2025-01-19 17:00 | VDLE_ITS ---
Reason For Study Reason For Study: Pre op planning RIGHT LEFT GSV prox thigh, 0.25 x 0.26 cm. GSV prox thigh, 0.47 x 0.48 cm. GSV mid thigh, 0.22 x 0.24 cm. GSV mid thigh, 0.40 x 0.45 cm. GSV distal thigh, unable to visualize. GSV distal thigh, 0.40 x 0.55 cm, tortuous. GSV knee, 0.16 x 0.17 cm. GSV knee, 0.45 x 0.48 cm. GSV prox calf, 0.12 x 0.14 cm. GSV prox calf, 0.52 x 0.55 cm. GSV mid calf, 0.11 x 0.12 cm. GSV mid calf, 0.49 x 0.50 cm. GSV distal calf, 0.15 x 0.16 cm. GSV distal calf, 0.39 x 0.37 cm. SSV prox, 0.21 x 0.19 cm. SSV prox, 0.36 x 0.39 cm. SSV mid, 0.21 x 0.24 cm. SSV mid, 0.35 x 0.38 cm. SSV distal, 0.13 x 0.13 cm SSV distal, 0.25 x 0.32 cm GSV and SSV are compressible. GSV and SSV are compressible. Procedure This is a venous duplex using B-mode, color flow and spectral Doppler. Exam performed portable in patient room. VL/Saphenous Vein Mapping, Bilat Interpretation Summary Bilateral great saphenous veins patent with measurements above. Bilateral small saphenous veins patent with measurements above. Ordering Physician: Mahogany Schmidt Referring Physician: Teresa Millan Performed By: Bobbi Hunter RVT
--- NOTE | 2025-01-19 17:46 | EX.PCM.CON.S ---
Assessment & Plan Assessment/Plan (1) Atherosclerosis of left lower extremity with gangrene: PLAN: LEAS demonstrated L BREEZY 0.36 with monophasic waveforms. CTA Abd/Pelvis with runoff was obtained, images reviewed. She has a long L SFA occlusion with some distal reconstitution though infrapopliteal vessels not well visualized. I discussed these findings in detail with patient and her who was at bedside. With her diabetic status, she does not have sufficient inflow to expect to heal her wounds or TMA. We discussed that this occlusion may or may not be amenable to endovascular intervention, it is possible she would require open bypass. Recommend LLE angiogram with plan to attempt to intervene upon the SFA occlusion if possible and otherwise with diagnostic purpose to determine target vessel for bypass should endovascular intervention be unsuccessful. The procedure details including goals/benefits, risks, and recovery were discussed with patient and her . She is agreeable to proceed. Will plan for LLE angiogram with possible intervention in the cardiac cath technician tomorrow afternoon. NPO after midnight. OK to continue ASA and Plavix. Also placed order for bilateral saphenous vein mapping to be completed for pre-operative planning in the event bypass is determined to be necessary. HPI Consult Data Date of Consult: 01/19/25 HPI Narrative HPI Narrative: CLAYTON ALVAREZ, is a 69 F who presented to the [facility] ER with infection of L foot wounds and found to have associated osteomyelitis for which she was admitted for further management. She currently has a wound to the dorsum and dry eschars of the L 2nd, 3rd, and 4th toes. She has a history of prior L 1st toe amputation due nonhealing ulceration in 2018, per chart review she also had ulceration on the dorsum of her foot at that time similar to current presentation. She reports that in association with that wound she was found to have LLE arterial disease which was treated around the same time. On chart review, I see that Dr. Cm performed L popliteal stent and angioplasty L anterior tibial in 2017. She reports the amputation site did subsequently heal; she reports she has had some increased pain in the foot ever since. However, over the last year she noticed increased pain into her foot with walking which would be relieved at rest; she did not have distinct rest pain but felt that her neuropathy pains have been worse in the left foot as well for the last few months. She reports the current wounds started about 2 months ago, but got much worse just 2 weeks ago when she started noticing increased redness on the top of the foot and black discoloration in the toes. She reports between 2018 and current episode she has had other wounds on her toes on and off which she seemed to get mostly healed each time without other intervention. She has never smoked. She is diabetic with associated neuropathy, A1c on admission 9.6. She recently underwent coronary artery stenting 11/03/24 and is on DAPT with ASA and Plavix. [facility] Medical History Diabetes Left great toe amputee Home Medications ?Medication ?Instructions ?Recorded ?Last Taken ?Type lisinopril 20 mg tablet 20 mg PO DAILY 11/03/24 01/18/25 History amlodipine 5 mg tablet 5 mg PO DAILY #90 tabs 11/04/24 01/18/25 Rx aspirin 81 mg chewable tablet 81 mg PO BREAKFAST #90 tabs 11/04/24 01/18/25 Rx clopidogrel 75 mg tablet 75 mg PO DAILY #90 tabs 11/04/24 01/18/25 Rx glimepiride 4 mg tablet 4 mg PO DAILY #1 TAB 11/04/24 01/17/25 Rx hydrochlorothiazide 25 mg tablet 25 mg PO DAILY #90 tabs 11/04/24 01/18/25 Rx doxycycline hyclate 100 mg tablet 100 mg PO BID 01/18/25 01/18/25 History Allergy/AdvReac Type Severity Reaction Status Date / Time cephalexin (From Keflex) Allergy Rash Verified 01/18/25 11:12 morphine Allergy Unknown Verified 01/18/25 11:12 Surgical History Stented coronary artery (11/03/24) Social History Smoking Status: Never smoker Physical Exam Const alert, oriented x3 and no apparent distress General Appearance: cooperative and comfortable HEENT normocephalic, head/scalp atraumatic, hearing grossly normal bilaterally, external ears normal and external nose normal Eyes EOMs intact bilaterally General Eye: normal appearance of both eyes Neck General: normal visual inspection and trachea midline Resp normal respiratory effort, normal air movement, no retractions and no use of accessory muscles Effort and Inspection: able to speak in complete sentences; Negative for labored, grunting or stridor Cardio Rate: regular rate Rhythm: regular rhythm Extremity Extremity Narrative: L foot with wound dressings C/D/I, precluded vascular exam. Skin Wounds: wounds noted Wound Narrative: Reviewed wound pictures in chart; L dorsal foot wound, dry eschar to the L 2nd, 3rd, 4th toes. Neuro oriented x3, moves all extremities and no focal motor deficits Speech: speech normal Psych mental status grossly normal Appearance: grossly normal Attitude: calm and engaged Activity / Motor Behavior: appropriate eye contact Speech: normal speech Mood & Affect: euthymic mood Lab / Micro Data 01/19/25 06:55 01/19/25 06:55 Labs: Laboratory Results - last 24 hr 01/18/25 21:47: POC Glucose 231 H 01/19/25 06:42: POC Glucose 140 H 01/19/25 06:55: WBC 9.2, RBC 3.63 L, Hgb 10.6 L, Hct 30.2 L, MCV 83.2, MCH 29.2, MCHC 35.1, RDW Std Deviation 36.9, RDW Coeff of Rosalie 12.1, Plt Count 322, MPV 9.0, Sodium 139, Potassium 3.4, Chloride 104, Carbon Dioxide 22.9, Anion Gap 13, BUN 12, Creatinine 0.80, Estim Creat Clear Calc 76.44, Est GFR (MDRD) Non-Af 79, BUN/Creatinine Ratio 14.9, Glucose 135 H, Calcium 8.7 01/19/25 11:05: POC Glucose 297 H 01/19/25 16:20: POC Glucose 219 H Micro: Microbiology 01/18/25 17:19 Wound - Left Foot Gram Stain - Final 01/18/25 17:19 Wound - Left Foot Wound Culture - Preliminary GNR lactose filler in Gram positive organism Imaging Radiology Impression Extremity Arterial Study 01/18/25 17:30 Interpretation Summary Right BREEZY 0.69, moderate arterial insufficiency. Doppler/PVR waveforms and segmental pressures reveal infrapopliteal disease. Left BREEZY 0.36, severe arterial insufficiency. Doppler/PVR waveforms and segmental pressures reveal aorto-iliac and proximal femoral disease Ordering Physician: Jesus^Cristobal^^^BETZY Referring Physician: Teresa Millan Performed By: Estela Ritchie RVT, [facility] Charges/Coding Visit Charges Inpatient E&M: 62928 Init Hosp L2
[2025-01-20] VITALS (7 sets, daily range): BP systolic 124–183; BP diastolic 63–79; PULSE 46–77; RESP 16–18; TEMP 36.9–37.1; O2SAT 94–100
[2025-01-20 00:22] LABS: Bedside Glucose 246 mg/dL (74-106)
[2025-01-20] MEDS: Acetaminophen 325 MG Tablet 650 MG PO (01:43)
[2025-01-20 02:37] LABS: Vancomycin, Trough Level 14.9 ug/mL (5.0-15.0)
--- NOTE | 2025-01-20 02:48 | PHA.PHARE_ITS ---
Consult Antibiotic Management Pharmacy has been consulted to manage selected antibiotic: Vancomycin Type of Intervention Type of Consult: Follow-up Suspected Infection Suspected Infection: Skin/Soft tissue Labs Labs: Sodium 139 mmol/L (133-145) 01/19/25 06:55 Potassium 3.4 mmol/L (3.3-5.1) 01/19/25 06:55 Chloride 104 mmol/L (98-108) 01/19/25 06:55 Carbon Dioxide 22.9 mmol/L (21.0-32.0) 01/19/25 06:55 Anion Gap 13 (5-15) 01/19/25 06:55 BUN 12 mg/dL (4-19) 01/19/25 06:55 Creatinine 0.80 mg/dL (0.70-1.20) 01/19/25 06:55 Est GFR (MDRD) Non-Af 79 (>60) 01/19/25 06:55 BUN/Creatinine Ratio 14.9 RATIO (10-20) 01/19/25 06:55 Glucose 135 mg/dL (70-99) H 01/19/25 06:55 Vancomycin Trough 14.9 ug/mL (5.0-15.0) 01/20/25 01:37 Microbiology Microbiology: Microbiology 01/18/25 17:19 Wound - Left Foot Gram Stain - Final 01/18/25 17:19 Wound - Left Foot Wound Culture - Preliminary GNR lactose tip out worker Gram positive organism Dosing Weight Weight used for dosin kg Estimated Creatinine Clearance Estimated Creatinine Clearance: 76 Goal Trough Goal Trough: 15-20 mcg/mL Pharmacy Plan for Drug Dosing Pharmacy Plan for Drug Dosing: Vancomycin trough level of 14.9, drawn 10.75hrs post-dose, was right at the edge of the target range of 15-20. Will continue dosing at 1000mg q12h, and will draw another trough in two days. Pharmacy Service will continue to monitor and adjust dosing as required. Follow-Up Labs Follow-Up Labs: Trough: Vancomycin Date/Time Labs Ordered Labs to be done on [date and time ordered]: 01/22/25 @013
[2025-01-20] MEDS: Vancomycin IV 1,000 MG/200 ML BAG 200 MG IV ×2 (03:18→13:16)
[2025-01-20 05:39] LABS: Absolute Neutrophil Count 5.7 X10^3/uL (2.0-7.7); Basophil# 0.05 X10^3/uL; Basophil% 0.6 % (0-1); Eosinophils% 2.3 % (0-5); Hematocrit 32.4 % (37-47); Hemoglobin 11.4 g/dL (12.0-15.0); Lymphocyte % 21.9 % (19-41); Mean Corp Hgb Conc 35.2 g/dL (32-36); Mean Corpuscular Hgb 29.1 pg (27.0-32.0); Mean Corpuscular Volume 82.7 fL (81-99); Mean Platelet Vol. 8.7 fl (6.2-12.0); Monocyte# 0.77 X10^3/uL; Monocyte% 8.9 % (0-10); NRBC Flagged by Analyzer 0 % (0-5); Neutrophil # 5.72 X10^3/uL (2.7-7.7); Neutrophil % 65.7 % (47-70); Platelet Count 336 K/mm3 (150-450); RBC Distribution Width CV 12.2 % (11.6-14.6); RBC Distribution Width SD 36.5 fl (35.1-43.9); Red Blood Count 3.92 M/mm3 (4.2-5.4); White Blood Count 8.7 K/mm3 (4.4-11.0)
[2025-01-20 06:17] LABS: Anion Gap 13 (5-15); BUN 17 mg/dL (4-19); BUN/Creat Ratio 20.3 RATIO (10-20); Calcium,Total 9.3 mg/dL (7.6-11.0); Carbon Dioxide 22.8 mmol/L (21.0-32.0); Chloride 102 mmol/L (98-108); Creatinine, Serum 0.82 mg/dL (0.70-1.20); EST Glomerular Filtration Rate 77 (>60); Estimated Creatinine Clearance 74.57 ml/min (50-250); Glucose 184 mg/dL (70-99); Potassium 3.4 mmol/L (3.3-5.1); Sodium Level 138 mmol/L (133-145)
[2025-01-20] MEDS: Piperacil/Tazobactam 3.375 GM in 0.9% Normal Saline (50mL MB+) 50 ML IV ×3 (06:20→22:09)
[2025-01-20] MEDS: hydrALAZINE 20 MG/ML Vial 10 MG IV (06:25)
[2025-01-20 07:17] LABS: Bedside Glucose 189 mg/dL (74-106)
[2025-01-20] MEDS: amLODIPine 5 MG Tablet PO (08:49)
[2025-01-20] MEDS: hydroCHLOROthiazide 25 MG Tablet PO (08:50)
[2025-01-20] MEDS: Lisinopril 20 MG Tablet PO (08:51)
[2025-01-20] MEDS: Nystatin Powder 15gm Bottle 1 APPLIC TOPICAL (08:52)
[2025-01-20 11:42] LABS: Bedside Glucose 181 mg/dL (74-106)
--- NOTE | 2025-01-20 14:19 | PN_ITS ---
Subjective Subjective Patient seen and examined. was by her bedside. She had no active complaints. Review of symptoms otherwise negative. She is having unusual, of the left lower extremity today. Patient today says that her insulin at home causes her sugars to go high because the insulin in the hospital actually controls her sugars. I questioned whether she was compliant with her insulin at home and patient states she is. She has remained hemodynamically stable. Objective Data Objective Data Vital Signs: Vital Signs Temp Pulse Resp BP Pulse Ox O2 Del Method 98.6 F 70 16 144/69 H 94 Room Air 01/20/25 08:03 01/20/25 08:03 01/20/25 08:03 01/20/25 08:03 01/20/25 06:13 01/20/25 09:46 Oxygen Delivery Method Room Air Weight: 206 lb Body Mass Index (BMI) 33.2 Intake & Output: Intake and Output for Last 24 Hours 01/18/25 01/19/25 01/20/25 23:59 23:59 23:59 Intake Total 1989 300 / 300 Balance 1989 300 / 300 Lab / Micro Data 01/20/25 05:29 01/20/25 05:29 Labs: Laboratory Results - last 24 hr 01/19/25 16:20: POC Glucose 219 H 01/19/25 22:32: POC Glucose 246 H 01/20/25 01:37: Vancomycin Trough 14.9 01/20/25 05:29: WBC 8.7, RBC 3.92 L, Hgb 11.4 L, Hct 32.4 L, MCV 82.7, MCH 29.1, MCHC 35.2, RDW Std Deviation 36.5, RDW Coeff of Rosalie 12.2, Plt Count 336, MPV 8.7, Immature Gran % (Auto) 0.600, Neut % (Auto) 65.7, Lymph % (Auto) 21.9, [place] % (Auto) 8.9, Eos % (Auto) 2.3, Baso % (Auto) 0.6, Absolute Neuts (auto) 5.7, Absolute Lymphs (auto) 1.90, Nucleated RBC % 0, Sodium 138, Potassium 3.4, Chloride 102, Carbon Dioxide 22.8, Anion Gap 13, BUN 17, Creatinine 0.82, Estim Creat Clear Calc 74.57, Est GFR (MDRD) Non-Af 77, BUN/Creatinine Ratio 20.3 H, G lucose 184 H, Calcium 9.3 01/20/25 06:19: POC Glucose 189 H 01/20/25 11:25: POC Glucose 181 H Micro: Microbiology 01/18/25 12:05 Blood Culture (Wb) - Anticubital Left Blood Culture - Preliminary No growth in 48 hours. 01/18/25 12:16 Blood Culture (Wb) - Anticubital Left Blood Culture - Preliminary No growth in 48 hours. 01/18/25 17:19 Wound - Left Foot Gram Stain - Final 01/18/25 17:19 Wound - Left Foot Wound Culture - Preliminary Citrobacter freundii Gram positive organism Radiography Diagnostic Testing: Radiology Impression Abdomen/Pelvis CTA 01/19/25 14:19 IMPRESSION: 1. Extensive peripheral arterial disease, as described in detail above. Most notably, there is occlusion of the near entirety of the left superficial femoral artery, and high-grade narrowing of the right superficial femoral and bilateral popliteal arteries. Recommend Vascular Surgery and/or Interventional Radiology consultation. 2. [id number] coronary calcifications. 3. Cholelithiasis. Reading Location: [facility] Physical Exam Const alert, oriented x3 and no apparent distress Constitutional Narrative: class II obesity General Appearance: cooperative and comfortable HEENT normocephalic, head/scalp atraumatic, hearing grossly normal bilaterally, nasal mucous membranes and turbinates normal, moist oral mucous membranes and oropharynx normal Eyes PERRL, EOMs intact bilaterally and conjunctivae normal Neck full ROM, supple and no JVD Lymph Lymphatic: no lymphedema noted Chest inspection of chest normal Resp normal respiratory effort, normal air movement, no use of accessory muscles and clear to auscultation bilaterally Cardio regular rate, regular rhythm, S1 normal heart sound, S2 normal heart sound, no murmurs and peripheral pulses 2+ throughout GI normal to inspection, nondistended, normoactive bowel sounds, soft to palpation, non-tender and non-distended Back/Spine normal ROM Extremity Extremity Narrative: right foot wrapped in bandage General Extremity: no tenderness to palpation of joints or extremities Skin Skin Narrative: as under extremities Neuro CN's II-XII intact bilaterally Motor Exam: general weakness Psych mental status grossly normal, thought process normal and cooperative Appearance: appropriate Assessment & Plan Assessment/Plan (1) Diabetic infection of left foot: (2) Acute painful diabetic polyneuropathy: PLAN: Plan #Left diabetic foot infection * Was admitted with a complaint of worsening left foot wound with redness and swelling. CRP was elevated. * X-ray of the left foot shows soft tissue swelling with concern for osteomyelitis. He had bedside debridement of the foot by podiatry on 01/18/2025. Cultures sent. Currently on IV vancomycin and Zosyn. * Arterial studies done today showed severe arterial insufficiency in the left lower extremity with ankle-brachial index of 0.36 and moderate arterial insufficiency in right lower extremity with ankle-brachial index of 0.65. * Patient for left lower extremity angiogram by vascular surgery today. * * #TYpe 2 diabetes mellitus * A1c is 9.6. On glimepiride which is on hold. Insulin sliding scale. Accu- Cheks ACHS. * Is unclear whether patient has really been taking her insulin at home. She claims her insulin at home causes her blood sugars to go higher and claims compliance. #History of CAD: * Cardiac stents placed in October of this year. * Had two-vessel disease per Cardiac cath involving the LAD, diagonal vessel and circumflex artery and had stents placed then. * On aspirin, Plavix # Hypertension: On amlodipine, hydrochlorothiazide and lisinopril Class I obesity: BMI 33. Complicates acute care, expected recovery and prognosis #DVT prophylaxis: Lovenox Charges/Coding Visit Charges Inpatient E&M: 81493 Subs Hosp L2
[2025-01-20 18:06] LABS: ACT Activated Clotting Time 222 sec (74-137)
[2025-01-20 18:06] LABS: ACT Activated Clotting Time 251 sec (74-137)
--- NOTE | 2025-01-20 18:45 | PCM.OPRPT ---
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 Post-Operative Diagnosis: Same Surgery/Procedure Performed: Aortogram, left lower extremity angiogram Intravascular ultrasound left SFA popliteal, common femoral, external iliac arteries Angioplasty and stent left SFA popliteal education nurse: No Type of Anesthesia: Local and Sedation,Conscious Procedure Start Time: 17:30 Procedure Stop Time: 15:30 Select all DRAINS/GRAFTS/IMPLANTS that apply: Implanted device Implanted device details: Buckley Supera 5 x 120 [employer] Justa 6 x 120 [employer] Justa 6 x 120 Estimated Blood Loss: 5 Specimen collected: No Description of surgery: HPI: Patient is a 69-year-old female with history of arterial insufficiency and prior left SFA popliteal intervention for digit wounds that had required amputation at the time. She has now developed new gangrenous changes of her digits and pain at rest of the left lower extremity. CT angiography revealed total occlusion of the SFA popliteal including the stented segment with reconstitution of the below the knee popliteal artery. There is a small remnant of patent lumen at the origin of the SFA so the hope was that we were able to engage and crossed the lesion and treat endovascularly. She is taken now for angiogram with possible intervention. Description of procedure: Upon obtaining informed consent and verification correct patient procedure site the patient was taken to the [facility] where she was positioned prepped and draped in usual sterile fashion. Timeout was performed Sedation administered Versed and fentanyl. Skin overlying the right common femoral artery was anesthetized with 1% lidocaine the vessel accessed under ultrasound guidance with a micropuncture needle wire. This then exchanged for a micropuncture sheath through which hand-injection iliofemoral angiogram was performed revealing satisfactory positioning no extravasation or dissection. Through the micropuncture sheath [employer] wires advanced into the abdominal aorta the micropuncture sheath exchanged for a short 6 Monegasque sheath. Through this Omni Flush catheter was advanced into the abdominal aorta and digital subtraction aortogram pelvic angiogram was performed. We then navigated into the contralateral iliac system advancing her catheter into the distal external artery and from this position sequential subtraction angiography left lower extremities performed. This confirmed total occlusion of the SFA popliteal with small remnant of patent lumen proximally. There was intermittent reconstitution of the P1 and P2 segment of the popliteal artery with high-grade stenosis in the segments but ultimately there was reconstitution of the P3 segment popliteal with dominant peroneal runoff to the foot. It was felt this was amenable to intervention so a glide advantage wire was then advanced through the catheter and the Omni Flush catheter and short 6 Monegasque sheath exchanged for 7 Monegasque destination sheath advanced into the contralateral external iliac artery. The patient was then heparinized allowed to circulate for 3 minutes. From this position utilizing a command 18 wire and an angled quick cross catheter we engaged the proximal segment of the superficial femoral artery and began crossing the total occlusion. There was very slow progress in our efforts though we did appear to maintain position within true lumen based on the wire characteristics. After we had maximized our progress using the 018 wire we then exchanged for a straight stiff Glidewire and a straight quick cross catheter and continued our efforts to cross the lesion continuing our position within what appeared to be true lumen. Ultimately we were able to cross the entirety of the lesion and traverse the stent and into the P3 popliteal segment. The wire was then withdrawn and hand-injection subtraction angiography via the catheter in the distal popliteal artery confirmed position within true lumen no extravasation or dissection. The command 18 wire was then readvanced to the catheter and the catheter was withdrawn. A faye 4 x 150 angioplasty balloon was then advanced and inflated to nominal for multiple inflations across the entirety of the treatment zone which was approximately 400 mm. After the angioplasty was completed repeat angiography was performed which revealed significant improvement with now brisk contrast transit across the treatment zone and into the runoff vessels of the the lower leg. There were multiple areas of focal residual stenosis and dissection that did not appear likely to resolve with simple prolonged balloon angioplasty. In order to provide accurate reference vessel size measurements intravascular shunt probe was then advanced over the wire and recorded pullback performed of the SFA popliteal, common femoral, external iliac arteries. Given the distal extent of the treatment zone it was felt that a superior stent would have better longevity in the area of mechanical dynamics and it was felt that drug-coated balloon angioplasty within the previously placed stent would help improve its longer term durability. A 5 mm x 120 Bard Mac[employer] paclitaxel coated angioplasty balloon was then advanced to the popliteal artery just beyond the distal edge of the stent and extending back into the P1 segment. This was then inflated to nominal for 2 minutes then deflated withdrawn. Next an IR Diagnostyx supera 5 x 120 was advanced into the popliteal artery with overlap into the pre-existing stent. This was then deployed and the delivery system withdrawn. Next a [employer] Justa 6 x 120 was advanced into the distal superficial femoral artery with overlap into the Supera stent and deployed. Finally a second Justa 6 x 120 was advanced into the proximal superficial femoral artery with overlap into the first Justa stent and deployed with proximal edge at the SFA origin. The length of the Justa stents was then postdilated with a 5 mm x 120 angioplasty balloon. Completion angiography revealed satisfactory result with no significant residual stenosis and no extravasation or dissection. There is brisk contrast transit through the SFA popliteal treatment zone with preserved runoff into a very large caliber peroneal artery. There was what appeared to be embolic debris or dissection within profunda branches which was difficult to understand given that this was proximal to our treatment zone. This did not appear to cause any limitation to contrast transit and it was in the distal branches so we did not pursue this at this time. The long 7 Monegasque sheath then exchanged for a short 6 Monegasque sheath followed by a minx closure device deployed followed by 5 minutes of manual pressure with satisfactory stasis noted. The patient was then taken to the recovery area with anticipated return to the [facility] floor after bedrest was completed. Surgical Findings: As above Complications Complications: No
[2025-01-20 22:04] LABS: Bedside Glucose 311 mg/dL (74-106)
[2025-01-20] MEDS: Insulin Lispro 100 UNIT/ML INSULN.PEN SC (22:08)
[2025-01-21] VITALS (7 sets, daily range): BP systolic 139–168; BP diastolic 54–86; PULSE 53–88; RESP 15–16; TEMP 36.9–37.2; O2SAT 94–100
--- NOTE | 2025-01-21 00:20 | NURSING ---
This Rn to take over care at 2315 on 01/20/25.
--- NOTE | 2025-01-21 00:53 | NURSING ---
Report called to Carrie Masterson at 0053 on 01.21.25, pt transferring to [facility].
[2025-01-21] MEDS: Vancomycin IV 1,000 MG/200 ML BAG 200 MG IV ×2 (02:42→15:02)
[2025-01-21] MEDS: Acetaminophen 325 MG Tablet 650 MG PO ×3 (04:07→22:50)
[2025-01-21 06:15] LABS: Absolute Lymphocyte Count 1.36 X10^3/uL (0.83-4.51); Absolute Neutrophil Count 9.3 X10^3/uL (2.0-7.7); Basophil# 0.04 X10^3/uL; Basophil% 0.3 % (0-1); Eosinophils% 0.8 % (0-5); Hematocrit 31.7 % (37-47); Lymphocyte # 1.36 X10^3/ul (0.83-4.51); Lymphocyte % 11.4 % (19-41); Mean Corp Hgb Conc 34.7 g/dL (32-36); Mean Corpuscular Volume 83.6 fL (81-99); Mean Platelet Vol. 9.3 fl (6.2-12.0); Monocyte# 1.05 X10^3/uL; Monocyte% 8.8 % (0-10); NRBC Flagged by Analyzer 0 % (0-5); Neutrophil % 78.1 % (47-70); Platelet Count 318 K/mm3 (150-450); RBC Distribution Width CV 12.4 % (11.6-14.6); RBC Distribution Width SD 37.8 fl (35.1-43.9); Red Blood Count 3.79 M/mm3 (4.2-5.4); White Blood Count 11.9 K/mm3 (4.4-11.0)
[2025-01-21] MEDS: Piperacil/Tazobactam 3.375 GM in 0.9% Normal Saline (50mL MB+) 50 ML IV ×3 (06:24→22:19)
[2025-01-21] MEDS: Insulin Lispro 100 UNIT/ML INSULN.PEN SC ×4 (06:47→22:45)
[2025-01-21 06:51] LABS: Anion Gap 14 (5-15); BUN 20 mg/dL (4-19); BUN/Creat Ratio 21.3 RATIO (10-20); Calcium,Total 8.7 mg/dL (7.6-11.0); Chloride 100 mmol/L (98-108); Creatinine, Serum 0.95 mg/dL (0.70-1.20); EST Glomerular Filtration Rate 65 (>60); Estimated Creatinine Clearance 64.37 ml/min (50-250); Glucose 265 mg/dL (70-99); Potassium 3.1 mmol/L (3.3-5.1); Sodium Level 136 mmol/L (133-145)
[2025-01-21 07:08] LABS: Bedside Glucose 267 mg/dL (74-106)
[2025-01-21] MEDS: Lisinopril 20 MG Tablet PO (08:24)
[2025-01-21] MEDS: Clopidogrel Bisulfate 75 MG Tablet PO (08:24)
[2025-01-21] MEDS: hydroCHLOROthiazide 25 MG Tablet PO (08:25)
[2025-01-21] MEDS: Aspirin 81 MG TAB.CHEW PO (08:25)
[2025-01-21] MEDS: amLODIPine 5 MG Tablet PO (08:25)
[2025-01-21] MEDS: Enoxaparin 40 MG/0.4 ML Syringe SC (08:27)
[2025-01-21] MEDS: Nystatin Powder 15gm Bottle 1 APPLIC TOPICAL ×2 (08:31→22:23)
[2025-01-21 11:25] LABS: Bedside Glucose 325 mg/dL (74-106)
--- NOTE | 2025-01-21 11:35 | PCM.PN.SRG ---
Subjective Subjective I saw Kika this morning with her and family at bedside. She relates she is feeling well. She denies any pain or other concerns at the groin access site. She reports improved pain into her foot, her foot feels warmer to her. She has no new pain or other concerns. She is scheduled for L TMA with Dr. Lee on Saturday. Objective Data Objective Data Vital Signs: Vital Signs Temp Pulse Resp BP Pulse Ox O2 Del Method 98.4 F 70 15 139/54 H 95 Room Air 01/21/25 08:49 01/21/25 08:49 01/21/25 08:49 01/21/25 08:49 01/21/25 08:49 01/21/25 08:49 Oxygen Delivery Method Room Air Weight: 206 lb Body Mass Index (BMI) 33.2 Intake & Output: Intake and Output for Last 24 Hours 01/19/25 01/20/25 01/21/25 23:59 23:59 23:59 Intake Total 2049 600 / 600 300 / 300 Balance 2049 600 / 600 300 / 300 Lab / Micro Data 01/21/25 05:35 01/21/25 05:35 Labs: Laboratory Results - last 24 hr 01/20/25 11:25: POC Glucose 181 H 01/20/25 15:30: Activated Clotting Time 251 H 01/20/25 16:05: Activated Clotting Time 222 H 01/20/25 21:44: POC Glucose 311 H 01/21/25 05:35: WBC 11.9 H, RBC 3.79 L, Hgb 11.0 L, Hct 31.7 L, MCV 83.6, MCH 29.0, MCHC 34.7, RDW Std Deviation 37.8, RDW Coeff of Rosalie 12.4, Plt Count 318, MPV 9.3, Immature Gran % (Auto) 0.600, Neut % (Auto) 78.1 H, Lymph % (Auto) 11.4 L, [place] % (Auto) 8.8, Eos % (Auto) 0.8, Baso % (Auto) 0.3, Absolute Neuts (auto) 9.3 H, Absolute Lymphs (auto) 1.36, Nucleated RBC % 0, Sodium 136, Potassium 3.1 L, Chloride 100, Carbon Dioxide 22.0, Anion Gap 14, BUN 20 H, Creatinine 0.95, Estim Creat Clear Calc 64.37, Est GFR (MDRD) Non-Af 65, BUN/Creatinine Ratio 21.3 H, Glucose 265 H, Calcium 8.7 01/21/25 06:46: POC Glucose 267 H 01/21/25 11:05: POC Glucose 325 H Micro: Microbiology 01/18/25 17:19 Wound - Left Foot Gram Stain - Final 01/18/25 17:19 Wound - Left Foot Wound Culture - Final Citrobacter freundii Staphylococcus aureus Staphylococcus epidermidis 01/18/25 17:19 Wound - Left Foot Anaerobic Culture - Preliminary 01/18/25 12:05 Blood Culture (Wb) - Anticubital Left Blood Culture - Preliminary No growth in 48 hours. 01/18/25 12:16 Blood Culture (Wb) - Anticubital Left Blood Culture - Preliminary No growth in 48 hours. Radiography Diagnostic Testing: Radiology Impression Saphenous Venous Mapping 01/19/25 17:00 Interpretation Summary Bilateral great saphenous veins patent with measurements above. Bilateral small saphenous veins patent with measurements above. Ordering Physician: Mahogany Schmidt Referring Physician: Teresa Millan Performed By: Bobbi Hunter RVT Physical Exam Const alert, oriented x3 and no apparent distress General Appearance: cooperative and comfortable HEENT normocephalic, head/scalp atraumatic, hearing grossly normal bilaterally, external ears normal and external nose normal Eyes EOMs intact bilaterally General Eye: normal appearance of both eyes Neck General: normal visual inspection and trachea midline Resp normal respiratory effort, normal air movement, no retractions and no use of accessory muscles Effort and Inspection: able to speak in complete sentences; Negative for labored, grunting or stridor Cardio Rate: regular rate Rhythm: regular rhythm Extremity Extremity Narrative: L foot with wound dressings C/D/I, minimally disturbed for vascular exam; L PT and DP with strong monophasic signals Skin Wounds: wounds noted Wound Narrative: Reviewed wound pictures in chart; L dorsal foot wound, dry eschar to the L 2nd, 3rd, 4th toes. Neuro oriented x3, moves all extremities and no focal motor deficits Speech: speech normal Psych mental status grossly normal Appearance: grossly normal Attitude: calm and engaged Activity / Motor Behavior: appropriate eye contact Speech: normal speech Mood & Affect: euthymic mood Assessment & Plan Assessment/Plan (1) Atherosclerosis of left lower extremity with gangrene: PLAN: She is s/p LLE angiogram with successful revascularization via L SFA angioplasty and stent 01/20/25. Inflow to the L foot is much improved, peroneal is the primary runoff. She is cleared from vascular perspective to proceed with L TMA as planned on 01/22/25. Continue ASA and Plavix. Charges/Coding Visit Charges Inpatient E&M: 23465 Subs Hosp L1
[2025-01-21] MEDS: Potassium Chloride Oral Tablet 20 MEQ 40 MEQ PO (13:07)
--- NOTE | 2025-01-21 13:52 | PCM.RX.CS ---
Consult Antibiotic Management Pharmacy has been consulted to manage selected antibiotic: Vancomycin Type of Intervention Type of Consult: Follow-up Suspected Infection Suspected Infection: Skin/Soft tissue Prior Doses of Antibiotics Prior Doses of Antibiotics Received/Current Regimen: 01/21/25 @0242 Vancomycin 1000mg Labs Labs: Sodium 136 mmol/L (133-145) 01/21/25 05:35 Potassium 3.1 mmol/L (3.3-5.1) L 01/21/25 05:35 Chloride 100 mmol/L (98-108) 01/21/25 05:35 Carbon Dioxide 22.0 mmol/L (21.0-32.0) 01/21/25 05:35 Anion Gap 14 (5-15) 01/21/25 05:35 BUN 20 mg/dL (4-19) H 01/21/25 05:35 Creatinine 0.95 mg/dL (0.70-1.20) 01/21/25 05:35 Est GFR (MDRD) Non-Af 65 (>60) 01/21/25 05:35 BUN/Creatinine Ratio 21.3 RATIO (10-20) H 01/21/25 05:35 Glucose 265 mg/dL (70-99) H 01/21/25 05:35 Vancomycin Trough 14.9 ug/mL (5.0-15.0) 01/20/25 01:37 Microbiology Microbiology: Microbiology 01/18/25 17:19 Wound - Left Foot Gram Stain - Final 01/18/25 17:19 Wound - Left Foot Wound Culture - Final Citrobacter freundii Staphylococcus aureus Staphylococcus epidermidis 01/18/25 17:19 Wound - Left Foot Anaerobic Culture - Preliminary 01/18/25 12:05 Blood Culture (Wb) - Anticubital Left Blood Culture - Preliminary No growth in 48 hours. 01/18/25 12:16 Blood Culture (Wb) - Anticubital Left Blood Culture - Preliminary No growth in 48 hours. Dosing Weight Weight used for dosin kg Estimated Creatinine Clearance Estimated Creatinine Clearance: 65 Goal Trough Goal Trough: 15-20 mcg/mL Pharmacy Plan for Drug Dosing Pharmacy Plan for Drug Dosing: Vancomycin 1000mg every 12 hours Pharmacy Service will continue to monitor and adjust dosing as required. Follow-Up Labs Follow-Up Labs: Trough: Vancomycin Date/Time Labs Ordered Labs to be done on [date and time ordered]: 01/22/25 @ 0130
--- NOTE | 2025-01-21 13:59 | PN_ITS ---
Subjective Subjective Patient seen and examined with her nurse by her bedside. She had no active complaints. She had an uneventful night. SHe had angiogram done yesterday with successful revascularization. Review of systems is otherwise negative. She is due for surgery tomorrow. Objective Data Objective Data Vital Signs: Vital Signs Temp Pulse Resp BP Pulse Ox O2 Del Method 98.4 F 70 15 139/54 H 95 Room Air 01/21/25 08:49 01/21/25 08:49 01/21/25 08:49 01/21/25 08:49 01/21/25 08:49 01/21/25 08:49 Oxygen Delivery Method Room Air Weight: 206 lb Body Mass Index (BMI) 33.2 Intake & Output: Intake and Output for Last 24 Hours 01/19/25 01/20/25 01/21/25 23:59 23:59 23:59 Intake Total 2049 600 / 600 300 / 300 Balance 2049 600 / 600 300 / 300 Lab / Micro Data 01/21/25 05:35 01/21/25 05:35 Labs: Laboratory Results - last 24 hr 01/20/25 15:30: Activated Clotting Time 251 H 01/20/25 16:05: Activated Clotting Time 222 H 01/20/25 21:44: POC Glucose 311 H 01/21/25 05:35: WBC 11.9 H, RBC 3.79 L, Hgb 11.0 L, Hct 31.7 L, MCV 83.6, MCH 29.0, MCHC 34.7, RDW Std Deviation 37.8, RDW Coeff of Rosalie 12.4, Plt Count 318, MPV 9.3, Immature Gran % (Auto) 0.600, Neut % (Auto) 78.1 H, Lymph % (Auto) 11.4 L, [place] % (Auto) 8.8, Eos % (Auto) 0.8, Baso % (Auto) 0.3, Absolute Neuts (auto) 9.3 H, Absolute Lymphs (auto) 1.36, Nucleated RBC % 0, Sodium 136, Potassium 3.1 L, Chloride 100, Carbon Dioxide 22.0, Anion Gap 14, BUN 20 H, Creatinine 0.95, Estim Creat Clear Calc 64.37, Est GFR (MDRD) Non-Af 65, BUN/Creatinine Ratio 21.3 H, Glucose 265 H, Calcium 8.7 01/21/25 06:46: POC Glucose 267 H 01/21/25 11:05: POC Glucose 325 H Micro: Microbiology 01/18/25 17:19 Wound - Left Foot Gram Stain - Final 01/18/25 17:19 Wound - Left Foot Wound Culture - Final Citrobacter freundii Staphylococcus aureus Staphylococcus epidermidis 01/18/25 17:19 Wound - Left Foot Anaerobic Culture - Preliminary 01/18/25 12:05 Blood Culture (Wb) - Anticubital Left Blood Culture - Preliminary No growth in 48 hours. 01/18/25 12:16 Blood Culture (Wb) - Anticubital Left Blood Culture - Preliminary No growth in 48 hours. Radiography Diagnostic Testing: Radiology Impression Saphenous Venous Mapping 01/19/25 17:00 Interpretation Summary Bilateral great saphenous veins patent with measurements above. Bilateral small saphenous veins patent with measurements above. Ordering Physician: Mahogany Schmidt Referring Physician: Teresa Millan Performed By: Bobbi Hunter RVT Physical Exam Const alert, oriented x3 and no apparent distress Constitutional Narrative: class II obesity General Appearance: cooperative and comfortable HEENT normocephalic, head/scalp atraumatic, hearing grossly normal bilaterally and moist oral mucous membranes Eyes EOMs intact bilaterally and conjunctivae normal Neck full ROM, supple and no JVD Lymph Lymphatic: no lymphedema noted Chest inspection of chest normal Resp normal respiratory effort, normal air movement, no use of accessory muscles and clear to auscultation bilaterally Cardio regular rate, regular rhythm, S1 normal heart sound, S2 normal heart sound, no murmurs and peripheral pulses 2+ throughout GI normal to inspection, nondistended, normoactive bowel sounds, soft to palpation, non-tender and non-distended Back/Spine normal ROM Extremity Extremity Narrative: right foot wrapped in bandage. Audible Distal pulses of RLE as checked with doppler by vascular surgery PA during review. General Extremity: no tenderness to palpation of joints or extremities Skin no rashes or lesions noted Skin Narrative: as under extremities Neuro no focal motor deficits and no sensory deficits noted Motor Exam: general weakness Psych mental status grossly normal, thought process normal and cooperative Appearance: appropriate Assessment & Plan Assessment/Plan (1) Diabetic infection of left foot: (2) Acute painful diabetic polyneuropathy: PLAN: Plan #Left diabetic foot infection * Was admitted with a complaint of worsening left foot wound with redness and swelling. CRP was elevated. * X-ray of the left foot shows soft tissue swelling with concern for osteomyelitis. He had bedside debridement of the foot by podiatry on 01/18/2025. Cultures sent. Currently on IV vancomycin and Zosyn. * Arterial studies done today showed severe arterial insufficiency in the left lower extremity with ankle-brachial index of 0.36 and moderate arterial insufficiency in right lower extremity with ankle-brachial index of 0.65. * had angiogram with angioplasty and stent of the left SFA and popliteal arteries. * for surgery by podiatry tomorrow * #Hypokalemia: K is 3.1. Will replace and trend. #TYpe 2 diabetes mellitus * A1c is 9.6. On glimepiride which is on hold. Insulin sliding scale. Accu- Cheks ACHS. * Is unclear whether patient has really been taking her insulin at home. * She claims her insulin at home causes her blood sugars to go higher and claims compliance. #History of CAD: * Cardiac stents placed in October of this year. * Had two-vessel disease per Cardiac cath involving the LAD, diagonal vessel and circumflex artery and had stents placed then. * On aspirin, Plavix # Hypertension: On amlodipine, hydrochlorothiazide and lisinopril Class I obesity: BMI 33. Complicates acute care, expected recovery and prognosis #DVT prophylaxis: Lovenox Charges/Coding Visit Charges Inpatient E&M: 88513 Subs Hosp L2
[2025-01-21] MEDS: 0.9% Saline Lock 10 ML Syringe IV (14:21)
[2025-01-21 16:56] LABS: Bedside Glucose 330 mg/dL (74-106)
--- NOTE | 2025-01-21 17:10 | PCM.PN.SRG ---
Subjective Subjective Patient was seen at bedside today with family present to discuss surgical invention to left lower extremity after successful revascularization by vascular surgery. No acute events overnight. Blood sugar has been a little elevated but is on sliding scale insulin. Denies trauma. Denies constitutional symptoms. No other pedal complaints at this time. Objective Data Objective Data Vital Signs: Vital Signs Temp Pulse Resp BP Pulse Ox O2 Del Method 98.4 F 88 16 168/86 H 100 Room Air 01/21/25 15:18 01/21/25 15:18 01/21/25 15:18 01/21/25 15:18 01/21/25 15:18 01/21/25 15:20 Oxygen Delivery Method Room Air Weight: 93.44 kg Body Mass Index (BMI) 33.2 Intake & Output: Intake and Output for Last 24 Hours 01/19/25 01/20/25 01/21/25 23:59 23:59 23:59 Intake Total 2049 600 / 600 500 / 500 Balance 2049 600 / 600 500 / 500 Lab / Micro Data 01/21/25 05:35 01/21/25 05:35 Labs: Laboratory Results - last 24 hr 01/20/25 15:30: Activated Clotting Time 251 H 01/20/25 16:05: Activated Clotting Time 222 H 01/20/25 21:44: POC Glucose 311 H 01/21/25 05:35: WBC 11.9 H, RBC 3.79 L, Hgb 11.0 L, Hct 31.7 L, MCV 83.6, MCH 29.0, MCHC 34.7, RDW Std Deviation 37.8, RDW Coeff of Rosalie 12.4, Plt Count 318, MPV 9.3, Immature Gran % (Auto) 0.600, Neut % (Auto) 78.1 H, Lymph % (Auto) 11.4 L, [place] % (Auto) 8.8, Eos % (Auto) 0.8, Baso % (Auto) 0.3, Absolute Neuts (auto) 9.3 H, Absolute Lymphs (auto) 1.36, Nucleated RBC % 0, Sodium 136, Potassium 3.1 L, Chloride 100, Carbon Dioxide 22.0, Anion Gap 14, BUN 20 H, Creatinine 0.95, Estim Creat Clear Calc 64.37, Est GFR (MDRD) Non-Af 65, BUN/Creatinine Ratio 21.3 H, Glucose 265 H, Calcium 8.7 01/21/25 06:46: POC Glucose 267 H 01/21/25 11:05: POC Glucose 325 H 01/21/25 16:38: POC Glucose 330 H Micro: Microbiology 01/18/25 17:19 Wound - Left Foot Gram Stain - Final 01/18/25 17:19 Wound - Left Foot Wound Culture - Final Citrobacter freundii Staphylococcus aureus Staphylococcus epidermidis 01/18/25 17:19 Wound - Left Foot Anaerobic Culture - Preliminary 01/18/25 12:05 Blood Culture (Wb) - Anticubital Left Blood Culture - Preliminary No growth in 48 hours. 01/18/25 12:16 Blood Culture (Wb) - Anticubital Left Blood Culture - Preliminary No growth in 48 hours. Radiography Diagnostic Testing: Radiology Impression Saphenous Venous Mapping 01/19/25 17:00 Interpretation Summary Bilateral great saphenous veins patent with measurements above. Bilateral small saphenous veins patent with measurements above. Ordering Physician: Mahogany Schmidt Referring Physician: Teresa Millan Performed By: Bobbi Hunter RVT Physical Exam Narrative Neurovascular status is unchanged. Blanchable erythema appreciated left lower extremity. Dry gangrene to the 2nd and 3rd digit with exposed bone to the left foot. Mild drainage appreciated to the third digit. Stable eschar to the dorsal aspect of the left dorsal foot. Mild pain to palpation to the left 2nd and 3rd digit. No pain with calf compression. 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 All findings were discussed with patient. All questions were answered to the patient satisfaction. Successful revascularization to left lower extremity by vascular surgery. DOS: 01/20/2025. Patient cleared by vascular perspective move forward with amputation to left lower extremity. Plan for surgery, tomorrow, 01/22/2025. Patient to be n.p.o. at midnight tonight. Surgical plan will be incision bone cortex with advancement flap closure to the left 2nd and 3rd digit with surgical skin graft site prep with application of skin graft substitute to the dorsal full-thickness wound to the left foot. All risk and benefits were discussed with patient in great detail. WBC: 11.9 Glucose: 330 Cultures: C. freundii, S. aureus, S. epidermidis Medicine: On board, medical management, IV antibiotics vancomycin and Zosyn Vascular surgery: On board, , Status post left lower extremity angiogram with successful revascularization via left SFA angioplasty and stent 01/20/2025. Podiatry will continue to follow while patient is in house. Please reach out to Dr. Lee for any question concerns. (2) Other specified peripheral vascular diseases: (3) Acute painful diabetic polyneuropathy: (4) Diabetic infection of left foot: (5) Atherosclerosis of left lower extremity with gangrene:
[2025-01-21 23:06] LABS: Bedside Glucose 207 mg/dL (74-106)
[2025-01-22] VITALS (16 sets, daily range): BP systolic 144–171; BP diastolic 55–93; PULSE 64–85; RESP 16–18; TEMP 35.9–37.2; O2SAT 88–98; BMI 33.2
[2025-01-22 02:04] LABS: Vancomycin, Trough Level 17.7 ug/mL (5.0-15.0)
[2025-01-22] MEDS: Vancomycin IV 1,000 MG/200 ML BAG 200 MG IV ×2 (02:38→15:44)
[2025-01-22] MEDS: Vancomycin Trough/Random Due 1 LAB MC (02:38)
[2025-01-22] MEDS: 0.9% Saline Lock 10 ML Syringe IV (02:38)
--- NOTE | 2025-01-22 03:18 | PCM.RX.CS ---
Consult Antibiotic Management Pharmacy has been consulted to manage selected antibiotic: Vancomycin Type of Intervention Type of Consult: Follow-up Labs Labs: Sodium 136 mmol/L (133-145) 01/21/25 05:35 Potassium 3.1 mmol/L (3.3-5.1) L 01/21/25 05:35 Chloride 100 mmol/L (98-108) 01/21/25 05:35 Carbon Dioxide 22.0 mmol/L (21.0-32.0) 01/21/25 05:35 Anion Gap 14 (5-15) 01/21/25 05:35 BUN 20 mg/dL (4-19) H 01/21/25 05:35 Creatinine 0.95 mg/dL (0.70-1.20) 01/21/25 05:35 Est GFR (MDRD) Non-Af 65 (>60) 01/21/25 05:35 BUN/Creatinine Ratio 21.3 RATIO (10-20) H 01/21/25 05:35 Glucose 265 mg/dL (70-99) H 01/21/25 05:35 Vancomycin Trough 17.7 ug/mL (5.0-15.0) H 01/22/25 01:36 Microbiology Microbiology: Microbiology 01/18/25 17:19 Wound - Left Foot Gram Stain - Final 01/18/25 17:19 Wound - Left Foot Wound Culture - Final Citrobacter freundii Staphylococcus aureus Staphylococcus epidermidis 01/18/25 17:19 Wound - Left Foot Anaerobic Culture - Preliminary 01/18/25 12:05 Blood Culture (Wb) - Anticubital Left Blood Culture - Preliminary No growth in 48 hours. 01/18/25 12:16 Blood Culture (Wb) - Anticubital Left Blood Culture - Preliminary No growth in 48 hours. Goal Trough Goal Trough: 15-20 mcg/mL Pharmacy Plan for Drug Dosing Pharmacy Plan for Drug Dosing: Pharmacy Service will continue to monitor and adjust dosing as required. TROUGH 17.7 @ 10.5 HOURS. NO CHANGES, FOLLOW UP TROUGH IN 2 DAYS PER INCREASE SCr. Follow-Up Labs Follow-Up Labs: Trough: Vancomycin Date/Time Labs Ordered Labs to be done on [date and time ordered]: 01/24 @ 0130
[2025-01-22] MEDS: Piperacil/Tazobactam 3.375 GM in 0.9% Normal Saline (50mL MB+) 50 ML IV ×3 (05:45→21:43)
[2025-01-22 06:46] LABS: Absolute Lymphocyte Count 1.82 X10^3/uL (0.83-4.51); Absolute Neutrophil Count 6.6 X10^3/uL (2.0-7.7); Basophil# 0.05 X10^3/uL; Basophil% 0.5 % (0-1); Eosinophil# 0.49 X10^3/uL; Eosinophils% 4.9 % (0-5); Hemoglobin 10.5 g/dL (12.0-15.0); Lymphocyte # 1.82 X10^3/ul (0.83-4.51); Lymphocyte % 18.1 % (19-41); Mean Corpuscular Hgb 29.4 pg (27.0-32.0); Mean Platelet Vol. 9.4 fl (6.2-12.0); Monocyte# 1.05 X10^3/uL; Monocyte% 10.4 % (0-10); NRBC Flagged by Analyzer 0 % (0-5); Neutrophil # 6.61 X10^3/uL (2.7-7.7); Neutrophil % 65.8 % (47-70); Platelet Count 302 K/mm3 (150-450); RBC Distribution Width CV 12.2 % (11.6-14.6); RBC Distribution Width SD 37.2 fl (35.1-43.9); Red Blood Count 3.57 M/mm3 (4.2-5.4); White Blood Count 10.1 K/mm3 (4.4-11.0)
[2025-01-22 07:20] LABS: Anion Gap 14 (5-15); BUN 22 mg/dL (4-19); BUN/Creat Ratio 25.8 RATIO (10-20); Calcium,Total 8.9 mg/dL (7.6-11.0); Carbon Dioxide 20.8 mmol/L (21.0-32.0); Chloride 101 mmol/L (98-108); Creatinine, Serum 0.87 mg/dL (0.70-1.20); EST Glomerular Filtration Rate 72 (>60); Estimated Creatinine Clearance 70.29 ml/min (50-250); Glucose 182 mg/dL (70-99); Potassium 3.4 mmol/L (3.3-5.1); Sodium Level 136 mmol/L (133-145)
[2025-01-22] MEDS: Lisinopril 20 MG Tablet PO (08:23)
[2025-01-22] MEDS: amLODIPine 5 MG Tablet PO (08:23)
[2025-01-22 08:33] LABS: Bedside Glucose 201 mg/dL (74-106)
[2025-01-22 08:33] LABS: Bedside Glucose 211 mg/dL (74-106)
--- NOTE | 2025-01-22 08:58 | WOUNDNOTE ---
Will leave dressing in place to the left foot. patient going to OR later today.
--- NOTE | 2025-01-22 11:21 | PCM.PRE.AN2 ---
ASA Classification* ASA Classification ASA Classification: 3 Assessment & Plan Anesthesia* Anesthesia Assessment Anesthesia Assessment: Discussed sedation and/or anesthesia options, risks, benefits, and alternatives with patient/parents/legal guardian/POA. Questions invited. The patient/parents/legal guardian/POA seems to understand and agrees to proceed with anesthesia plan. Reviewed the physical assessment, medical history, allergy history and patient home medications list prior to surgery/procedure/anesthetic and documented any changes. Performed airway and anesthesia risk assessments. Anesthesia Type Anesthesia Type: General Anesthesia Focused Assessment* Temperature: 98.3 F Pulse Rate: 83 Blood Pressure: 154/71 Respiratory Rate: 18 Pulse Ox: 94 Oxygen Flow Rate (L/min): 95 Airway Assessment Mouth opens: >3 cm Mallampati Score: II Comment: Saw cardiology 11/26/2024. Has stented coronary artery. Mid LAD. Stable at that time. EF 70%. EKG 11/04/2024. Shows right bundle branch block 76 bpm Labs Anesthesia Preop lab: CBC WBC 10.1 K/mm3 (4.4-11.0) 01/22/25 05:50 01/22/25 RBC 3.57 M/mm3 (4.2-5.4) L 01/22/25 05:50 01/22/25 Hgb 10.5 g/dL (12.0-15.0) L 01/22/25 05:50 01/22/25 Hct 30.0 % (37-47) L 01/22/25 05:50 01/22/25 Plt Count 302 K/mm3 (150-450) 01/22/25 05:50 01/22/25 CHEMISTRY Potassium 3.4 mmol/L (3.3-5.1) 01/22/25 05:50 01/22/25 Sodium 136 mmol/L (133-145) 01/22/25 05:50 01/22/25 Magnesium 1.8 mg/dL (1.6-2.6) 08/26/17 17:52 08/26/17 Phosphorus 3.3 mg/dL (2.5-4.9) 07/19/17 05:40 07/19/17 BUN 22 mg/dL (4-19) H 01/22/25 05:50 01/22/25 Creatinine 0.87 mg/dL (0.70-1.20) 01/22/25 05:50 01/22/25 Glucose 182 mg/dL (70-99) H 01/22/25 05:50 01/22/25 POC Glucose 211 mg/dL (74-106) H 01/22/25 08:14 01/22/25 COAG PT 15.0 SECONDS (11.7-14.9) H 07/20/17 05:13 07/20/17 Pre-Assessment Diagnosis/Proposed Procedure Planned Operative Procedure(s): Incision of cortex flap closure, second third digit left foot. Skin graft. Anesthesia History Anesthesia History - regional project manager: Anesthesia History - regional project manager Hx Hospitalization No 08/26/17 21:57 Any Problems With Anesthesia No 01/22/25 05:48 Cholinesterase deficiency No 01/22/25 05:48 You/Your Family Experience No 01/22/25 05:48 fever (hyperthermia) with Relationship Recent Exposure to Contagious No 01/22/25 05:48 Disease Does patient have nerve No 01/22/25 05:48 stimulator Patient instructed to have No 01/22/25 05:48 device shut off --Does patient have Pacemaker No 01/22/25 09:34 or ICD? When Was Last Pacemaker Check QUESTION #4 FULL TEXT: You/Your Family Experience fever (hyperthermia) with Anesthesia Last Oral Intake Last Oral intake: Last Oral Intake NPO since 00:00 01/22/25 09:34 Meds taken in AM with sips of water? Meds patient instructed to take am of surgery PONV PONV - regional project manager: PONV - regional project manager Female HX of Motion Sickness HX of N/V After Surgery Non-Smoker Duration of Surgery greater than 60 minutes Number of Risk Factors PONV Score Height & Weight Height & Weight: Anesthesia: Height & Weight Height 5 ft 6 in 01/22/25 09:34 Weight: 93.44 kg 01/22/25 09:34 Body Mass Index (BMI) 33.2 01/22/25 09:34 Respiratory Assessment Respiratory Assessment - regional project manager: Respiratory Tract Infection Hx - regional project manager Hx Respiratory Tract Infection No 01/22/25 05:48 STOP Sleep Apnea STOP Sleep Apnea - regional project manager: STOP Sleep Apnea - regional project manager Hx Hypertension Yes 01/20/25 10:19 Hx Sleep Apnea No 01/18/25 15:13 CPAP No 08/27/17 16:50 BIPAP No 08/26/17 21:57 Do you snore loudly (louder No 01/18/25 15:13 than talking or can be heard Do you often feel tired/ No 01/18/25 15:13 fatigued/ sleepy during daytime? Has anyone observed you stop No 01/18/25 15:13 breathing during sleep? STOP Results Negative 01/18/25 15:13 QUESTION #5 FULL TEXT : Do you snore loudly (louder than talking or can be heard through closed doors)? Tobacco Use History Tobacco Use History - regional project manager: Tobacco Use History - regional project manager Tobacco Use Smoking Status Never smoker 01/18/25 15:13 Hx Tobacco Use No 01/18/25 15:13 Years Smoking Packs Smoked per Day Smoking Cessation Date was within the last 15 years Hx Smoking Cessation Date Hx Smoking Cessation Counseling Hematologic Medial History Hematologic Hx - regional project manager: Hematologic Medical Hx - vector control assistant Hx of Blood Transfusion Yes 01/18/25 15:13 Hx of Transfusion in last 3 No 01/18/25 15:13 Months Date of Last Transfusion (if within last 3 months) Ever experience any problems No 01/18/25 15:13 with transfusion(s)? Specify any problems Hx of Preganancy in last 3 No 01/18/25 15:13 Months Nurse Filling Out Transfusion ACOEY 01/18/25 15:13 & Questions: Date: 01/18/25 01/18/25 15:13 Time: 15:14 01/18/25 15:13 Patient unable to answer at this time (ie. confused, unrespo /Reproduction History /Reproductive History - regional project manager: /Reproductive Hx- regional project manager Hx Now No 01/22/25 05:48 Gestational Age (in weeks): EDC: Hx Hx Para Hx Section SAB No 01/22/25 05:48 Active Medications Active Medications: Current Medications Generic Name Dose Route Start Last Admin Trade Name Freq PRN Reason Stop Dose Admin Acetaminophen 650 mg 01/18/25 14:39 01/21/25 22:50 Acetaminophen 325 Mg Tablet PO 650 mg Q6H PRN PRN Administration Pain 1-10 or Fever Amlodipine Besylate 5 mg 01/19/25 10:00 01/22/25 08:23 Amlodipine 5 Mg Tablet PO 5 mg DAILY OPAL Administration Protocol Aspirin 81 mg 01/19/25 08:00 01/22/25 06:37 Aspirin 81 Mg Tab.Chew PO Not Given BREAKFAST OPAL Clopidogrel Bisulfate 75 mg 01/19/25 10:00 01/22/25 06:38 Clopidogrel Bisulfate 75 Mg Tablet PO Not Given DAILY OPAL Enoxaparin Sodium 40 mg 01/19/25 10:00 01/22/25 06:37 Enoxaparin 40 Mg/0.4 Ml Syringe SC Not Given DAILY OPAL Glucagon 1 mg 01/18/25 14:39 Glucagon 1 Mg/Ml Syringe IM X1 PRN Hypoglycemia Protocol Hydralazine HCl 10 mg 01/18/25 16:00 01/20/25 06:25 Hydralazine 20 Mg/Ml Vial IV 10 mg Q4H PRN PRN Administration SBP GREATER THAN 170 Protocol Hydrochlorothiazide 25 mg 01/19/25 10:00 01/22/25 08:19 Hydrochlorothiazide 25 Mg Tablet PO Not Given DAILY OPAL Protocol Dextrose 250 mls @ 0 mls/hr 01/18/25 14:39 Dextrose 10%-Water IV .Q0M PRN HYPOGLYCEMIA Protocol As Directed Vancomycin IV-PHARMACY TO DOSE 500 mls @ 250 mls/hr 01/18/25 14:39 1 each/ Sodium Chloride IV PRN PRN Rx to Dose Protocol Piperacillin Sod/Tazobactam 50 mls @ 12.5 mls/hr 01/18/25 22:00 01/22/25 09:45 Sod 3.375 gm/ Sodium Chloride IV Infused Q8 OPAL Infusion Vancomycin HCl 1,000 mg in 200 mls @ 200 mls/hr 01/19/25 02:00 01/22/25 03:38 Vancomycin IV Infused Q12H OPAL Infusion Sodium Chloride 250 mls @ 15 mls/hr 01/18/25 15:07 IV .[id number] PRN Saline Flush Sodium Chloride 250 mls @ 15 mls/hr 01/18/25 15:07 01/19/25 14:56 IV Infused .[id number] PRN Infusion Additional IVPB Infusion Lactated Ringer's 1,000 mls @ 15 mls/hr 01/22/25 11:30 IV .Q48H OPAL Insulin Human Lispro 0 unit 01/18/25 16:00 01/22/25 08:19 Insulin Lispro 100 Unit/Ml Insuln.Pen SC Not Given ACHS [facility]1983 Protocol Lisinopril 20 mg 01/19/25 10:00 01/22/25 08:23 Lisinopril 20 Mg Tablet PO 20 mg DAILY OPAL Administration Protocol Melatonin 3 mg 01/18/25 14:39 Melatonin 3 Mg Tablet PO QHS PRN PRN INSOMNIA Nystatin 1 applic 01/20/25 10:00 01/22/25 08:19 Nystatin Powder 15gm Bottle TOPICAL Not Given BID [facility], [facility]1983 Protocol Ondansetron HCl 4 mg 01/18/25 14:39 Ondansetron 4 Mg/2 Ml Vial IV Q8H PRN PRN NAUSEA/VOMITING Oxycodone HCl 5 mg 01/18/25 14:39 Oxycodone 5 Mg Tablet PO Q6H PRN PRN Pain Score 6-10 Sodium Chloride 10 - 40 ml 01/18/25 15:07 01/22/25 02:38 0.9% Saline Lock 10 Ml Syringe IV 10 ml UD PRN Administration SALINE FLUSH Vancomycin Protocol 1 lab 01/24/25 00:30 Vancomycin Trough/Random Due MC 01/24/25 02:30 DAILY [facility] Medical History Diabetes Left great toe amputee Home Medications ?Medication ?Instructions ?Recorded ?Last Taken ?Type lisinopril 20 mg tablet 20 mg PO DAILY 11/03/24 01/18/25 History amlodipine 5 mg tablet 5 mg PO DAILY #90 tabs 11/04/24 01/18/25 Rx aspirin 81 mg chewable tablet 81 mg PO BREAKFAST #90 tabs 11/04/24 01/18/25 Rx clopidogrel 75 mg tablet 75 mg PO DAILY #90 tabs 11/04/24 01/18/25 Rx glimepiride 4 mg tablet 4 mg PO DAILY #1 TAB 11/04/24 01/17/25 Rx hydrochlorothiazide 25 mg tablet 25 mg PO DAILY #90 tabs 11/04/24 01/18/25 Rx doxycycline hyclate 100 mg tablet 100 mg PO BID 01/18/25 01/18/25 History Allergy/AdvReac Type Severity Reaction Status Date / Time cephalexin (From Keflex) Allergy Rash Verified 01/18/25 11:12 morphine Allergy Unknown Verified 01/18/25 11:12 Surgical History Stented coronary artery (11/03/24) Social History Smoking Status: Never smoker Review of Systems (Anesthesia) ROS Narrative System reviewed and no additional complaints, except as documented.
[2025-01-22] MEDS: Lactated Ringers 1,000 ML 15 ML IV (11:29)
--- NOTE | 2025-01-22 11:53 | PCM.OPRPT ---
Problems Associated Problem List Diagnoses (1) Non-pressure chronic ulcer of other part of left foot with necrosis of bone: (2) Diabetic infection of left foot: Operative Report (Standard) Operative Information Date of Procedure: 01/22/25 Pre-Operative Diagnosis: 1. Full-thickness wound down to bone, second digit, left foot 2. Full-thickness wound down to bone, third digit, left foot 3. Full-thickness wound down to subcutaneous tissue, dorsal foot, left foot Post-Operative Diagnosis: Same as preoperative diagnosis Surgery/Procedure Performed: Procedure #1: Incision bone cortex, second digit, left foot Procedure #2: Incision bone cortex, third digit, left foot Procedure #3: Advancement flap closure, second digit, left foot Procedure #4: Advancement flap closure, third digit, left foot Procedure #5: Surgical skin graft site prep, left foot Procedure #6: Application of skin graft substitute, left foot as400 programmer: No Type of Anesthesia: Local and MAC RN Documented Start/Stop Times: Operation Date: 01/22/25 12:00 Case Time Into Pre-Op 01/22/25 11:15 Anesthesia Start 01/22/25 12:39 Into Room 01/22/25 12:39 Procedure Start 01/22/25 13:02 Procedure End 01/22/25 13:50 Procedure Start Time: 13:02 Procedure Stop Time: 13:50 Select all DRAINS/GRAFTS/IMPLANTS that apply: Graft Graft details: 4x4 Bioskin Bj Medical Special Medications: Per anesthesia Estimated Blood Loss: 15 cc Fluids Replaced: Per anesthesia Specimen collected: Yes Description of specimen(s) removed: 1. Incision bone cortex, second, third digit left foot sent to microbiology and pathology Description of surgery: Indications For Operation: Mrs. Menezes is a 69-year-old diabetic female who was admitted to [facility] for worsening infection to the left foot. Podiatry was consulted for evaluation and surgical intervention. Preliminary studies were obtained when the patient was admitted that showed evidence of severe arterial disease to the left lower extremity. Vascular surgery was consulted and intervened establishing better blood flow to the left lower extremity. Once cleared by vascular surgery and medicine team, we moved forward with surgical intervention to rid the patient of her bone infection to the 2nd and 3rd digit to the left foot as well as surgical skin graft site prep with application of skin graft full-thickness wound to the dorsal aspect of the left foot. All risk and benefits were discussed with patient and family in great detail. Patient agreed to move forward with surgical intervention during hospital stay. Due to severity of the bone infection in the lesser digits of the left foot and nature of the full-thickness wound to the dorsal aspect of the left foot, it was deemed necessary at this time to performed above procedures to help rid the patient of bone infection and heal her chronic full-thickness wound. It was also discussed with the patient that if she loses tissue to the distal aspect of the left foot we would need to move forward with a transmetatarsal amputation as an outpatient which she is understanding of. The nature of the problem, anticipated procedures, postop recovery/convalences and risk/complications include but not limited to infection, wound healing complications, digital amputation, hypertrophic scarring, numbness, tingling, chronic pain, CRPS, over and under correction, recurrence of deformity, DVT and or PE and the need for further surgery have been discussed in great detail with the patient. All questions have been answered to the patient's satisfaction. There are no guarantees given as to the outcome of the procedure. Description of Procedure: Under mild sedation, the patient was brought into the operating room and placed on the operating table in supine position. Once the patient was under monitored anesthesia care anesthesia, the left lower extremity was blocked using approximately 20 cc 0.5% Marcaine plain. No tourniquet was used for this case. Next, the left lower extremity was prepped and draped in normal aseptic manner. Next, a timeout was then undertaken verifying the correct patient, extremity, visibility of preoperative markings, availability of the equipment. Procedure #1: Incision bone cortex, second digit, left foot (CPT code: 91996?T1) Next, attention was directed to the level of the second digit, using a sterile skin marker, a longitudinal incision was marked out over the second metatarsal phalangeal joint and down to the tip of the second digit. Next using a #15 blade a full-thickness incision down to bone was obtained. Continued blunt and sharp dissection were carried down to the level of bone. The distal intermediate and proximal phalanx were disarticulated passed the back table to be half for microbiology culture and sensitivity and the other half for pathology. Decent sanguinous drainage was appreciated. All necrotic tissue was also removed with rongeur. The incision was flushed with copious normal saline. Procedure #2: Incision bone cortex, third digit, left foot (CPT code: 08611?T2) Next, attention was directed to the level of the third digit, using a sterile skin marker, a longitudinal incision was marked out over the third metatarsal phalangeal joint down to the tip of the third digit. It was noted that there was a large laceration with exposed bone at this time. Using a #15 blade, a full-thickness incision down to bone was obtained. Continued blunt and sharp dissection were carried down to the level of bone. The intermediate and proximal phalanx were disarticulated passed the back table to be half for microbiology culture and sensitivity and the other half for pathology. Decent sanguinous drainage was appreciated. All necrotic tissue was removed with rongeur. The incision was flushed with copious normal saline. Procedure #3: Advancement flap closure, second digit, left foot (CPT code: 64992?T1) Next, attention was redirected back to the open incision to the second digit. Undermining was obtained to allow for advancement flap closure. The deep layer was reapproximated closed with 4-0 Vicryl in running locking suture technique. The subcutaneous layer was reapproximated and closed with 4-0 Vicryl in running suture technique. The skin was reapproximated via advancement flap closure and reapproximated using 4-0 nylon in simple interrupted suture technique. Procedure #4: Advancement flap closure, third digit, left foot (CPT code: 54817?T2) Next, attention was redirected back to the open incision to the third digit. Undermining was obtained to allow for advancement flap closure. The deep layer was reapproximated closed with 4-0 Vicryl in running locking suture technique. The subcutaneous layer was reapproximated and closed with 4-0 Vicryl in running suture technique. The skin was reapproximated via advancement flap closure and reapproximated using 4-0 nylon in simple interrupted suture technique. Procedure #5: Surgical skin graft site prep, left foot (CPT code: 73505) Next, attention was directed to the full-thickness wound to the dorsal aspect of left foot. Using the ultrasonic Misonix debrider, surgical skin graft site prep down to and including subcutaneous tissue was performed without incident. After debridement was completed there was evidence of sanguinous drainage. Predebridement measurement was eschar. Post right measurement was 6.7 x 4.2 x 0.1 cm. The area was wiped clean and patted dry. Procedure #6: Application of skin graft substitute, left foot (CPT code: 82859) Next, 4 x 4 centimeter BioSkin by [employer]ge Style was applied per the oil well directional surveyor's recommendation. Adaptic was applied over the BioSkin and secured in place with half-inch Steri-Strips and bolster dressing. Next, the left lower extremities were cleaned and patted dry. The incisions were dressed with Betadine soaked Adaptic all Adaptic and Betadine soaked Adaptic were covered with 4 x 4 dry sterile dressing, Kerlix wrap and a single layer Gross with light compression was donned to the left lower extremity. The patient tolerated the procedure and anesthesia well and apparent satisfactory condition and was transported to the PACU for further monitoring prior to discharge back to the floor. Vital signs stable and vascular status intact to all digits bilateral. Post Operative Plan: Cultures: Incision bone cortex second digit, third digit sent for microbiology culture and sensitivity and pathology. Weightbearing: Patient can be partial weightbearing to heel only to left lower extremity with surgical shoe. Full weightbearing right lower extremity. Antibiotics: As prescribed on the floor. DVT Prophylaxis: Lovenox Stinson: None Dressin x 4 right medical BioSkin to the dorsum of the left foot, Adaptic and half-inch Steri-Strip with bolster dressing, Betadine soaked Adaptic to the incision over the second and third digit incisions, dry sterile dressing and a single layer light compression bandage was donned. X-Rays: Post-operative films taken on the operating room. Pain Medication: Per medicine Follow-up: From a podiatry perspective the patient can discharge home when she is cleared by medicine and vascular team. Would recommend 2 weeks of oral antibiotics from culture and sensitivity or would recommend infectious disease consultation for antibiotic recommendation when bone cultures return. Surgical Findings: 1. Evidence of periosteal reaction to the head of the proximal phalanx 2nd and 3rd digit, left foot 2. Healthy sanguinous drainage appreciated to all incisions and full-thickness wound after debridement, left foot 3. Advancement flap closure, 2nd and 3rd digit, left foot Complications Complications: No Admit VTE Documentation VTE Present on Admission: No VTE Mechan Device Prophylaxis: SCD's VTE Pharm Prophylaxis ordered?: Yes
--- NOTE | 2025-01-22 12:00 | AMP_PTH ---
PATIENT: CLAYTON ALVAREZ LOC: 3 U#:[id number] AGE/SX: 69/F ROOM: [facility] [place] RE01/18/[address]: Dr. Balaji Myers MD : 1955 BED: 1 DIS: 01/25/2025 SPEC #: [id number] RECD: 01/22/25 16:04 STATUS: TORI REJesse #: [id number] CLARITA: 01/22/25 12:[address]: Cristobal Lee DEPT: SURGICAL PATHOLOGY RECD BY: Abhishek Sanders ENTERED: 01/25/25 08:39 SP TYPE: Amputation OTHR DR: DO Dr. Errol Elizondo MD Dr. Nana Yaa Koram, MD Dr. Prakash Chand, MD Dr. Robert Leininger, MD Amanda Sue Kapper, DAMAGE CUTTER-C Tissues: A - Toe, NOS B - Toe, NOS Procedures: Decalcification bone/plaque Surgery Specimen Level IV Comments: @ Ordering doctor for DEC edited from to @ juanpablo LINDA at 01/25/25 39 @ Ordering doctor for SUIV edited from to @ juanpablo LINDA at 01/25/25 0839 @ Submitting doctor edited from to @ juanpablo LINDA at 01/25/25 0839 HEADER OPERATION: Incision of cortex with advancement flap closure PRE-OP DIAGNOSIS: Non-pressure chronic ulcer of other part of left foot with necrosis of bone TISSUE SUBMITTED: A- Bone cortex of left 2nd toe, B- Bone cortex of left 3rd toe MICROSCOPIC DIAGNOSIS A. Bone, 2nd left toe, resection: * Skin with abscess. * Articular bone with suppurative osteomyelitis. B. Bone, 3rd left toe, resection: * Skin with ulcer and abscess. * Articular bone with focal fibrosis and mild chronic inflammation - see note. Note: The findings suggest chronic osteomyelitis. Recommend correlation with clinical and imaging findings. MICROSCOPIC DESCRIPTION Slides are reviewed. GROSS DESCRIPTION Received in 2 formalin containers labeled the patient's name and date of .? Designated as: ? A. Bone cortex of 2nd left toe is a disrupted digit in multiple pieces, collectively measuring 5.5 x 3.3 x 1.6 cm in aggregate.? The skin fragments range from jimenez and slightly wrinkled to jones-green and necrotic.? The bone fragments are irregular with predominantly yellow medullary bone.? Chain Maker Hand sections of the bone and the necrotic skin are submitted in 1 cassette, following decalcification. B.? Bone cortex of the 3rd left toe is a disrupted digit in multiple pieces, collectively measuring 4.1 x 3.2 x 1.8 cm in aggregate.? The skin is jimenez and wrinkled with focal necrosis.? The bone fragments are irregular with predominantly yellow medullary bone.? Chain Maker Hand sections of the bone and the necrotic skin are submitted in 1 cassette, following decalcification. SD 01/25/2025 B. Additional sales representative sales manager sections of the bone are submitted in cassette B2, following histopathologic review and decalcification. SD 02/03/2025 CPT:16780k2,04254a6
--- NOTE | 2025-01-22 12:17 | PN_ITS ---
Subjective Subjective Patient seen and examined. Her is by her bedside. She complaints. She is due for surgery this morning. Review of systems otherwise negative. Objective Data Objective Data Vital Signs: Vital Signs Temp Pulse Resp BP Pulse Ox O2 Del Method O2 Flow Rate 98.3 F 83 18 154/71 H 94 Room Air 95 01/22/25 11:23 01/22/25 11:23 01/22/25 11:23 01/22/25 11:23 01/22/25 11:23 01/22/25 08:15 01/22/25 11:23 Oxygen Flow Rate (L/min) 95 Oxygen Delivery Method Room Air Weight: 206 lb Body Mass Index (BMI) 33.2 Intake & Output: Intake and Output for Last 24 Hours 01/20/25 01/21/25 01/22/25 23:59 23:59 23:59 Intake Total 600 / 600 550 / 550 300 / 300 Balance 600 / 600 550 / 550 300 / 300 Lab / Micro Data 01/22/25 05:50 01/22/25 05:50 Labs: Laboratory Results - last 24 hr 01/21/25 16:38: POC Glucose 330 H 01/21/25 22:26: POC Glucose 207 H 01/22/25 01:36: Vancomycin Trough 17.7 H 01/22/25 05:50: WBC 10.1, RBC 3.57 L, Hgb 10.5 L, Hct 30.0 L, MCV 84.0, MCH 29.4, MCHC 35.0, RDW Std Deviation 37.2, RDW Coeff of Rosalie 12.2, Plt Count 302, MPV 9.4, Immature Gran % (Auto) 0.300, Neut % (Auto) 65.8, Lymph % (Auto) 18.1 L , [place] % (Auto) 10.4 H, Eos % (Auto) 4.9, Baso % (Auto) 0.5, Absolute Neuts (auto) 6.6, Absolute Lymphs (auto) 1.82, Nucleated RBC % 0, Sodium 136, Potassium 3.4, Chloride 101, Carbon Dioxide 20.8 L, Anion Gap 14, BUN 22 H, Creatinine 0.87, Estim Creat Clear Calc 70.29, Est GFR (MDRD) Non-Af 72, B UN/Creatinine Ratio 25.8 H, Glucose 182 H, Calcium 8.9 01/22/25 06:22: POC Glucose 201 H 01/22/25 08:14: POC Glucose 211 H Micro: Microbiology 01/18/25 17:19 Wound - Left Foot Gram Stain - Final 01/18/25 17:19 Wound - Left Foot Wound Culture - Final Citrobacter freundii Staphylococcus aureus Staphylococcus epidermidis 01/18/25 17:19 Wound - Left Foot Anaerobic Culture - Preliminary 01/18/25 12:05 Blood Culture (Wb) - Anticubital Left Blood Culture - Preliminary No growth in 48 hours. 01/18/25 12:16 Blood Culture (Wb) - Anticubital Left Blood Culture - Preliminary No growth in 48 hours. Physical Exam Const alert, oriented x3 and no apparent distress Constitutional Narrative: class II obesity General Appearance: cooperative and comfortable HEENT normocephalic, head/scalp atraumatic and hearing grossly normal bilaterally Eyes PERRL, EOMs intact bilaterally and conjunctivae normal Neck full ROM, supple and no JVD Lymph Lymphatic: no lymphedema noted Chest inspection of chest normal Resp normal respiratory effort, normal air movement, no use of accessory muscles and clear to auscultation bilaterally Cardio regular rate, regular rhythm, S1 normal heart sound, S2 normal heart sound, no murmurs and peripheral pulses 2+ throughout GI normal to inspection, nondistended, normoactive bowel sounds, soft to palpation, non-tender and non-distended Back/Spine normal ROM Extremity Extremity Narrative: right foot wrapped in bandage. General Extremity: no tenderness to palpation of joints or extremities Skin Skin Narrative: as under extremities Neuro CN's II-XII intact bilaterally, no focal motor deficits and no sensory deficits noted Motor Exam: general weakness Psych mental status grossly normal, thought process normal and cooperative Appearance: appropriate Assessment & Plan Assessment/Plan (1) Diabetic infection of left foot: (2) Acute painful diabetic polyneuropathy: PLAN: Plan #Left diabetic foot infection * Was admitted with a complaint of worsening left foot wound with redness and swelling. CRP was elevated. * X-ray of the left foot shows soft tissue swelling with concern for osteomyelitis. He had bedside debridement of the foot by podiatry on 01/18/2025. Cultures sent. Currently on IV vancomycin and Zosyn. * Arterial studies done today showed severe arterial insufficiency in the left lower extremity with ankle-brachial index of 0.36 and moderate arterial insufficiency in right lower extremity with ankle-brachial index of 0.65. * had angiogram with angioplasty and stent of the left SFA and popliteal arteries. * for surgery by podiatry today * #Hypokalemia: resolved. K is 3.4. #TYpe 2 diabetes mellitus * A1c is 9.6. On glimepiride which is on hold. Insulin sliding scale. Accu- Cheks ACHS. * Is unclear whether patient has really been taking her insulin at home. * She claims her insulin at home causes her blood sugars to go higher and claims compliance. * will place on long acting insulin after the surgery. #History of CAD: * Cardiac stents placed in October of this year. * Had two-vessel disease per Cardiac cath involving the LAD, diagonal vessel and circumflex artery and had stents placed then. * On aspirin, Plavix # Hypertension: On amlodipine, hydrochlorothiazide and lisinopril Class I obesity: BMI 33. Complicates acute care, expected recovery and prognosis #DVT prophylaxis: Lovenox Charges/Coding Visit Charges Inpatient E&M: 84865 Subs Hosp L2
--- NOTE | 2025-01-22 12:26 | RAD_ITS ---
PROCEDURE: FOOT 1 VIEW 01/22/2025 REASON FOR EXAM: INCISION ON CORTEX WITH ADVANCEMENT FLAP CLOSURE, 2ND, 3RD, DIGIT TECHNIQUE: FOOT 1 VIEW COMPARISON: Foot radiographs 01/18/2025. FINDINGS: Bones: Intraoperative radiographic imaging of the forefoot was obtained. 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 Prior amputation of the proximal 1st metatarsal. Soft tissues: Soft tissue swelling. Other: No radiopaque foreign body on the visualized field of view. RAD/Foot 2 Views IMPRESSION: Intraoperative imaging as described. Reading Location: [id number]
[2025-01-22] MEDS: Bupivacaine Mpf 0.5% 30 ML VIAL (13:00)
--- NOTE | 2025-01-22 14:09 | PCM.POST.ANE ---
Anesthesia: Postop Eval I Current Vital Signs Temperature: 98.1 F Pulse Rate: 64 Blood Pressure: 145/76 Respiratory Rate: 16 Pulse Ox: 98 Oxygen Delivery Method: Room Air Assessment Airway patent: Yes Spontaneous unlabored respirations: Yes Mental status: Awake and Calm nausea: No Vomiting: No Anesthesia Complication: No Fluid Hydration Crystalloid volume administer (ml): 200 Total IV fluid infused: 200 Progress Note Anesthesia document: Postop Eval 1 completed: Yes
--- NOTE | 2025-01-22 15:18 | POSTOPAN2_ITS ---
Anesthesia Postop Eval I Sum Postop Eval Completion status Anesthesia document: Postop Eval 1 completed: Yes Anesthesia Postop Eval I Summary Anesthesia Postop Eval I Summary: Anesthesia Postop Eval I: Assessment Summary Airway patent Yes 01/22/25 14:09 AUTOMOBILE OR TRUCK RENTAL [email or web address] Spontaneous unlabored Yes 01/22/25 14:09 AUTOMOBILE OR TRUCK RENTAL DISPATCHERROSE MARIE respirations Mental status Awake,Calm 01/22/25 14:09 AUTOMOBILE OR TRUCK RENTAL DISPATCHER.[email or web address] nausea No 01/22/25 14:09 AUTOMOBILE OR TRUCK RENTAL DISPATCHER.SOLE Vomiting No 01/22/25 14:09 AUTOMOBILE OR TRUCK RENTAL DISPATCHERROSE MARIE Anesthesia Postop Eval I: Fluid Summary Crystalloid volume administer 200 01/22/25 14:09 AUTOMOBILE OR TRUCK RENTAL DISPATCHER.SOLE (ml) Colloids volume administered ( ml) Blood Product volume administered (ml) Total IV fluid infused 200 01/22/25 14:09 AUTOMOBILE OR TRUCK RENTAL DISPATCHERROSE MARIE Anesthesia Postop Eval I: Summary Notes Anesthesia Complication No 01/22/25 14:09 ODALYS Anesthesia Complication Comment: Post-operative progress note Anesthesia: Postop Eval II Evaluation Mental status: Awake Pain Level: 0 nausea: No Vomiting: No
--- NOTE | 2025-01-22 15:18 | PCM.POSTANE2 ---
Anesthesia Postop Eval I Sum Postop Eval Completion status Anesthesia document: Postop Eval 1 completed: Yes Anesthesia Postop Eval I Summary Anesthesia Postop Eval I Summary: Anesthesia Postop Eval I: Assessment Summary Airway patent Yes 01/22/25 14:09 PARCEL [email or web address] Spontaneous unlabored Yes 01/22/25 14:09 PARCEL CONTRACTORROSE MARIE respirations Mental status Awake,Calm 01/22/25 14:09 PARCEL [email or web address] nausea No 01/22/25 14:09 PARCEL CONTRACTOR.SOLE Vomiting No 01/22/25 14:09 PARCEL CONTRACTORROSE MARIE Anesthesia Postop Eval I: Fluid Summary Crystalloid volume administer 200 01/22/25 14:09 PARCEL CONTRACTOR.SOLE (ml) Colloids volume administered ( ml) Blood Product volume administered (ml) Total IV fluid infused 200 01/22/25 14:09 PARCEL CONTRACTORROSE MARIE Anesthesia Postop Eval I: Summary Notes Anesthesia Complication No 01/22/25 14:09 ODALYS Anesthesia Complication Comment: Post-operative progress note Anesthesia: Postop Eval II Evaluation Mental status: Awake Pain Level: 0 nausea: No Vomiting: No
--- NOTE | 2025-01-22 15:47 | PCM.PN.SRG ---
Subjective Subjective I saw patient this afternoon following surgery with podiatry. She reported her pain was well-controlled, she had no complaints. In review of Dr. Lee's operative report it appears there was good bleeding at the surgical sites. Objective Data Objective Data Vital Signs: Vital Signs Temp Pulse Resp BP Pulse Ox O2 Del Method O2 Flow Rate 97 F L 75 16 152/57 H 96 Nasal Cannula 2 01/22/25 15:00 01/22/25 15:00 01/22/25 15:00 01/22/25 15:00 01/22/25 15:00 01/22/25 15:00 01/22/25 15:00 Oxygen Flow Rate (L/min) 2 Oxygen Delivery Method Nasal Cannula Weight: 206 lb Body Mass Index (BMI) 33.2 Intake & Output: Intake and Output for Last 24 Hours 01/20/25 01/21/25 01/22/25 23:59 23:59 23:59 Intake Total 600 / 600 550 / 550 300 / 300 Output Total 5 / 5 Balance 600 / 600 550 / 550 295 / 295 Lab / Micro Data 01/22/25 05:50 01/22/25 05:50 Labs: Laboratory Results - last 24 hr 01/21/25 16:38: POC Glucose 330 H 01/21/25 22:26: POC Glucose 207 H 01/22/25 01:36: Vancomycin Trough 17.7 H 01/22/25 05:50: WBC 10.1, RBC 3.57 L, Hgb 10.5 L, Hct 30.0 L, MCV 84.0, MCH 29.4, MCHC 35.0, RDW Std Deviation 37.2, RDW Coeff of Rosalie 12.2, Plt Count 302, MPV 9.4, Immature Gran % (Auto) 0.300, Neut % (Auto) 65.8, Lymph % (Auto) 18.1 L, [place] % (Auto) 10.4 H, Eos % (Auto) 4.9, Baso % (Auto) 0.5, Absolute Neuts (auto) 6.6, Absolute Lymphs (auto) 1.82, Nucleated RBC % 0, Sodium 136, Potassium 3.4, Chloride 101, Carbon Dioxide 20.8 L, Anion Gap 14, BUN 22 H, Creatinine 0.87, Estim Creat Clear Calc 70.29, Est GFR (MDRD) Non-Af 72, BUN/Creatinine Ratio 25.8 H, Glucose 182 H, Calcium 8.9 01/22/25 06:22: POC Glucose 201 H 01/22/25 08:14: POC Glucose 211 H Micro: Microbiology 01/18/25 17:19 Wound - Left Foot Gram Stain - Final 01/18/25 17:19 Wound - Left Foot Wound Culture - Final Citrobacter freundii Staphylococcus aureus Staphylococcus epidermidis 01/18/25 17:19 Wound - Left Foot Anaerobic Culture - Preliminary 01/18/25 12:05 Blood Culture (Wb) - Anticubital Left Blood Culture - Preliminary No growth in 48 hours. 01/18/25 12:16 Blood Culture (Wb) - Anticubital Left Blood Culture - Preliminary No growth in 48 hours. Physical Exam Const alert, oriented x3 and no apparent distress General Appearance: cooperative and comfortable HEENT normocephalic, head/scalp atraumatic, hearing grossly normal bilaterally, external ears normal and external nose normal Eyes EOMs intact bilaterally General Eye: normal appearance of both eyes Neck General: normal visual inspection and trachea midline Resp normal respiratory effort, normal air movement, no retractions and no use of accessory muscles Effort and Inspection: able to speak in complete sentences; Negative for labored, grunting or stridor Cardio Rate: regular rate Rhythm: regular rhythm Extremity Extremity Narrative: L foot with postoperative dressings in place Neuro oriented x3, moves all extremities and no focal motor deficits Speech: speech normal Psych mental status grossly normal Appearance: grossly normal Attitude: calm and engaged Activity / Motor Behavior: appropriate eye contact Speech: normal speech Mood & Affect: euthymic mood Assessment & Plan Assessment/Plan (1) Atherosclerosis of left lower extremity with gangrene: PLAN: She is s/p LLE angiogram with successful revascularization via L SFA angioplasty and stent 01/20/25. No concerns at the access site. She had L toe amputations today, satisfactory bleeding noted during surgery. Will plan for outpatient follow-up in the office in 2-3 weeks. Continue ASA and Plavix. OK for discharge from vascular perspective, planning per primary team. Charges/Coding Visit Charges Inpatient E&M: 74290 Subs Hosp L1
[2025-01-22] MEDS: Insulin Lispro 100 UNIT/ML INSULN.PEN SC ×2 (16:21→21:44)
[2025-01-22 16:39] LABS: Bedside Glucose 177 mg/dL (74-106)
[2025-01-22] MEDS: Acetaminophen 325 MG Tablet 650 MG PO (17:56)
[2025-01-22] MEDS: oxyCODONE 5 MG Tablet PO (21:42)
[2025-01-22] MEDS: Nystatin Powder 15gm Bottle 1 APPLIC TOPICAL (21:43)
[2025-01-22 22:09] LABS: Bedside Glucose 232 mg/dL (74-106)
[2025-01-23] MEDS: Acetaminophen 325 MG Tablet 650 MG PO ×3 (02:00→22:47)
[2025-01-23] MEDS: Vancomycin IV 1,000 MG/200 ML BAG 200 MG IV ×2 (02:01→13:44)
[2025-01-23 02:15] VITALS: BP 147/67; PULSE 85; RESP 16; TEMP 36.6; O2SAT 94
[2025-01-23] MEDS: Piperacil/Tazobactam 3.375 GM in 0.9% Normal Saline (50mL MB+) 50 ML IV ×3 (06:13→22:38)
[2025-01-23] MEDS: Insulin Lispro 100 UNIT/ML INSULN.PEN SC ×4 (06:16→22:40)
[2025-01-23 06:37] LABS: Bedside Glucose 179 mg/dL (74-106)
[2025-01-23 06:47] LABS: Absolute Lymphocyte Count 2.19 X10^3/uL (0.83-4.51); Absolute Neutrophil Count 7.8 X10^3/uL (2.0-7.7); Basophil# 0.05 X10^3/uL; Basophil% 0.4 % (0-1); Eosinophil# 0.46 X10^3/uL; Eosinophils% 3.9 % (0-5); Hematocrit 31.9 % (37-47); Hemoglobin 10.8 g/dL (12.0-15.0); Lymphocyte # 2.19 X10^3/ul (0.83-4.51); Lymphocyte % 18.8 % (19-41); Mean Corp Hgb Conc 33.9 g/dL (32-36); Mean Corpuscular Hgb 29.2 pg (27.0-32.0); Mean Corpuscular Volume 86.2 fL (81-99); Mean Platelet Vol. 9.4 fl (6.2-12.0); Monocyte# 1.09 X10^3/uL; Monocyte% 9.4 % (0-10); NRBC Flagged by Analyzer 0 % (0-5); Neutrophil # 7.83 X10^3/uL (2.7-7.7); Neutrophil % 67.2 % (47-70); Platelet Count 302 K/mm3 (150-450); RBC Distribution Width CV 12.4 % (11.6-14.6); RBC Distribution Width SD 38.9 fl (35.1-43.9); White Blood Count 11.7 K/mm3 (4.4-11.0)
[2025-01-23 07:00] LABS: Anion Gap 12 (5-15); BUN 28 mg/dL (4-19); BUN/Creat Ratio 27.5 RATIO (10-20); Calcium,Total 9.1 mg/dL (7.6-11.0); Carbon Dioxide 22.6 mmol/L (21.0-32.0); Chloride 99 mmol/L (98-108); Creatinine, Serum 1.03 mg/dL (0.70-1.20); EST Glomerular Filtration Rate 59 (>60); Estimated Creatinine Clearance 59.37 ml/min (50-250); Glucose 173 mg/dL (70-99); Potassium 4.1 mmol/L (3.3-5.1); Sodium Level 134 mmol/L (133-145)
[2025-01-23 08:50] VITALS: O2SAT 94
[2025-01-23] MEDS: Aspirin 81 MG TAB.CHEW PO (09:27)
[2025-01-23] MEDS: amLODIPine 5 MG Tablet PO (09:29)
[2025-01-23] MEDS: Lisinopril 20 MG Tablet PO (09:29)
[2025-01-23] MEDS: Nystatin Powder 15gm Bottle 1 APPLIC TOPICAL ×2 (09:30→22:41)
[2025-01-23] MEDS: hydroCHLOROthiazide 25 MG Tablet PO (09:30)
[2025-01-23] MEDS: Clopidogrel Bisulfate 75 MG Tablet PO (09:30)
[2025-01-23] MEDS: Enoxaparin 40 MG/0.4 ML Syringe SC (09:32)
[2025-01-23 09:42] VITALS: BP 149/32; PULSE 89; RESP 16; TEMP 36.7; O2SAT 99
--- NOTE | 2025-01-23 10:43 | PCM.PN.SRG ---
Subjective Subjective Patient is a 69-year-old diabetic female seen at bedside today for follow-up evaluation of status post incision bone cortex to the 2nd and 3rd digit with advancement flap closure to the 2nd and 3rd digit with skin graft substitute application to the left foot. DOS: 01/22/2025. Patient is doing well. She left her dressing clean dry and intact. Rates her pain as 3 out of 10 on the pain scale. No acute events overnight. Family at bedside. Denies trauma. Denies constitutional symptoms. No other pedal complaints at this time. Objective Data Objective Data Vital Signs: Vital Signs Temp Pulse Resp BP Pulse Ox O2 Del Method O2 Flow Rate 98.1 F 89 16 149/32 H 99 Room Air 2 01/23/25 09:42 01/23/25 09:42 01/23/25 09:42 01/23/25 09:42 01/23/25 09:42 01/23/25 09:51 01/22/25 15:00 Oxygen Flow Rate (L/min) 2 Oxygen Delivery Method Room Air Weight: 93.44 kg Body Mass Index (BMI) 33.2 Intake & Output: Intake and Output for Last 24 Hours 01/21/25 01/22/25 01/23/25 23:59 23:59 23:59 Intake Total 550 / 550 662.75 / 662.75 250 / 250 Output Total 5 / 5 Balance 550 / 550 657.75 / 657.75 250 / 250 Lab / Micro Data 01/23/25 06:03 01/23/25 06:03 Labs: Laboratory Results - last 24 hr 01/22/25 16:20: POC Glucose 177 H 01/22/25 21:37: POC Glucose 232 H 01/23/25 06:03: WBC 11.7 H, RBC 3.70 L, Hgb 10.8 L, Hct 31.9 L, MCV 86.2, MCH 29.2, MCHC 33.9, RDW Std Deviation 38.9, RDW Coeff of Rosalie 12.4, Plt Count 302, MPV 9.4, Immature Gran % (Auto) 0.300, Neut % (Auto) 67.2, Lymph % (Auto) 18.8 L, [place] % (Auto) 9.4, Eos % (Auto) 3.9, Baso % (Auto) 0.4, Absolute Neuts (auto) 7.8 H, Absolute Lymphs (auto) 2.19, Nucleated RBC % 0, Sodium 134, Potassium 4.1, Chloride 99, Carbon Dioxide 22.6, Anion Gap 12, BUN 28 H, Creatinine 1.03, Estim Creat Clear Calc 59.37, Est GFR (MDRD) Non-Af 59 L, BUN/Creatinine Ratio 27.5 H, Glucose 173 H, Calcium 9.1 01/23/25 06:12: POC Glucose 179 H Micro: Microbiology 01/22/25 13:24 Bone - 3rd Toe Wound Culture - Preliminary Staphylococcus species Gram positive organism Gram negative nikko 01/22/25 13:24 Bone - 2nd Toe Wound Culture - Preliminary Staphylococcus aureus 01/18/25 17:19 Wound - Left Foot Gram Stain - Final 01/18/25 17:19 Wound - Left Foot Wound Culture - Final Citrobacter freundii Staphylococcus aureus Staphylococcus epidermidis 01/18/25 17:19 Wound - Left Foot Anaerobic Culture - Preliminary 01/18/25 12:05 Blood Culture (Wb) - Anticubital Left Blood Culture - Preliminary No growth in 48 hours. 01/18/25 12:16 Blood Culture (Wb) - Anticubital Left Blood Culture - Preliminary No growth in 48 hours. Radiography Diagnostic Testing: Radiology Impression Foot X-Ray 01/22/25 12:26 IMPRESSION: Intraoperative imaging as described. Reading Location: [facility] Physical Exam Narrative Neurovascular status is unchanged. Nonpitting edema appreciated to the left lower extremity. Status post incision bone cortex with advancement flap closure to the 2nd and 3rd digit with skin graft substitute applied to the left foot. Blanchable erythema is appreciated to the distal left foot. No drainage no malodor or. Negative probe to bone. No sign of infection to left lower extremity. No pain with calf compression to left lower extremity. Const oriented x3 and no apparent distress Assessment & Plan Assessment/Plan (1) Diabetic infection of left foot: PLAN: Patient was examined and evaluated. All findings were discussed with the patient. All questions were answered to the patient satisfaction. Patient is status post incision bone cortex with advancement flap closure to the 2nd and 3rd digit, with amniotic skin graft substitute all to the left lower extremity. DOS: 01/22/2025. Patient is recovering well. Dressing change was done today at bedside with family present. The incisions were dressed with Betadine soaked Adaptic the skin graft was left with a Adaptic clean dry and intact, followed by dry sterile dressing and light compression wrap to left lower extremity. Patient's [id number] will perform dressing changes as needed. I educated the patient as well as the family on postoperative course. They will purchase Rony at the cafeteria prior to discharge. She will keep her blood sugar well-controlled, between 100 to 150 mg/dL. I did educate the patient and the family that if she is not well-controlled and we have breakdown the skin we will need to move forward with a transmetatarsal amputation with tendo Achilles lengthening to the left lower extremity. They are understanding of this. Culture (bone, second digit): Staph aureus Culture (bone, third digit): Staphylococcus species, gram-positive organisms, gram-negative nikko Wound culture (01/18/2025) Citrobacter freundii, Staph aureus, Staphylococcus epidermidis I recommend infectious disease consultation for antibiotic coverage prior to discharge. WBC: 11.7 HbA1c: 9.6 Glucose: 179 Medicine: On board, medical management, IV antibiotics vancomycin and Zosyn Vascular surgery: On board, continuing ASA and Plavix. Okay to discharge from a vascular perspective. After patient was seen and dressing change was performed today at bedside to left lower extremity, the patient is cleared from podiatry perspective to discharge home. Recommend infectious disease consultation for oral antibiotic coverage prior to discharge. Patient will follow-up in private office 1 week post discharge. Please change patient's dressing to left lower extremity prior to discharge. Please leave Adaptic over the skin graft intact and do not remove. Dressing change orders are in. Podiatry will continue to follow the patient while in house but at a distance. Please reach out to Dr. Lee with any questions or concerns. (2) Non-pressure chronic ulcer of other part of left foot with necrosis of bone: (3) Other specified peripheral vascular diseases:
[2025-01-23] MEDS: Insulin Glargine-YFGN 100 UNIT/ML Pen 10 UNIT SC (11:17)
[2025-01-23 11:42] LABS: Bedside Glucose 301 mg/dL (74-106)
--- NOTE | 2025-01-23 12:26 | PN_ITS ---
Subjective Subjective Patient seen and examined. She had no complaints. Her pain was well- controlled. She is postop day 1 for surgery on her left foot. Review of systems otherwise negative. She has remained hemodynamically stable. WBCs 11.7 today. Objective Data Objective Data Vital Signs: Vital Signs Temp Pulse Resp BP Pulse Ox O2 Del Method O2 Flow Rate 98.1 F 89 16 149/32 H 99 Room Air 2 01/23/25 09:42 01/23/25 09:42 01/23/25 09:42 01/23/25 09:42 01/23/25 09:42 01/23/25 09:51 01/22/25 15:00 Oxygen Flow Rate (L/min) 2 Oxygen Delivery Method Room Air Weight: 206 lb Body Mass Index (BMI) 33.2 Intake & Output: Intake and Output for Last 24 Hours 01/21/25 01/22/25 01/23/25 23:59 23:59 23:59 Intake Total 550 / 550 662.75 / 662.75 750 / 750 Output Total 5 / 5 Balance 550 / 550 657.75 / 657.75 750 / 750 Lab / Micro Data 01/23/25 06:03 01/23/25 06:03 Labs: Laboratory Results - last 24 hr 01/22/25 16:20: POC Glucose 177 H 01/22/25 21:37: POC Glucose 232 H 01/23/25 06:03: WBC 11.7 H, RBC 3.70 L, Hgb 10.8 L, Hct 31.9 L, MCV 86.2, MCH 29.2, MCHC 33.9, RDW Std Deviation 38.9, RDW Coeff of Rosalie 12.4, Plt Count 302, MPV 9.4, Immature Gran % (Auto) 0.300, Neut % (Auto) 67.2, Lymph % (Auto) 18.8 L , [place] % (Auto) 9.4, Eos % (Auto) 3.9, Baso % (Auto) 0.4, Absolute Neuts (auto) 7.8 H, Absolute Lymphs (auto) 2.19, Nucleated RBC % 0, Sodium 134, Potassium 4.1, Chloride 99, Carbon Dioxide 22.6, Anion Gap 12, BUN 28 H, Creatinine 1.03, Estim Creat Clear Calc 59.37, Est GFR (MDRD) Non-Af 59 L, BUN/Creatinine Ratio 27.5 H, Glucose 173 H, Calcium 9.1 01/23/25 06:12: POC Glucose 179 H 01/23/25 11:15: POC Glucose 301 H Micro: Microbiology 01/22/25 13:24 Bone - 3rd Toe Wound Culture - Preliminary Staphylococcus species Gram positive organism Gram negative nikko 01/22/25 13:24 Bone - 2nd Toe Wound Culture - Preliminary Staphylococcus aureus 01/18/25 17:19 Wound - Left Foot Gram Stain - Final 01/18/25 17:19 Wound - Left Foot Wound Culture - Final Citrobacter freundii Staphylococcus aureus Staphylococcus epidermidis 01/18/25 17:19 Wound - Left Foot Anaerobic Culture - Preliminary 01/18/25 12:05 Blood Culture (Wb) - Anticubital Left Blood Culture - Preliminary No growth in 48 hours. 01/18/25 12:16 Blood Culture (Wb) - Anticubital Left Blood Culture - Preliminary No growth in 48 hours. Radiography Diagnostic Testing: Radiology Impression Foot X-Ray 01/22/25 12:26 IMPRESSION: Intraoperative imaging as described. Reading Location: [facility] Physical Exam Const alert, oriented x3 and no apparent distress Constitutional Narrative: class II obesity General Appearance: cooperative and comfortable HEENT normocephalic, head/scalp atraumatic, hearing grossly normal bilaterally, nasal mucous membranes and turbinates normal, moist oral mucous membranes and oropharynx normal Eyes PERRL, EOMs intact bilaterally and conjunctivae normal Neck full ROM, supple and no JVD Lymph Lymphatic: no lymphedema noted Chest inspection of chest normal Resp normal respiratory effort, normal air movement, no use of accessory muscles and clear to auscultation bilaterally Cardio regular rate, regular rhythm, S1 normal heart sound, S2 normal heart sound, no murmurs and peripheral pulses 2+ throughout GI normal to inspection, nondistended, normoactive bowel sounds, soft to palpation, non-tender and non-distended Back/Spine normal ROM Extremity Extremity Narrative: right foot wrapped in bandage. General Extremity: no tenderness to palpation of joints or extremities Skin no rashes or lesions noted Skin Narrative: as under extremities Neuro CN's II-XII intact bilaterally, no focal motor deficits and no sensory deficits noted Motor Exam: general weakness Psych mental status grossly normal, thought process normal and cooperative Appearance: appropriate Assessment & Plan Assessment/Plan (1) Diabetic infection of left foot: (2) Acute painful diabetic polyneuropathy: PLAN: Plan #Left diabetic foot infection * Was admitted with a complaint of worsening left foot wound with redness and swelling. CRP was elevated. * X-ray of the left foot shows soft tissue swelling with concern for osteomyelitis. He had bedside debridement of the foot by podiatry on 01/18/2025. Cultures sent. Currently on IV vancomycin and Zosyn. * Arterial studies done today showed severe arterial insufficiency in the left lower extremity with ankle-brachial index of 0.36 and moderate arterial insufficiency in right lower extremity with ankle-brachial index of 0.65. * had angiogram with angioplasty and stent of the left SFA and popliteal arteries. * On 01/22/2021, had incision of bone cortex of the left foot with skin grafting of the left foot in the 3rd and 2nd digits of the left foot. * Today's postop day 1. WBCs 11.7 today. * Blood culture showed no growth so far. Wound cultures preliminary growing Staph aureus as well as Citrobacter following day and Staph epidermidis. * Will consult ID to evaluate patient. * Continue current antibiotics. * #Hypokalemia: resolved. K is 3.4. #TYpe 2 diabetes mellitus * A1c is 9.6. On glimepiride which is on hold. Insulin sliding scale. Accu- Cheks ACHS. * Is unclear whether patient has really been taking her insulin at home. * She claims her insulin at home causes her blood sugars to go higher and claims compliance. * Will start Lantus 10 units daily today. #History of CAD: * Cardiac stents placed in October of this year. * Had two-vessel disease per Cardiac cath involving the LAD, diagonal vessel and circumflex artery and had stents placed then. * On aspirin, Plavix # Hypertension: On amlodipine, hydrochlorothiazide and lisinopril Class I obesity: BMI 33. Complicates acute care, expected recovery and prognosis #DVT prophylaxis: Lovenox Charges/Coding Visit Charges Inpatient E&M: 91430 Subs Hosp L2
[2025-01-23 13:51] VITALS: BP 134/50; PULSE 86; RESP 16; TEMP 37.4; O2SAT 96
[2025-01-23 16:38] LABS: Bedside Glucose 273 mg/dL (74-106)
[2025-01-23 20:00] VITALS: BP 165/57; PULSE 76; RESP 16; TEMP 37.5; O2SAT 94
[2025-01-23 22:00] VITALS: PULSE 76; RESP 16
[2025-01-23 23:01] LABS: Bedside Glucose 236 mg/dL (74-106)
[2025-01-24 02:30] VITALS: BP 164/59; RESP 16; TEMP 37.1; O2SAT 80
[2025-01-24 02:42] LABS: Vancomycin, Trough Level 20.5 ug/mL (5.0-15.0)
--- NOTE | 2025-01-24 03:15 | PCM.RX.CS ---
Consult Antibiotic Management Pharmacy has been consulted to manage selected antibiotic: Vancomycin Type of Intervention Type of Consult: Follow-up Labs Labs: Sodium 134 mmol/L (133-145) 01/23/25 06:03 Potassium 4.1 mmol/L (3.3-5.1) 01/23/25 06:03 Chloride 99 mmol/L (98-108) 01/23/25 06:03 Carbon Dioxide 22.6 mmol/L (21.0-32.0) 01/23/25 06:03 Anion Gap 12 (5-15) 01/23/25 06:03 BUN 28 mg/dL (4-19) H 01/23/25 06:03 Creatinine 1.03 mg/dL (0.70-1.20) 01/23/25 06:03 Est GFR (MDRD) Non-Af 59 (>60) L 01/23/25 06:03 BUN/Creatinine Ratio 27.5 RATIO (10-20) H 01/23/25 06:03 Glucose 173 mg/dL (70-99) H 01/23/25 06:03 Vancomycin Trough 20.5 ug/mL (5.0-15.0) H 01/24/25 01:20 Microbiology Microbiology: Microbiology 01/22/25 13:24 Bone - 3rd Toe Gram Stain - Final 01/22/25 13:24 Bone - 3rd Toe Wound Culture - Preliminary Staphylococcus species Gram positive organism Gram negative nikko 01/22/25 13:24 Bone - 2nd Toe Gram Stain - Final 01/22/25 13:24 Bone - 2nd Toe Wound Culture - Preliminary Staphylococcus aureus 01/18/25 17:19 Wound - Left Foot Gram Stain - Final 01/18/25 17:19 Wound - Left Foot Wound Culture - Final Citrobacter freundii Staphylococcus aureus Staphylococcus epidermidis 01/18/25 17:19 Wound - Left Foot Anaerobic Culture - Final Anaerobic cocci 01/18/25 12:05 Blood Culture (Wb) - Anticubital Left Blood Culture - Final No growth in 5 days. 01/18/25 12:16 Blood Culture (Wb) - Anticubital Left Blood Culture - Final No growth in 5 days. Goal Trough Goal Trough: 15-20 mcg/mL Pharmacy Plan for Drug Dosing Pharmacy Plan for Drug Dosing: Pharmacy Service will continue to monitor and adjust dosing as required. TROUGH 20.5 @ 11.5 HOURS. HOLD DOSE AND DRAW RANDOM LEVEL IN 8 HOURS. Follow-Up Labs Follow-Up Labs: Trough: Vancomycin Date/Time Labs Ordered Labs to be done on [date and time ordered]: 01/24 @ 7338
[2025-01-24] MEDS: Vancomycin Trough/Random Due 1 LAB MC (05:35)
[2025-01-24] MEDS: Piperacil/Tazobactam 3.375 GM in 0.9% Normal Saline (50mL MB+) 50 ML IV ×3 (05:36→20:54)
[2025-01-24 06:58] LABS: Bedside Glucose 148 mg/dL (74-106)
[2025-01-24 07:06] LABS: Absolute Lymphocyte Count 2.26 X10^3/uL (0.83-4.51); Basophil# 0.07 X10^3/uL; Basophil% 0.7 % (0-1); Eosinophil# 0.33 X10^3/uL; Eosinophils% 3.4 % (0-5); Hematocrit 31.3 % (37-47); Hemoglobin 10.8 g/dL (12.0-15.0); Lymphocyte # 2.26 X10^3/ul (0.83-4.51); Lymphocyte % 22.9 % (19-41); Mean Corp Hgb Conc 34.5 g/dL (32-36); Mean Corpuscular Hgb 29.3 pg (27.0-32.0); Mean Corpuscular Volume 85.1 fL (81-99); Mean Platelet Vol. 9.6 fl (6.2-12.0); Monocyte# 1.11 X10^3/uL; Monocyte% 11.3 % (0-10); NRBC Flagged by Analyzer 0 % (0-5); Neutrophil # 6.04 X10^3/uL (2.7-7.7); Neutrophil % 61.3 % (47-70); Platelet Count 296 K/mm3 (150-450); RBC Distribution Width CV 12.2 % (11.6-14.6); RBC Distribution Width SD 37.2 fl (35.1-43.9); Red Blood Count 3.68 M/mm3 (4.2-5.4); White Blood Count 9.9 K/mm3 (4.4-11.0)
[2025-01-24 07:22] LABS: Anion Gap 13 (5-15); BUN 38 mg/dL (4-19); BUN/Creat Ratio 33.8 RATIO (10-20); Calcium,Total 9.4 mg/dL (7.6-11.0); Carbon Dioxide 22.6 mmol/L (21.0-32.0); Chloride 102 mmol/L (98-108); Creatinine, Serum 1.11 mg/dL (0.70-1.20); EST Glomerular Filtration Rate 54 (>60); Estimated Creatinine Clearance 55.09 ml/min (50-250); Glucose 135 mg/dL (70-99); Potassium 3.4 mmol/L (3.3-5.1); Sodium Level 138 mmol/L (133-145)
[2025-01-24] MEDS: Aspirin 81 MG TAB.CHEW PO (08:32)
[2025-01-24] MEDS: Acetaminophen 325 MG Tablet 650 MG PO ×2 (08:34→21:13)
[2025-01-24 08:51] VITALS: BP 145/49; PULSE 79; RESP 16; TEMP 37.2; O2SAT 97
[2025-01-24 10:19] LABS: Vancomycin, Random Level 17.1 ug/mL (0.0-15.0)
[2025-01-24] MEDS: Insulin Glargine-YFGN 100 UNIT/ML Pen 10 UNIT SC (10:30)
[2025-01-24] MEDS: Nystatin Powder 15gm Bottle 1 APPLIC TOPICAL (10:35)
[2025-01-24] MEDS: Clopidogrel Bisulfate 75 MG Tablet PO (10:35)
[2025-01-24] MEDS: Enoxaparin 40 MG/0.4 ML Syringe SC (10:35)
[2025-01-24] MEDS: hydroCHLOROthiazide 25 MG Tablet PO (10:35)
[2025-01-24] MEDS: Lisinopril 20 MG Tablet PO (10:36)
[2025-01-24] MEDS: amLODIPine 5 MG Tablet PO (10:36)
[2025-01-24] MEDS: Vancomycin HCl 1,500 MG in 0.9% Normal Saline (500mL Bag) 500 ML 250 MG IV (11:35)
[2025-01-24 12:03] LABS: Bedside Glucose 347 mg/dL (74-106)
[2025-01-24 12:38] LABS: Bedside Glucose 339 mg/dL (74-106)
[2025-01-24] MEDS: Insulin Lispro 100 UNIT/ML INSULN.PEN SC ×2 (12:42→21:54)
--- NOTE | 2025-01-24 13:10 | PN_ITS ---
Subjective Subjective Patient seen and examined. She had no active complaints. Pain was fairly well- controlled. Review of systems otherwise negative. She has remained hemodynamically stable. She is awaiting ID evaluation tomorrow then discharge. Objective Data Objective Data Vital Signs: Vital Signs Temp Pulse Resp BP Pulse Ox O2 Del Method O2 Flow Rate 99 F 79 16 145/49 H 97 Room Air 2 01/24/25 08:51 01/24/25 08:51 01/24/25 08:51 01/24/25 08:51 01/24/25 08:51 01/24/25 08:51 01/22/25 15:00 Oxygen Flow Rate (L/min) 2 Oxygen Delivery Method Room Air Weight: 206 lb Body Mass Index (BMI) 33.2 Intake & Output: Intake and Output for Last 24 Hours 01/22/25 01/23/25 01/24/25 23:59 23:59 23:59 Intake Total 662.75 / 662.75 1500 / 1500 100 / 100 Output Total 5 / 5 Balance 657.75 / 657.75 1500 / 1500 100 / 100 Lab / Micro Data 01/24/25 05:59 01/24/25 05:59 Labs: Laboratory Results - last 24 hr 01/23/25 16:13: POC Glucose 273 H 01/23/25 22:40: POC Glucose 236 H 01/24/25 01:20: Vancomycin Trough 20.5 H 01/24/25 05:59: WBC 9.9, RBC 3.68 L, Hgb 10.8 L, Hct 31.3 L, MCV 85.1, MCH 29.3, MCHC 34.5, RDW Std Deviation 37.2, RDW Coeff of Rosalie 12.2, Plt Count 296, MPV 9.6, Immature Gran % (Auto) 0.400, Neut % (Auto) 61.3, Lymph % (Auto) 22.9, [place] % (Auto) 11.3 H, Eos % (Auto) 3.4, Baso % (Auto) 0.7, Absolute Neuts (auto) 6.0, Absolute Lymphs (auto) 2.26, Nucleated RBC % 0, Sodium 138, Potassium 3.4, Chloride 102, Carbon Dioxide 22.6, Anion Gap 13, BUN 38 H, Creatinine 1.11, Estim Creat Clear Calc 55.09, Est GFR (MDRD) Non-Af 54 L, BUN/Creatinine Ratio 33.8 H, Glucose 135 H, Calcium 9.4 01/24/25 06:34: POC Glucose 148 H 01/24/25 09:15: Random Vancomycin 17.1 H 01/24/25 10:31: POC Glucose 347 H 01/24/25 12:20: POC Glucose 339 H Micro: Microbiology 01/22/25 13:24 Bone - 3rd Toe Gram Stain - Final 01/22/25 13:24 Bone - 3rd Toe Wound Culture - Preliminary Staphylococcus aureus Coag Negative 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 01/18/25 12:16 Blood Culture (Wb) - Anticubital Left Blood Culture - Final No growth in 5 days. Physical Exam Const alert, oriented x3 and no apparent distress Constitutional Narrative: class II obesity General Appearance: cooperative and comfortable HEENT normocephalic, head/scalp atraumatic and hearing grossly normal bilaterally Eyes PERRL, EOMs intact bilaterally and conjunctivae normal Neck full ROM, supple and no JVD Lymph Lymphatic: no lymphedema noted Chest inspection of chest normal Resp normal respiratory effort, normal air movement, no use of accessory muscles and clear to auscultation bilaterally Cardio regular rate, regular rhythm, S1 normal heart sound, S2 normal heart sound and no murmurs GI normal to inspection, nondistended, normoactive bowel sounds, soft to palpation, non-tender and non-distended Back/Spine normal ROM Extremity Extremity Narrative: right foot wrapped in bandage. General Extremity: no tenderness to palpation of joints or extremities Skin Skin Narrative: as under extremities Neuro no sensory deficits noted Motor Exam: general weakness Psych mental status grossly normal, thought process normal and cooperative Appearance: appropriate Assessment & Plan Assessment/Plan (1) Diabetic infection of left foot: (2) Acute painful diabetic polyneuropathy: PLAN: Plan #Left diabetic foot infection * Was admitted with a complaint of worsening left foot wound with redness and swelling. CRP was elevated. * X-ray of the left foot shows soft tissue swelling with concern for osteomyelitis. He had bedside debridement of the foot by podiatry on 01/18/2025. Cultures sent. Currently on IV vancomycin and Zosyn. * Arterial studies done today showed severe arterial insufficiency in the left lower extremity with ankle-brachial index of 0.36 and moderate arterial insufficiency in right lower extremity with ankle-brachial index of 0.65. * had angiogram with angioplasty and stent of the left SFA and popliteal arteries. * On 01/22/2021, had incision of bone cortex of the left foot with skin grafting of the left foot in the 3rd and 2nd digits of the left foot. * Today's postop day 2. W * Blood culture showed no growth so far. Wound cultures preliminary growing Staph aureus as well as Citrobacter fruendi and Staph epidermidis. * ID consulted to give rec's on oral antibiotics. Will see tomorrow * #Hypokalemia: resolved. #TYpe 2 diabetes mellitus * A1c is 9.6. On glimepiride which is on hold. Insulin sliding scale. Accu- Cheks ACHS. * Is unclear whether patient has really been taking her insulin at home. * She claims her insulin at home causes her blood sugars to go higher and claims compliance. * Started on Lantus 10 units daily. Will resume glimepiride also. Patient counseled on compliance with Lantus. She will need a prescription filled for Lantus before she goes on. * #History of CAD: * Cardiac stents placed in October of this year. * Had two-vessel disease per Cardiac cath involving the LAD, diagonal vessel and circumflex artery and had stents placed then. * On aspirin, Plavix # Hypertension: On amlodipine, hydrochlorothiazide and lisinopril Class I obesity: BMI 33. Complicates acute care, expected recovery and prognosis #DVT prophylaxis: Lovenox Disposition: For DC home tomorrow after review by ID. Charges/Coding Visit Charges Inpatient E&M: 16685 Subs Hosp L2
[2025-01-24 14:39] VITALS: BP 140/48; PULSE 72; RESP 16; TEMP 36.9; O2SAT 95
--- NOTE | 2025-01-24 15:19 | PHA.PHARE_ITS ---
Consult Antibiotic Management Pharmacy has been consulted to manage selected antibiotic: Vancomycin Type of Intervention Type of Consult: Follow-up Suspected Infection Suspected Infection: Skin/Soft tissue Labs Labs: Sodium 138 mmol/L (133-145) 01/24/25 05:59 Potassium 3.4 mmol/L (3.3-5.1) 01/24/25 05:59 Chloride 102 mmol/L (98-108) 01/24/25 05:59 Carbon Dioxide 22.6 mmol/L (21.0-32.0) 01/24/25 05:59 Anion Gap 13 (5-15) 01/24/25 05:59 BUN 38 mg/dL (4-19) H 01/24/25 05:59 Creatinine 1.11 mg/dL (0.70-1.20) 01/24/25 05:59 Est GFR (MDRD) Non-Af 54 (>60) L 01/24/25 05:59 BUN/Creatinine Ratio 33.8 RATIO (10-20) H 01/24/25 05:59 Glucose 135 mg/dL (70-99) H 01/24/25 05:59 Vancomycin Trough 20.5 ug/mL (5.0-15.0) H 01/24/25 01:20 Random Vancomycin 17.1 ug/mL (0.0-15.0) H 01/24/25 09:15 Microbiology Microbiology: Microbiology 01/22/25 13:24 Bone - 3rd Toe Gram Stain - Final 01/22/25 13:24 Bone - 3rd Toe Wound Culture - Preliminary Staphylococcus aureus Coag Negative Staph GNR lactose central office inspector 01/22/25 13:24 Bone - 2nd Toe Gram Stain - Final 01/22/25 13:24 Bone - 2nd Toe Wound Culture - Final Staphylococcus aureus 01/22/25 13:24 Bone - 2nd Toe Anaerobic Culture - Preliminary 01/18/25 17:19 Wound - Left Foot Gram Stain - Final 01/18/25 17:19 Wound - Left Foot Wound Culture - Final Citrobacter freundii Staphylococcus aureus Staphylococcus epidermidis 01/18/25 17:19 Wound - Left Foot Anaerobic Culture - Final Anaerobic cocci 01/18/25 12:05 Blood Culture (Wb) - Anticubital Left Blood Culture - Final No growth in 5 days. 01/18/25 12:16 Blood Culture (Wb) - Anticubital Left Blood Culture - Final No growth in 5 days. Goal Trough Goal Trough: 15-20 mcg/mL Pharmacy Plan for Drug Dosing Pharmacy Plan for Drug Dosing: VANCOMYCIN LEVEL RECEIVED Current Vancomycin Dose: current dose on hold due to elevated trough (was 1000mg q12h) Number of Doses Received: Vancomycin Level: random level resulted at 17.1 Hours Since Last Dose: 19.5 hours since last 1000mg dose Renal Function: SrCr 1.11 Renal Function Trend: SrCr increasing Lab/Micro: Vancomycin Plan/Comments: recommend restarting vancomycin at a dose of 1500mg q24h. trying to avoid q12h dosing due to increasing SrCr, this will hopefully allow more time for medication to clear. trough prior to the 3rd dose Pending Level: 01/26/25 at 1100 Pharmacy Service will continue to monitor and adjust dosing as required. Follow-Up Labs Follow-Up Labs: Trough: Vancomycin (01/26/25 at 1100)
[2025-01-24 16:40] LABS: Bedside Glucose 219 mg/dL (74-106)
[2025-01-24 21:00] VITALS: BP 158/51; PULSE 74; RESP 16; TEMP 37.2
[2025-01-24 22:00] VITALS: PULSE 74; RESP 16
[2025-01-24 22:08] LABS: Bedside Glucose 282 mg/dL (74-106)
[2025-01-25 03:00] VITALS: BP 152/70; PULSE 50; RESP 16; TEMP 36.7; O2SAT 97
[2025-01-25] MEDS: oxyCODONE 5 MG Tablet PO (03:23)
[2025-01-25] MEDS: Piperacil/Tazobactam 3.375 GM in 0.9% Normal Saline (50mL MB+) 50 ML IV (06:12)
[2025-01-25 06:59] LABS: Absolute Lymphocyte Count 2.06 X10^3/uL (0.83-4.51); Absolute Neutrophil Count 4.3 X10^3/uL (2.0-7.7); Basophil# 0.04 X10^3/uL; Basophil% 0.5 % (0-1); Eosinophil# 0.46 X10^3/uL; Hematocrit 29.5 % (37-47); Hemoglobin 10.3 g/dL (12.0-15.0); Lymphocyte # 2.06 X10^3/ul (0.83-4.51); Lymphocyte % 26.8 % (19-41); Mean Corp Hgb Conc 34.9 g/dL (32-36); Mean Corpuscular Hgb 29.3 pg (27.0-32.0); Mean Platelet Vol. 9.5 fl (6.2-12.0); Monocyte# 0.82 X10^3/uL; Monocyte% 10.7 % (0-10); NRBC Flagged by Analyzer 0 % (0-5); Neutrophil # 4.28 X10^3/uL (2.7-7.7); Neutrophil % 55.7 % (47-70); Platelet Count 294 K/mm3 (150-450); RBC Distribution Width CV 12.2 % (11.6-14.6); Red Blood Count 3.51 M/mm3 (4.2-5.4); White Blood Count 7.7 K/mm3 (4.4-11.0)
[2025-01-25 07:24] LABS: Bedside Glucose 140 mg/dL (74-106)
[2025-01-25 07:41] LABS: Anion Gap 12 (5-15); BUN 38 mg/dL (4-19); BUN/Creat Ratio 36.8 RATIO (10-20); Calcium,Total 9.7 mg/dL (7.6-11.0); Carbon Dioxide 24.2 mmol/L (21.0-32.0); Chloride 102 mmol/L (98-108); Creatinine, Serum 1.03 mg/dL (0.70-1.20); EST Glomerular Filtration Rate 59 (>60); Estimated Creatinine Clearance 59.37 ml/min (50-250); Glucose 135 mg/dL (70-99); Potassium 3.8 mmol/L (3.3-5.1); Sodium Level 139 mmol/L (133-145)
[2025-01-25 09:00] VITALS: BP 156/72; PULSE 66; RESP 16; TEMP 36.8; O2SAT 98
--- NOTE | 2025-01-25 09:24 | WOUNDNOTE ---
wound photo: left foot
--- NOTE | 2025-01-25 09:25 | WOUNDNOTE ---
wound photo: left foot
[2025-01-25] MEDS: Aspirin 81 MG TAB.CHEW PO (09:48)
[2025-01-25] MEDS: Insulin Glargine-YFGN 100 UNIT/ML Pen 10 UNIT SC (09:48)
[2025-01-25] MEDS: Enoxaparin 40 MG/0.4 ML Syringe SC (09:48)
[2025-01-25] MEDS: hydroCHLOROthiazide 25 MG Tablet PO (09:48)
[2025-01-25] MEDS: Nystatin Powder 15gm Bottle 1 APPLIC TOPICAL (09:49)
[2025-01-25] MEDS: amLODIPine 5 MG Tablet PO (09:49)
[2025-01-25] MEDS: Lisinopril 20 MG Tablet PO (09:49)
[2025-01-25] MEDS: Clopidogrel Bisulfate 75 MG Tablet PO (09:49)
[2025-01-25] MEDS: Insulin Lispro 100 UNIT/ML INSULN.PEN SC (11:11)
[2025-01-25] MEDS: Vancomycin HCl 1,500 MG in 0.9% Normal Saline (500mL Bag) 500 ML 250 MG IV (11:14)
[2025-01-25 11:29] LABS: Bedside Glucose 196 mg/dL (74-106)
--- NOTE | 2025-01-25 12:53 | CASEMGMT ---
Addendum entered by Venita Siu 01/25/25 14:37: Requested needles for insulin pen be prescribed. Pt has given insulin to self in past. Original Note: RN CM into pt room, pt dil and 2 grandchildren present. Discussed checking blood sugar and provided pt with a rx for BGM and testing supplies. Pt states she already has this at home with supplies. Pt dil will perform dressing changes. Pt denies need for a HH nurse. Discussed [facility] and that this would be requested after the dc order in. Pt would have 5 people as is not in room to go home with. She states they will hire a commercial truck driver. Per ID, pt to dc on po atb. Pt feels comfortable with using w/c and walker. Pt denies any need for any therapy post hospitalization. Pt ready for dc home.
--- NOTE | 2025-01-25 14:02 | PCM.DC ---
Discharge Instructions Diet Discharge Diet: Low fat / Low cholesterol, 1800 Calorie Control Diet and 2000 mg Sodium Diet DC O2, CPAP, BIPAP needs Home O2 Discharge instructions: No Dressing / Incision Discharge Activity: Return to Normal Activity Weight Bearing Status: Weight bearing as tolerated Dressing / Incision Call your doctor if you observe: Fever of 101 or Higher, Coldness, Increased Pain, Numbness or Tingling, Change in Color, Inability to urinate, Inability to have a bowel movement, Shortness of breath, Dizziness, Fainting spells, Swelling in the ankles, Chest pain, Prolonged hiccupping, Increased palpitations (irregular heartbeat) and Calf discomfort Follow Up Care When: IN 2 WEEKS Test Results: Test results from this visit will be discussed in further detail at your follow-up appointment, if applicable. Discharge Plan Admission Admit Date/Time: 01/18/25 13:38 Primary Reason for Your Visit: Diabetic foot infection Attending Provider: Balaji Myers Primary Care Provider: Teresa Millan NP Consulting Providers: Sincere Barron; Cristobal Lee; Errol Arias; Maggie Mabry; Adonis Nova Discharge Orders/Prescriptions Prescriptions: New insulin glargine-yfgn 100 unit/mL (3 mL) Insulin Pen 10 unit subcut DAILY 30 Days Qty: 15 2RF insulin lispro [Humalog KwikPen Insulin] 100 unit/mL Insulin Pen See Protocol subcut ACHS Qty: 15 2RF Protocol: 4. Sliding Scale Insulin High-Med Dosing Condition: 150-199 mg/dl = 2 units Condition: 200-259 mg/dl = 4 units Condition: 260-324 mg/dl = 6 units Condition: 325-374 mg/dl = 8 units Condition: 375-409 mg/dl = 10 units Condition: 410-449 mg/dl = 11 units Condition: Greater than 449 call physician Protocol Text: Suggested for: - Patients on Total Daily Insulin Dose of 56-80 units - Patient who are known to be insulin resistant or septic HIGH MEDIUM DOSING ALGORITHM amoxicillin-pot clavulanate 875-125 mg tablet 1 tab PO BID 7 Days Qty: 14 0RF Continued lisinopril 20 mg tablet 20 mg PO DAILY Patient Comments: TAKE 1 TABLET DAILY glimepiride 4 mg tablet 4 mg PO DAILY Qty: 1 0RF Patient Comments: TAKE 1 TABLET TWICE DAILY Rx Instructions: take 1/2 tablet qhs as you have been taking clopidogrel 75 mg Tablet 75 mg PO DAILY Qty: 90 3RF amlodipine 5 mg Tablet 5 mg PO DAILY Qty: 90 3RF aspirin 81 mg Tablet,Chewable 81 mg PO BREAKFAST Qty: 90 3RF hydrochlorothiazide 25 mg Tablet 25 mg PO DAILY Qty: 90 3RF Discontinued doxycycline hyclate 100 mg tablet 100 mg PO BID Referrals / Follow Up: Errol Arias MD [Med Staff - Active Staff] - Within 1 Month Cristobal Lee DPM [Med Staff - Active Staff] - Within 1 Week Adonis Nova MD [Med Staff - Active Staff] - See Referral Note (As needed) Teresa Millan NP, SENIOR ASIC ENGINEER-C [Primary Care Provider] - Disposition Disposition (needs filled in before D/C Order can be placed): Home, Self Care
--- NOTE | 2025-01-25 14:10 | DS.PCM_ITS ---
Providers Date of Admission: 01/18/25 Date of Discharge: 01/25/25 Primary Care Physician: Teresa Millan, NUPUR Consultations 01/18/25 14:39 Consult: Podiatry Routine Consulting Provider: Cristobal Lee Reason for Consult: left foot infection EMERGENT Consult: No MD Notified: Yes Date Notified: 01/18/25 Time Notified: 14:42 Method of Notification: Text 01/19/25 06:04 Consult: Onc/Wound/map editor Routine Comment: Reason for Consult:: left foot 01/19/25 12:20 Consult: Vascular Surgery Routine Consulting Provider: Errol Arias Reason for Consult: PAD EMERGENT Consult: No MD Notified: Yes Date Notified: 01/19/25 Time Notified: 12:20 Method of Notification: Text 01/23/25 12:30 Consult: Infectious Disease Routine Consulting Provider: Adonis Nova Reason for Consult: diabetic foot cellulitis EMERGENT Consult: No MD Notified: Yes Date Notified: 01/23/25 Time Notified: 12:30 Method of Notification: Text Reason For Visit: LEFT FOOT INFECTION Diagnosis Discharge Diagnosis (1) Diabetic infection of left foot: Status: Acute Code(s): E11.628 - Type 2 diabetes mellitus with other skin complications; L08.9 - Local infection of the skin and subcutaneous tissue, unspecified (2) Acute painful diabetic polyneuropathy: Status: Acute Code(s): E11.42 - Type 2 diabetes mellitus with diabetic polyneuropathy Plan 69-year-old female admitted for left diabetic foot ulcer. #Left diabetic foot infection * Was admitted with a complaint of worsening left foot wound with redness and swelling. CRP was elevated. * X-ray of the left foot shows soft tissue swelling with concern for osteomyelitis. He had bedside debridement of the foot by podiatry on 01/18/2025. Cultures sent. Currently on IV vancomycin and Zosyn. * Arterial studies done today showed severe arterial insufficiency in the left lower extremity with ankle-brachial index of 0.36 and moderate arterial insufficiency in right lower extremity with ankle-brachial index of 0.65. * had angiogram with angioplasty and stent of the left SFA and popliteal arteries. * On 01/22/2021, had incision of bone cortex of the left foot with skin grafting of the left foot in the 3rd and 2nd digits of the left foot. * Blood culture showed no growth so far. Wound cultures final grew Staph aureus 1+, Staph epidermidis 1+ and rare Citrobacter freundii 01/25: Patient was alerted by ID and recommended 1 week course of Augmentin 875 mg twice daily that is prescribed #Hypokalemia: resolved. #TYpe 2 diabetes mellitus * A1c is 9.6. On glimepiride which is on hold. Insulin sliding scale. Accu- Cheks ACHS. * She claims her insulin at home causes her blood sugars to go higher and claims compliance but found that she was not taking it. * Started on Lantus 10 units daily. Prescription given for Lantus. Glimepiride resumed #History of CAD: * Cardiac stents placed in October of this year. * Had two-vessel disease per Cardiac cath involving the LAD, diagonal vessel and circumflex artery and had stents placed then. * On aspirin, Plavix # Hypertension: On amlodipine, hydrochlorothiazide and lisinopril Class I obesity: BMI 33. Complicates acute care, expected recovery and prognosis #DVT prophylaxis: Lovenox Discharge medication reconciliation done. Discharge follow-up instructions completed. Discharge process discussed with the patient and all questions were answered to patient's satisfaction. Follow with PCP in 1 to 2 weeks Total time spent, exact 35 minutes on discharge meds reconciliation, examination, coordination of care with nurses and ancillary staff, review of imaging and blood test and discussion with the patient on follow-up instructions. Medications at Discharge Home Medications lisinopril 20 mg tablet 20 mg PO DAILY 11/03/24 amlodipine 5 mg tablet 5 mg PO DAILY #90 tabs 11/04/24 aspirin 81 mg chewable tablet 81 mg PO BREAKFAST #90 tabs 11/04/24 clopidogrel 75 mg tablet 75 mg PO DAILY #90 tabs 11/04/24 glimepiride 4 mg tablet 4 mg PO DAILY #1 TAB 11/04/24 hydrochlorothiazide 25 mg tablet 25 mg PO DAILY #90 tabs 11/04/24 amoxicillin 875 mg-potassium clavulanate 125 mg tablet 1 tab PO BID 1 week #14 tabs 01/25/25 insulin glargine-yfgn 100 unit/mL (3 mL) subcutaneous pen 10 unit (0.1 mL) subcut DAILY 1 month #15 mL 06/16/25 insulin lispro 100 unit/mL subcutaneous pen (Humalog KwikPen (U-100) Insulin) See Protocol subcut ACHS #15 mL 01/25/25 Physical Exam Narrative Seen and examined. No acute issues. Glucose between 140-196. Physical exam General: Alert, Oriented x3, Cooperative. BMI 33.2 kg/m? HEENT: Atraumatic, PERRLA, EOMI, Normocephalic. Oral: No Gingival or Mucosal Lesions/ Ulcerations Neck: Supple, No JVD, Negative Carotid Bruits Chest wall/Lungs: Air entry diminished in bilateral lung bases. No crepitation/rhonchi Cardiovascular: Regular rate and rhythm, Normal S1,S2, No M/G/R Abdomen: Bowel Sounds Present, Soft, Non Tender, Non-Distended : No dysuria. No renal angle tenderness. No suprapubic tenderness. Extremities: No edema, Capillary Refill Less than 3 Seconds Skin: Left foot wrapped with dressing and Saeed wrap bandage Musculoskeletal: No Tenderness to Palpation of Joints or Extremities Neurological: Cranial nerves II-XII grossly intact, DTR 2+/4. No acute focal neurological deficit. Psych/Mental Status: Normal Affect, Appropriate. Weight / BMI Weight Weight: 206 lb Body Mass Index (BMI) 33.2 ABG / Lab / Microbiology Data 01/25/25 06:24 01/25/25 06:24 Laboratory: Laboratory Results - last 24 hr 01/24/25 16:21: POC Glucose 219 H 01/24/25 21:48: POC Glucose 282 H 01/25/25 06:24: WBC 7.7, RBC 3.51 L, Hgb 10.3 L, Hct 29.5 L, MCV 84.0, MCH 29.3, MCHC 34.9, RDW Std Deviation 37.0, RDW Coeff of Rosalie 12.2, Plt Count 294, MPV 9.5, Immature Gran % (Auto) 0.300, Neut % (Auto) 55.7, Lymph % (Auto) 26.8, Barry % (Auto) 10.7 H, Eos % (Auto) 6.0 H, Baso % (Auto) 0.5, Absolute Neuts (auto) 4.3, Absolute Lymphs (auto) 2.06, Nucleated RBC % 0, Sodium 139, Potassium 3.8, Chloride 102, Carbon Dioxide 24.2, Anion Gap 12, BUN 38 H, Creatinine 1.03, Estim Creat Clear Calc 59.37, Est GFR (MDRD) Non-Af 59 L, BUN/Creatinine Ratio 36.8 H, Glucose 135 H, Calcium 9.7 01/25/25 06:47: POC Glucose 140 H 01/25/25 11:10: POC Glucose 196 H Microbiology: Microbiology 01/22/25 13:24 Bone - 3rd Toe Gram Stain - Final 01/22/25 13:24 Bone - 3rd Toe Wound Culture - Final Staphylococcus aureus Staphylococcus epidermidis Citrobacter freundii 01/22/25 13:24 Bone - 2nd Toe Gram Stain - Final 01/22/25 13:24 Bone - 2nd Toe Wound Culture - Final Staphylococcus aureus 01/22/25 13:24 Bone - 2nd Toe Anaerobic Culture - Preliminary 01/18/25 17:19 Wound - Left Foot Gram Stain - Final 01/18/25 17:19 Wound - Left Foot Wound Culture - Final Citrobacter freundii Staphylococcus aureus Staphylococcus epidermidis 01/18/25 17:19 Wound - Left Foot Anaerobic Culture - Final Anaerobic cocci 01/18/25 12:05 Blood Culture (Wb) - Anticubital Left Blood Culture - Final No growth in 5 days. 01/18/25 12:16 Blood Culture (Wb) - Anticubital Left Blood Culture - Final No growth in 5 days. D/C Instructions Discharge Diet: Low fat / Low cholesterol, 1800 Calorie Control Diet and 2000 mg Sodium Diet Weight Bearing Status: Weight bearing as tolerated Call your doctor if you observe: Fever of 101 or Higher, Coldness, Increased Pain, Numbness or Tingling, Change in Color, Inability to urinate, Inability to have a bowel movement, Shortness of breath, Dizziness, Fainting spells, Swelling in the ankles, Chest pain, Prolonged hiccupping, Increased palpitations (irregular heartbeat) and Calf discomfort DC O2, CPAP, BIPAP Needs Home O2 Discharge instructions: No When: IN 2 WEEKS Meaningful Use Info Meaningful Use Meaningful Use Diagnoses (Choose all that apply): None applicable Ischemic Stroke Statin Dosing Therapy Reference: STATIN DOSE THERAPY REFERENCE: * Patients > 75 years receive moderate or high dose statin therapy. * Patients 75 years or YOUNGER should receive HIGH intensity statin dose unless contraindicated. You will be required to document reason for non-treatment if statin daily dose does not meet guidelines. HIGH DOSE STATIN THERAPY DAILY Atorvastatin > than or = to 40 mg Rosuvastatin > than or = to 20 mg Amlodipine + Atorvastatin > than or = to 2.5/40 mg Ezetimibe + Simvastatin 10/80 mg Simvastatin 80mg Discharge Plan Admission Admit Date/Time: 01/18/25 13:38 Primary Reason for Your Visit: Diabetic foot infection Attending Provider: Balaji Myers Primary Care Provider: Teresa Millan NP Consulting Providers: Sincere Barron; Cristobal Lee; Errol Arias; Maggie Mabry; Adonis Nova Discharge Orders/Prescriptions Prescriptions: New insulin glargine-yfgn 100 unit/mL (3 mL) Insulin Pen 10 unit subcut DAILY 30 Days Qty: 15 2RF insulin lispro [Humalog KwikPen Insulin] 100 unit/mL Insulin Pen See Protocol subcut ACHS Qty: 15 2RF Protocol: 4. Sliding Scale Insulin High-Med Dosing Condition: 150-199 mg/dl = 2 units Condition: 200-259 mg/dl = 4 units Condition: 260-324 mg/dl = 6 units Condition: 325-374 mg/dl = 8 units Condition: 375-409 mg/dl = 10 units Condition: 410-449 mg/dl = 11 units Condition: Greater than 449 call physician Protocol Text: Suggested for: - Patients on Total Daily Insulin Dose of 56-80 units - Patient who are known to be insulin resistant or septic HIGH MEDIUM DOSING ALGORITHM amoxicillin-pot clavulanate 875-125 mg tablet 1 tab PO BID 7 Days Qty: 14 0RF Continued lisinopril 20 mg tablet 20 mg PO DAILY Patient Comments: TAKE 1 TABLET DAILY glimepiride 4 mg tablet 4 mg PO DAILY Qty: 1 0RF Patient Comments: TAKE 1 TABLET TWICE DAILY Rx Instructions: take 1/2 tablet qhs as you have been taking clopidogrel 75 mg Tablet 75 mg PO DAILY Qty: 90 3RF amlodipine 5 mg Tablet 5 mg PO DAILY Qty: 90 3RF aspirin 81 mg Tablet,Chewable 81 mg PO BREAKFAST Qty: 90 3RF hydrochlorothiazide 25 mg Tablet 25 mg PO DAILY Qty: 90 3RF Discontinued doxycycline hyclate 100 mg tablet 100 mg PO BID Referrals / Follow Up: Errol Arias MD [Med Staff - Active Staff] - Within 1 Month Cristobal Lee DPM [Med Staff - Active Staff] - Within 1 Week Adonis Nova MD [Med Staff - Active Staff] - See Referral Note (As needed) Teresa Millan NP, WATER TREATMENT TECHNICIAN-C [Primary Care Provider] - Disposition Disposition (needs filled in before D/C Order can be placed): Home, Self Care Charges/Coding Visit Charges Inpatient E&M: 32616 Disch Hosp >30min
[2025-01-25 14:39] VITALS: BP 142/74; PULSE 76; RESP 18; TEMP 36.7; O2SAT 99
--- NOTE | 2025-01-25 14:48 | CASEMGMT ---
TC to [facility] Van to confirm if availability to transport pt and family home, they do not for today.
--- NOTE | 2025-01-25 15:34 | PCM.CONS.GEN ---
Assessment & Plan Assessment/Plan (1) Gangrene of left foot: PLAN: Now s/p 01/22/25 amputation of L 2nd and 3rd toes by Dr. Lee. Surg cx with staph aureus, CoNS, and GNR. Wound cx with MSSA, MSSE, citrobacter, and anaerobes. Ok for home with po augmentin 875mg bid for one week. Will follow, thank you, d/w primary team (2) Diabetic infection of left foot: HPI Consult Data Date of Consult: 01/25/25 HPI Narrative Reason for Consultation: osteo HPI Narrative: CLAYTON ALVAREZ, is a 69 F with DM neuropathy, had L foot ulcer for about a year, acutely worsened over 1-2 weeks with increased redness, swelling, and pain. No fever or chills. Admitted here 01/18/25. Taken to OR 01/22/[address] Lee. Feeling better, no fever, no n/v/d. Full ROS performed and neg except as noted above. [facility] Medical History Diabetes Left great toe amputee no medical history Home Medications ?Medication ?Instructions ?Recorded ?Last Taken ?Type lisinopril 20 mg tablet 20 mg PO DAILY 11/03/24 01/18/25 History amlodipine 5 mg tablet 5 mg PO DAILY #90 tabs 11/04/24 01/18/25 Rx aspirin 81 mg chewable tablet 81 mg PO BREAKFAST #90 tabs 11/04/24 01/18/25 Rx clopidogrel 75 mg tablet 75 mg PO DAILY #90 tabs 11/04/24 01/18/25 Rx glimepiride 4 mg tablet 4 mg PO DAILY #1 TAB 11/04/24 01/17/25 Rx hydrochlorothiazide 25 mg tablet 25 mg PO DAILY #90 tabs 11/04/24 01/18/25 Rx amoxicillin 875 mg-potassium 1 tab PO BID 1 week #14 tabs 01/25/25 Unknown Rx clavulanate 125 mg tablet insulin glargine-yfgn 100 unit/mL 10 unit (0.1 mL) subcut DAILY 1 01/25/25 Unknown Rx (3 mL) subcutaneous pen month #15 mL insulin lispro 100 unit/mL See Protocol subcut ACHS #15 mL 01/25/25 Unknown Rx subcutaneous pen (Humalog KwikPen (U-100) Insulin) needle (disp) 32 gauge 32 gauge x #100 ea 01/25/25 Unknown Rx 12/25 Allergy/AdvReac Type Severity Reaction Status Date / Time cephalexin (From Keflex) Allergy Rash Verified 01/18/25 11:12 morphine Allergy Unknown Verified 01/18/25 11:12 Surgical History Stented coronary artery (11/03/24) Social History Smoking Status: Never smoker Physical Exam Const alert, oriented x3 and no apparent distress General Appearance: cooperative HEENT normocephalic and head/scalp atraumatic Eyes PERRL and EOMs intact bilaterally Neck supple and No nodes Resp normal air movement and clear to auscultation bilaterally Cardio regular rate and regular rhythm GI soft to palpation, non-tender and non-distended Extremity General Extremity: Negative for edema Skin Skin Narrative: reviewed wound photos Neuro CN's II-XII intact bilaterally Lab / Micro Data Attestation: I reviewed the patient's lab results. 01/25/25 06:24 01/25/25 06:24 Labs: Laboratory Results - last 24 hr 01/24/25 16:21: POC Glucose 219 H 01/24/25 21:48: POC Glucose 282 H 01/25/25 06:24: WBC 7.7, RBC 3.51 L, Hgb 10.3 L, Hct 29.5 L, MCV 84.0, MCH 29.3, MCHC 34.9, RDW Std Deviation 37.0, RDW Coeff of Rosalie 12.2, Plt Count 294, MPV 9.5, Immature Gran % (Auto) 0.300, Neut % (Auto) 55.7, Lymph % (Auto) 26.8, [place] % (Auto) 10.7 H, Eos % (Auto) 6.0 H, Baso % (Auto) 0.5, Absolute Neuts (auto) 4.3, Absolute Lymphs (auto) 2.06, Nucleated RBC % 0, Sodium 139, Potassium 3.8, Chloride 102, Carbon Dioxide 24.2, Anion Gap 12, BUN 38 H, Creatinine 1.03, Estim Creat Clear Calc 59.37, Est GFR (MDRD) Non-Af 59 L, BUN/Creatinine Ratio 36.8 H, Glucose 135 H, Calcium 9.7 01/25/25 06:47: POC Glucose 140 H 01/25/25 11:10: POC Glucose 196 H Micro: Microbiology 01/22/25 13:24 Bone - 3rd Toe Gram Stain - Final 01/22/25 13:24 Bone - 3rd Toe Wound Culture - Final Staphylococcus aureus Staphylococcus epidermidis Citrobacter freundii
== END 2025-01-25 15:28 | disposition home or self-care (01) | DRG 623 ==
LOC: ED 12:35 → MS3 14:01 → MS2 01-20 19:48 → MS3 01-21 01:06
PROVIDERS: Internal Medicine; Podiatrist Foot & Ankle Surgery; Student in an Organized Health Care Education/Training Program; Admitting Provider Hospitalist; Emergency Provider Surgery; PCP Nurse Practitioner Family; Visit Provider Internal Medicine
PROC: 0JXR0ZB Transfer Left Foot Subcutaneous Tissue and Fascia with Skin and Subcutaneous Tissue, Open Approach (ICD-10-PCS; principal; 2025-01-22 11:45)
DX: E11.69 Type 2 diabetes mellitus with other specified complication (principal); M86.9 Osteomyelitis, unspecified; I70.262 Atherosclerosis of native arteries of extremities with gangrene, left leg; E11.52 Type 2 diabetes mellitus with diabetic peripheral angiopathy with gangrene; D64.9 Anemia, unspecified; L97.524 Non-pressure chronic ulcer of other part of left foot with necrosis of bone; E11.42 Type 2 diabetes mellitus with diabetic polyneuropathy; I10 Essential (primary) hypertension; E66.811 Obesity, class 1; E11.621 Type 2 diabetes mellitus with foot ulcer; E11.65 Type 2 diabetes mellitus with hyperglycemia; I25.10 Atherosclerotic heart disease of native coronary artery without angina pectoris; E87.6 Hypokalemia; Z79.4 Long term (current) use of insulin; Z68.33 Body mass index [BMI] 33.0-33.9, adult; Z95.5 Presence of coronary angioplasty implant and graft; Z79.2 Long term (current) use of antibiotics; Z79.02 Long term (current) use of antithrombotics/antiplatelets; Z79.82 Long term (current) use of aspirin; Z79.84 Long term (current) use of oral hypoglycemic drugs; Z79.899 Other long term (current) drug therapy
CPT/HCPCS: 36200; 36245; 36415; 37226; 37252; 37253; 73620; 73630; 75625; 75635; 75710; 76000; 76937; 80048; 80202; 82962; 83036; 83605; 85025; 85027; 85347; 85652; 86140; 87040; 87070; 87075; 87077; 87102; 87176; 87186; 87205; 87206; 88305; 88311; 93005; 93923; 93970; 97162; 97166; 97530; 97535; 97802; 99152; 99153; 99285; C1725; C1753; C1760; C1769; C1874; C1876; C1887; C1894; C2623; Q9967; A4216; J2405

== ENCOUNTER 2025-02-26 09:34 | Observation (INO) | payer OTHER, SELFPAY ==
--- NOTE | 2025-02-24 16:13 | RAD_ITS ---
EXAM: XR Chest, 2 Views CLINICAL INDICATION: FOR PACEMAKER IMPLANT TECHNIQUE: Frontal and lateral views of the chest. COMPARISON: No relevant prior studies available. FINDINGS: LUNGS AND PLEURAL SPACES: Unremarkable. No consolidation. No pneumothorax. HEART: Unremarkable. No cardiomegaly. MEDIASTINUM: Unremarkable. Normal mediastinal contour. BONES/JOINTS: Unremarkable. No acute fracture. RAD/Chest PA and Lateral IMPRESSION: No acute cardiopulmonary process. Reading Location: [facility]
[2025-02-24 16:29] LABS: Mucous, Urine 0 SEEN /hpf (<or=2+)
[2025-02-24 17:20] LABS: Hematocrit 37.1 % (37-47); Hemoglobin 12.5 g/dL (12.0-15.0); Mean Corp Hgb Conc 33.7 g/dL (32-36); Mean Corpuscular Volume 83.7 fL (81-99); Mean Platelet Vol. 11.1 fl (6.2-12.0); Platelet Count 187 K/mm3 (150-450); RBC Distribution Width CV 13.4 % (11.6-14.6); RBC Distribution Width SD 41.1 fl (35.1-43.9); Red Blood Count 4.43 M/mm3 (4.2-5.4); White Blood Count 6.4 K/mm3 (4.4-11.0)
[2025-02-24 17:28] LABS: Prothrombin Time (Protime)PT. 13.4 SECONDS (11.7-14.9)
[2025-02-24 18:09] LABS: Anion Gap 14 (5-15); BUN 26 mg/dL (4-19); BUN/Creat Ratio 24.9 RATIO (10-20); Calcium,Total 9.6 mg/dL (7.6-11.0); Carbon Dioxide 18.9 mmol/L (21.0-32.0); Chloride 102 mmol/L (98-108); Glucose 180 mg/dL (70-99); Potassium 4.0 mmol/L (3.3-5.1)
[2025-02-24 18:36] LABS: Color, Urine Yellow (Yellow); Glucose, Dipstick Normal (Normal); Ketone-Dipstick Negative (Negative); Leukocyte Esterase-Dipstick 500 /ul (Negative); Nitrite-Dipstick Negative (Negative); Occult Blood-Urine 10 /ul (Negative); Protein-Dipstick 30 mg/dl (Negative); Specific Gravity, Urine 1.010 (1.002-1.030); Urine Bilirubin Dipstick Negative (Negative)
[2025-02-24 19:11] LABS: Squamous Epithelial Cells - UA 0-5 SEEN /hpf (5-10); Transitional Epithelial - Ur 0-5 SEEN /hpf (0-5)
[2025-02-24 19:12] LABS: Red Blood Cells-Urine 0-5 SEEN /hpf (0-5)
[2025-02-26] VITALS (13 sets, daily range): BP systolic 126–206; BP diastolic 61–157; PULSE 62–77; RESP 14–22; TEMP 36.6; O2SAT 94–99; BMI 32.3
[2025-02-27 03:00] VITALS: BP 177/72; PULSE 68; RESP 16; TEMP 36.7; O2SAT 97
--- NOTE | 2025-02-27 04:53 | RAD_ITS ---
PROCEDURE: CHEST 3 VIEW 02/27/2025 REASON FOR EXAM: POST PERMANENT ICD/PACEMAKER TECHNIQUE: CHEST 3 VIEW COMPARISON: 02/24/2025 FINDINGS: Borderline heart size. Unremarkable cardiac device. No pneumothorax. Slight under aeration at the lung bases. No consolidation, or effusion. Status post coronary stenting. RAD/Chest 3 View IMPRESSION: Successful pacer placement. Reading Location: [place] [id number]
[2025-02-27 08:12] VITALS: BP 166/73; PULSE 75; RESP 23; TEMP 36.6; O2SAT 95
--- NOTE | 2025-02-27 08:26 | DCINST_ITS ---
Discharge Instructions DC O2, CPAP, BIPAP needs Home O2 Discharge instructions: No Follow Up Care Test Results: Test results from this visit will be discussed in further detail at your follow- up appointment, if applicable. Discharge Plan Admission Admit Date/Time: 02/26/25 09:34 Attending Provider: Jovanni Patel Primary Care Provider: Teresa Millan NP Discharge Orders/Prescriptions Prescriptions: Continued lisinopril 20 mg tablet 20 mg PO QDAY Qty: 90 3RF clopidogrel 75 mg Tablet 75 mg PO DAILY Qty: 90 3RF amlodipine 5 mg Tablet 5 mg PO DAILY Qty: 90 3RF aspirin 81 mg Tablet,Chewable 81 mg PO BREAKFAST Qty: 90 3RF hydrochlorothiazide 25 mg Tablet 25 mg PO DAILY Qty: 90 3RF (DME) needle (disp) 32 gauge 32 gauge x 5/16" needle See Rx Instructions .ROUTE .MEDSUPPLY Qty: 100 2RF Rx Instructions: As directed nitrofurantoin monohyd/m-cryst [Macrobid] 100 mg capsule 100 mg PO Q12H 7 Days Qty: 14 0RF Rx Instructions: must administer with a meal/food Referrals / Follow Up: Teresa Millan NP, PRINT COLOR OPERATOR-C [Primary Care Provider] - Jovanni Patel MD [Med Staff - Active Staff] - Within 1 Week Disposition Disposition (needs filled in before D/C Order can be placed): Home, Self Care
--- NOTE | 2025-02-27 08:37 | PCM.DC.SUM ---
Providers Date of Admission: 02/26/25 Date of Discharge: 02/27/25 Primary Care Physician: Teresa Millan, CLEVE-C Reason For Visit: I44.1 2nd degree AVB, Mobitz Type ll Diagnosis Discharge Diagnosis (1) Mobitz type 2 second degree atrioventricular block: Status: Acute Code(s): I44.1 - Atrioventricular block, second degree (2) Bradycardia: Status: Acute Code(s): R00.1 - Bradycardia, unspecified Plan Dr. Patel asked me to discharge the patient when admitted for same-day/ambulatory surgery or pacemaker implantation but he stayed overnight Discharged on the same medications. She is taking Macrobid for UTI advised to complete it. She has follow-up with Dr. Patel on 03/04/2025. Discharge medication reconciliation done. Discharge follow-up instructions completed. Discharge process discussed with the patient and all questions were answered to patient's satisfaction. Follow with PCP in 1 to 2 weeks Total time spent, exact 35 minutes on discharge meds reconciliation, examination, coordination of care with nurses and ancillary staff, review of imaging and blood test and discussion with the patient on follow-up instructions. Medications at Discharge Home Medications amlodipine 5 mg tablet 5 mg PO DAILY #90 tabs 11/04/24 aspirin 81 mg chewable tablet 81 mg PO BREAKFAST #90 tabs 11/04/24 clopidogrel 75 mg tablet 75 mg PO DAILY #90 tabs 11/04/24 hydrochlorothiazide 25 mg tablet 25 mg PO DAILY #90 tabs 11/04/24 needle (disp) 32 gauge 32 gauge x /16" #100 ea 01/25/25 lisinopril 20 mg tablet 20 mg PO QDAY #90 tabs 02/18/25 nitrofurantoin monohydrate/macrocrystals 100 mg capsule (Macrobid) 100 mg PO Q12H 7 days #14 caps 02/25/25 Hospital Course Summary of Care Provided Hospital Course: I was asked by Dr. Patel who brought as an outpatient elective procedure of pacemaker implantation for second-degree, 2:1 AV block with bradycardia. Patient is not formally admitted but over he stayed overnight for outpatient procedure as mentioned above. engine monitor showing Paced rhythm at 74 bpm. No acute issues Seen and examined General: Alert, Oriented x3, Cooperative HEENT: Atraumatic, PERRLA, EOMI, Normocephalic. Oral: No Gingival or Mucosal Lesions/ Ulcerations Neck: Supple, No JVD, Negative Carotid Bruits Chest wall/Lungs: Left subclavicular pacemaker, dressing intact and dry. Mild expected tenderness air entry diminished in bilateral lung bases. No crepitation/rhonchi Cardiovascular: Paced rhythm, Normal S1,S2, No M/G/R Abdomen: Bowel Sounds Present, Soft, Non Tender, Non-Distended : No dysuria. No renal angle tenderness. No suprapubic tenderness. Extremities: No edema, Capillary Refill Less than 3 Seconds Skin: Left first toe amputation. 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 No acute focal neurological deficit. Psych/Mental Status: Normal Affect, Appropriate. Physical Exam Narrative I was asked by Dr. Patel who brought as an outpatient elective procedure of pacemaker implantation for second-degree, 2:1 AV block with bradycardia. Patient is not formally admitted but over he stayed overnight for outpatient procedure as mentioned above. engine monitor showing Paced rhythm at 74 bpm. No acute issues Seen and examined General: Alert, Oriented x3, Cooperative HEENT: Atraumatic, PERRLA, EOMI, Normocephalic. Oral: No Gingival or Mucosal Lesions/ Ulcerations Neck: Supple, No JVD, Negative Carotid Bruits Chest wall/Lungs: Left subclavicular pacemaker, dressing intact and dry. Mild expected tenderness air entry diminished in bilateral lung bases. No crepitation/rhonchi Cardiovascular: Paced rhythm, Normal S1,S2, No M/G/R Abdomen: Bowel Sounds Present, Soft, Non Tender, Non-Distended : No dysuria. No renal angle tenderness. No suprapubic tenderness. Extremities: No edema, Capillary Refill Less than 3 Seconds Skin: Left first toe amputation. 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 No acute focal neurological deficit. Psych/Mental Status: Normal Affect, Appropriate. Weight / BMI Weight Weight: 200 lb Body Mass Index (BMI) 32.3 ABG / Lab / Microbiology Data 02/24/25 16:28 02/24/25 16:28 Radiography Diagnostic Testing: Radiology Impression Chest X-Ray 02/27/25 04:53 IMPRESSION: Successful pacer placement. Reading Location: [place] [id number] D/C Instructions DC O2, CPAP, BIPAP Needs Home O2 Discharge instructions: No Meaningful Use Info Meaningful Use Meaningful Use Diagnoses (Choose all that apply): None applicable Discharge Plan Admission Admit Date/Time: 02/26/25 09:34 Attending Provider: Jovanni Patel Primary Care Provider: Teresa Millan [employer]IDE Discharge Orders/Prescriptions Prescriptions: Continued lisinopril 20 mg tablet 20 mg PO QDAY Qty: 90 3RF clopidogrel 75 mg Tablet 75 mg PO DAILY Qty: 90 3RF amlodipine 5 mg Tablet 5 mg PO DAILY Qty: 90 3RF aspirin 81 mg Tablet,Chewable 81 mg PO BREAKFAST Qty: 90 3RF hydrochlorothiazide 25 mg Tablet 25 mg PO DAILY Qty: 90 3RF (DME) needle (disp) 32 gauge 32 gauge x 5/16" needle See Rx Instructions .ROUTE .MEDSUPPLY Qty: 100 2RF Rx Instructions: As directed nitrofurantoin monohyd/m-cryst [Macrobid] 100 mg capsule 100 mg PO Q12H 7 Days Qty: 14 0RF Rx Instructions: must administer with a meal/food Referrals / Follow Up: Jovanni Patel MD [Med Staff - Active Staff] - Within 1 Week (pacer check with Angelina at [facility]- February at 10.00) Teresa Millan [employer]ING [employer]IDE, [employer] [facility] [Primary Care Provider] - Disposition Disposition (needs filled in before D/C Order can be placed): Home, Self Care Charges/Coding Visit Charges Inpatient E&M: 19650 Disch Hosp >30min
--- NOTE | 2025-03-22 09:46 | CL.IE_ITS ---
Patient: CLAYTON ALVAREZ Study Date: 02/26/2025 Performing: Jovanni Patel MD : 1955 Age: 69 Gender: female PROCEDURES PERFORMED LP04-([id number])INITIAL PACER INSERT+DUAL LEADS INDICATIONS Mobitz (type II) AV block PROCEDURE DETAILS The patient was brought to the Catheterization Lab in the postabsorptive nonsedated state. Informed consent was obtained prior to the procedure. Local anesthetic was given subcutaneously to the left subclavian region with Lidocaine 2%. Access was achieved and a guidewire was advanced into the left subclavian vein. Incision was made to the left subclavicular area. A peel-away sheath was inserted into the left subclavian vein. PPM ventricular lead was inserted / positioned to right ventricular apex. PPM ventricular lead testing performed. PPM ventricular lead testing performed. The sheath was then removed. A peel-away sheath was inserted into the left subclavian vein. PPM atrial lead was inserted / positioned to the right atrial appendage. The sheath was then removed. PPM atrial lead testing performed. The Ventricular PM lead sutured in place with 2-0 Silk. The Atrial lead sutured in place with 2-0 Silk. Device pocket was irrigated with antibiotic. PPM generator was attached to the lead(s) and inserted into the pocket. PPM generator was then interrogated by the sas programmer analyst. Subcutaneous closure was completed with 3-0 Vicryl. Skin closure was completed with 4-0 Vicryl. Instrument, sponge, and needle counts were noted to be normal. The patient tolerated the procedure well. Estimated Blood Loss: 15 ml's IMPLANTED / EX-PLANTED DEVICES IMPLANTED DEVICE(S): PPM Ventricular lead - Space Control Supervisor: [employer], Model # INGEVITY , Serial # [id number] Atrial lead - Space Control Supervisor: [employer], Model # INGEVITY , Serial # [id number] PPM Generator - Space Control Supervisor: [employer], Model # ESSENTIO MRI , Serial # [id number] DEVICE PARAMETERS ATRIAL LEAD PARAMETERS: P wave- 4.2 (mV) Current- 1.4 (mA) threshold- 0.8@0.4 MS (V) impedence- 587 (OHMS) VENTRICULAR LEAD PARAMETERS: R wave- PACED (mV) Current- 0.5 (mA) threshold- 0.4 @ 0.4 MS (V) impedence- 868 (OHMS) 10V test, no diaphragmatic capture DEVICE PARAMETERS: Mode- DDD Lower rate- 60 Upper rate- 120 CONCLUSIONS / RECOMMENDATIONS Device Conclusions: Successful implantation of a dual chamber pacemaker Device Recommendations: Follow up with Primary Care Physician PROCEDURE MEDICATIONS Fentanyl 25 mcg IV Versed 1 mg IV Versed 1 mg IV Fentanyl 25 mcg IV Oxygen: 2 L/min via nasal cannula Antibiotic given in appropriate timeframe. Clindamycin 900 mg IV 02/26/2025 08:10:29 Signed By Jovanni Patel MD On 02/26/2025 09:30:29 Jovanni Patel MD
== END 2025-02-27 08:26 | disposition home or self-care (01) ==
LOC: PCU 10:13 → CLSP 10:15 → PCU 10:15
PROVIDERS: Admitting Provider Internal Medicine Cardiovascular Disease; PCP Nurse Practitioner Family; Referring Provider Internal Medicine Cardiovascular Disease; Visit Provider Internal Medicine Cardiovascular Disease
DX: Z45.018 Encounter for adjustment and management of other part of cardiac pacemaker (principal); E11.9 Type 2 diabetes mellitus without complications; I44.1 Atrioventricular block, second degree; R00.1 Bradycardia, unspecified; N39.0 Urinary tract infection, site not specified; Z79.899 Other long term (current) drug therapy; Z79.02 Long term (current) use of antithrombotics/antiplatelets; Z79.82 Long term (current) use of aspirin; I10 Essential (primary) hypertension; E78.5 Hyperlipidemia, unspecified; E66.9 Obesity, unspecified; Z68.32 Body mass index [BMI] 32.0-32.9, adult
CPT/HCPCS: 33208; 36415; 71046; 71047; 80048; 81001; 85027; 85610; 99152; 99153; 99221; C1894; G0378